=== PATIENT | male | born 1935 | race Caucasian/White ===

== ENCOUNTER 2017-05-27 08:59 | Emergency (ER) | payer OTHER ==
[~2017-05-27] VITALS: Ht 190.5 cm; Wt 85.1 kg
[2017-05-27 09:04] VITALS: BP 175/84; PULSE 93; RESP 16; TEMP 98.1; O2SAT 98
[2017-05-27] MEDS ORDERED: ATOR10TA15 PO (09:28)
[2017-05-27] MEDS ORDERED: LEVO75TA3 PO (09:28)
[2017-05-27] MEDS ORDERED: GLIP10TA6 PO (09:28)
[2017-05-27] MEDS ORDERED: VICT18IN SQ (09:28)
--- NOTE | 2017-05-27 09:39 | PD ---
HPI Chief Complaint: General Weakness Time Seen by Provider: 09:29 Travel History International Travel<30 days: No Contact w/Intl Traveler<30days: No Traveled to known affect area: No History of Present Illness HPI This patient complains of generalized weakness. Patient has had some nausea and vomiting for about 24 hours. No diarrhea. No bleeding. He has no abdominal pain or presyncopal symptoms. No ill contacts. No alleviating factors. Symptom severity is moderate. Duration 24 hours PFSH Past Medical History High Cholesterol: Yes Diabetes: Yes Patient Takes Glucophage: No Thyroid Disease: Yes Influenza Vaccination: No ?: Not Social History Alcohol Use: No Tobacco Use: Yes (10/26 PPD) Substance Use: No Allergies-Medications (Allergen,Severity, Reaction): Coded Allergies: No Known Allergies (Unverified , 05/27/17) Reported Meds & Prescriptions Reported Meds & Active Scripts Active Reported Atorvastatin (Atorvastatin Calcium) 10 Mg Tab 10 Mg PO HS Glipizide 10 Mg Tab 10 Mg PO BIDAC Take 30 minutes before a meal Levothyroxine (Levothyroxine Sodium) 75 Mcg Tab 75 Mcg PO DAILY Victoza Inj (Liraglutide Inj) 18 Mg/3 Ml Pen 1.2 Mg SQ DAILY Review of Systems General / Constitutional: No: Fever Eyes: No: Visual changes HENT: No: Headaches Cardiovascular: No: Chest Pain or Discomfort Respiratory: No: Shortness of Breath Gastrointestinal: Positive: Nausea, Vomiting, No: Abdominal Pain Genitourinary: No: Dysuria Musculoskeletal: Positive: Weakness, No: Pain Skin: No Rash Neurologic: Positive: Weakness Psychiatric: No: Depression Endocrine: No: Polydipsia Hematologic/Lymphatic: No: Easy Bruising Physical Exam Narrative GENERAL: Well-nourished, well-developed patient in no apparent distress. SKIN: Focused skin assessment reveals no rash and nodules. Skin is Warm and dry. HEAD: Atraumatic. Normocephalic. EYES: Pupils equal and round. No scleral icterus. No injection or drainage. ENT: No nasal bleeding or discharge. Mucous membranes pink and moist. NECK: Trachea midline. No JVD. No meningeal signs CARDIOVASCULAR: Regular rate and rhythm. No murmur appreciated. RESPIRATORY: No accessory muscle use. Clear to auscultation. Breath sounds equal bilaterally. GASTROINTESTINAL: Abdomen soft, non-tender, nondistended. Hepatic and splenic margins not palpable. MUSCULOSKELETAL: No obvious deformities. No clubbing. No cyanosis. No edema. NEUROLOGICAL: Awake and alert. No obvious cranial nerve deficits. Motor grossly within normal limits. Normal speech. PSYCHIATRIC: Appropriate mood and affect; insight and judgment normal. Data Data Last Documented VS Vital Signs Date Time Temp Pulse Resp B/P Pulse Ox O2 Delivery O2 Flow Rate FiO2 05/27/17 11:11 90 18 175/76 98 Room Air 05/27/17 09:04 98.1 Orders Sodium Chlor 0.9% 1000 Ml Inj (Ns 1000 M (05/27/17 09:45) Ondansetron Inj (Zofran Inj) (05/27/17 09:45) Iv Access Insert/Monitor (05/27/17 09:36) Complete Blood Count With Diff (05/27/17 09:36) Comprehensive Metabolic Panel (05/27/17 09:36) Urinalysis - C+S If Indicated (05/27/17 09:36) Labs Laboratory Tests Test 05/27/17 05/27/17 09:45 11:10 White Blood Count 11.0 TH/MM3 Red Blood Count 4.19 MIL/MM3 Hemoglobin 12.8 GM/DL Hematocrit 38.5 % Mean Corpuscular Volume 91.9 FL Mean Corpuscular Hemoglobin 30.4 PG Mean Corpuscular Hemoglobin 33.1 % Concent Red Cell Distribution Width 11.9 % Platelet Count 182 TH/MM3 Mean Platelet Volume 7.3 FL Neutrophils (%) (Auto) 88.0 % Lymphocytes (%) (Auto) 6.4 % Monocytes (%) (Auto) 4.7 % Eosinophils (%) (Auto) 0.1 % Basophils (%) (Auto) 0.8 % Neutrophils # (Auto) 9.7 TH/MM3 Lymphocytes # (Auto) 0.7 TH/MM3 Monocytes # (Auto) 0.5 TH/MM3 Eosinophils # (Auto) 0.0 TH/MM3 Basophils # (Auto) 0.1 TH/MM3 CBC Comment DIFF FINAL Differential Comment Sodium Level 139 MEQ/L Potassium Level 3.8 MEQ/L Chloride Level 104 MEQ/L Carbon Dioxide Level 24.3 MEQ/L Anion Gap 11 MEQ/L Blood Urea Nitrogen 26 MG/DL Creatinine 1.70 MG/DL Estimat Glomerular Filtration 39 ML/MIN Rate Random Glucose 232 MG/DL Calcium Level 9.2 MG/DL Total Bilirubin 1.1 MG/DL Aspartate Amino Transf 31 U/L (AST/SGOT) Alanine Aminotransferase 40 U/L (ALT/SGPT) Alkaline Phosphatase 102 U/L Total Protein 7.5 GM/DL Albumin 3.8 GM/DL Urine Collection Type CLEAN CATCH Urine Color STRAW Urine Turbidity CLEAR Urine pH 6.0 Urine Specific [place] 1.017 Urine Protein 100 mg/dL Urine Glucose (UA) 1000 OR GREATER mg/dL Urine Ketones 15 mg/dL Urine Occult Blood SMALL Urine Nitrite NEG Urine Bilirubin NEG Urine Leukocyte Esterase NEG Urine RBC 0-2 /hpf Microscopic Urinalysis Comment CULT NOT INDICATED MDM Medical Decision Making Medical Screen Exam Complete: Yes Emergency Medical Condition: Yes Medical Record Reviewed: Yes Differential Diagnosis Symptomatic anemia, dehydration, electrolyte abnormality Narrative Course I have reviewed the patient's electronic medical record. Patient's last blood draw that I can access his from 2012. At that time he was anemic with hemoglobin 9-1/2 as well as renal sufficiency with creatinine of 1-1/2 IV placed CBC shows significant improvement with hemoglobin over 12 Metabolic profile shows chronic renal insufficiency and mild hyperglycemia LFTs are normal Urinalysis is clean of infection does show glucose Gave him 1 L normal saline IV and a dose of IV Zofran Patient is euvolemic. He has generalized weakness but no suspicion of CVA. I'm recommending walker use and follow up with primary care to start with I wrote him some Zofran to use if needed Diagnosis Primary Impression: Generalized weakness Additional Impression: Nausea and vomiting Qualified Code: R11.2 - Nausea and vomiting, intractability of vomiting not specified, unspecified vomiting type Additional Instructions: The patient was advised to follow up with their physician and return if they worsen. Use walker Med/Other Pt SpecificInfo: Prescription(s) given Disposition: DISCHARGE HOME Condition: Stable Chevy Nunes MD May 27, 2017 09:39
[2017-05-27] MEDS ORDERED: SODIUM CHLOR 0.9% 1000 ML INJ 1,000 ML IV ONE (09:45)
[2017-05-27] MEDS ORDERED: ONDANSETRON HCL 4 MG/2 ML VIAL IVP ONE (09:45)
[2017-05-27 10:00] LABS: AUTOMATED NEUTROPHIL # 9.7 TH/MM3 (1.8-7.7); BASOPHIL # 0.1 TH/MM3 (0-0.2); BASOPHIL % 0.8 % (0.0-2.0); EOSINOPHIL % 0.1 % (0.0-4.0); HEMATOCRIT 38.5 % (39.0-51.0); HEMO FLAGS DIFF FINAL; LYMPH % 6.4 % (9.0-44.0); LYMPHOCYTE # 0.7 TH/MM3 (1.0-4.8); MEAN CELL VOLUME 91.9 FL (80.0-100.0); MEAN CORPUSCULAR HEMOGLOBIN 30.4 PG (27.0-34.0); MEAN CORPUSCULAR HGB CONC 33.1 % (32.0-36.0); MONO % 4.7 % (0.0-8.0); PLATELET COUNT 182 TH/MM3 (150-450); RED BLOOD COUNT 4.19 MIL/MM3 (4.50-5.90); RED CELL DISTRIBUTION WIDTH 11.9 % (11.6-17.2)
[2017-05-27 10:22] LABS: ALT (GPT) 40 U/L (12-78); ANION GAP 11 MEQ/L (5-15); BICARBONATE 24.3 MEQ/L (21.0-32.0); CHLORIDE 104 MEQ/L (98-107); GLOMERULAR FILTRATION RATE 39 ML/MIN (>89); POTASSIUM 3.8 MEQ/L (3.5-5.1); SODIUM (NA) 139 MEQ/L (136-145); TOTAL BILIRUBIN ADULT 1.1 MG/DL (0.2-1.0)
[2017-05-27 10:24] LABS: ALKALINE PHOSPHATASE 102 U/L (45-117)
[2017-05-27 10:32] LABS: AST (GOT) 31 U/L (15-37); BLOOD UREA NITROGEN 26 MG/DL (7-18)
[2017-05-27 11:11] VITALS: BP 175/76; PULSE 90; RESP 18; O2SAT 98
[2017-05-27 11:19] LABS: BLOOD, URINE SMALL (NEG); KETONE, URINE 15 mg/dL (NEG); NITRITE,URINE NEG (NEG)
[2017-05-27 11:22] LABS: GLUCOSE,URINE 1000 OR GREATER mg/dL (NEG)
[2017-05-27 11:30] LABS: METHOD OF COLLECTION CLEAN CATCH; URINE COLOR STRAW (YELLW/STRAW)
[2017-05-27 11:32] LABS: COMMENT (UR) CULT NOT INDICATED; CULTURE IF INDICATED CULT NOT INDICATED; RBC, URINE 0-2 /hpf (0-3)
[2017-05-27] MEDS ORDERED: ZOFR4TAB PO (11:46)
== END 2017-05-27 12:10 | disposition home or self-care (01) ==
LOC: PHED 08:59
DX: R53.1 Weakness (principal); R11.2 Nausea with vomiting, unspecified; F17.200 Nicotine dependence, unspecified, uncomplicated
CPT/HCPCS: 80053; 81001; 85025; 96361; 96374; 99284; J2405; J7030

== ENCOUNTER 2018-04-26 19:01 | Inpatient (IN) ==
--- NOTE | 2018-04-26 20:22 | XR ---
EXAM DATE: 04/26/2018 8:14 PM EDT AGE/SEX: 82 years / Male INDICATIONS: Right hip pain after fall down stairs. CLINICAL DATA: This is the patient's initial encounter. Patient reports that signs and symptoms have been present for 1 day and indicates a pain score of 1/10. MEDICAL/SURGICAL HISTORY: None. None. COMPARISON: None . FINDINGS: 3 views of the pelvis and right hip reveal an acute nondisplaced intertrochanteric hip fracture on th e right. No angulation or distraction. Remaining pelvis is intact. Soft tissues are unremarkable. CONCLUSION: Acute nondisplaced right hip intertrochanteric fracture. Electronically signed by: Bowen Fairchild MD 04/26/2018 8:21 PM EDT
[2018-04-26] MEDS ORDERED: Bisacodyl 10 MG Supp RECTAL PRN (20:47)
[2018-04-26] MEDS ORDERED: Temazepam 15 MG Capsule PO PRN (20:47)
[2018-04-26] MEDS ORDERED: Dextrose 50% in Water 50 ML Vial IV.PUSH PRN (20:47)
--- NOTE | 2018-04-26 21:11 | XR ---
EXAM DATE: 04/26/2018 9:03 PM EDT AGE/SEX: 82 years / Male INDICATIONS: Evaluate for pneumothorax, pneumonia or communicable diseases. Pre-op for right hip astrid aye. CLINICAL DATA: This is the patient's initial encounter. Patient reports that signs and symptoms have been present for 1 day and indicates a pain score of 0/10. MEDICAL/SURGICAL HISTORY: Diabetes mellitus type II. None. COMPARISON: None. FINDINGS: A single AP view of the chest demonstrates the lungs to be symmetrically aerated without evidence of infiltrate or effusion. 7 mm nodule projects over the right base. The cardiomediastinal contours are unremarkable. Osseous structures are intact. CONCLUSION: 1. 7 mm right lower lobe pulmonary nodule. An outpatient follow-up CT of the thorax without IV co ntrast is suggested to further assess. 2. Clear lungs otherwise. Electronically signed by: Bowen Fairchild MD 04/26/2018 9:10 PM EDT
--- NOTE | 2018-04-26 21:18 | ED ---
[facility] General Chief Complaint: Fall Stated Complaint: fall/evac Time Seen by Provider: 04/26/18 19:31 Source: patient Mode of arrival: EMS Limitations: no limitations History of Present Illness HPI Narrative: Is a well 82-year-old male presents to the emergency department fall, right hip pain. States he was walking up stairs when he tripped and fell and on his right hip. He has pain with any movement of the right hip, pain with any attempted weightbearing. Is not on any blood thinners. Denies his head. Denies pain anywhere else. His small abrasion to his right elbow but states that the elbow otherwise feels fine. Related Data Home Medications Medication Instructions Recorded Confirmed glipizide 5 mg PO BID 04/26/18 04/26/18 Allergies Allergy/AdvReac Type Severity Reaction Status Date / Time No Known Allergies Allergy Severe Sneezing Uncoded 04/26/18 19:56 Review of Systems ROS Unobtainable All other systems reviewed negative except as stated in HPI [facility] Medical History Medical History Diabetes (Acute) Social History Social History Smoking Status: Former smoker How Often Do You Have a Drink Containing Alcohol: Monthly or less Recent Travel in [facility] within the Last 8 Weeks: No Recent Out of Country Travel within the Last 8 Weeks: No Immunization History Tetanus Immunization: Unsure Exam Narrative Exam Narrative: GENERAL: Well-appearing 82-year-old man, no acute distress. SKIN: Focused skin assessment warm/dry. Small skin tear to the right elbow. HEAD: Atraumatic. Normocephalic. EYES: Pupils equal and round. No scleral icterus. No injection or drainage. ENT: No nasal bleeding or discharge. Mucous membranes pink and moist. NECK: Trachea midline. No JVD. CARDIOVASCULAR: Regular rate and rhythm. No murmur appreciated. RESPIRATORY: No accessory muscle use. Clear to auscultation. Breath sounds equal bilaterally. GASTROINTESTINAL: Abdomen soft, non-tender, nondistended. Hepatic and splenic margins not palpable. MUSCULOSKELETAL: No obvious deformities. There is pain with any range of motion of the right hip. Pain with palpation of the right hip. Distal knee is unremarkable. Distal perfusion is normal. NEUROLOGICAL: Awake and alert. No obvious cranial nerve deficits. Motor grossly within normal limits. Normal speech. PSYCHIATRIC: Appropriate mood and affect; insight and judgment normal. Course Initial Documented Vital Signs Pulse Rate 82 07/03/18 19:18 Respiratory Rate 17 04/26/18 19:18 Blood Pressure 168/78 H 04/26/18 19:18 Pulse Oximetry 99 04/26/18 19:18 Last Documented Vital Signs Temperature 98.2 F 04/26/18 19:55 Pulse Rate 82 04/26/18 19:18 Respiratory Rate 17 04/26/18 19:18 Blood Pressure 168/78 H 04/26/18 19:18 Pulse Oximetry 99 04/26/18 19:18 Medical Decision Making MDM Narrative Medical decision making narrative: Will 82-year-old with trip and fall and right hip pain. Intertrochanteric hip fracture resulted. No evidence of other injury. On blood thinners. No evidence of head injury. Added preop labs. Spoke with Dr. Tejada, will admit patient. Lab Data Lab results reviewed: No I reviewed the patient's lab results. Imaging Data Radiologist's impression: ITS Impressions Hip X-Ray 04/26/18 19:39 CONCLUSION: Acute nondisplaced right hip intertrochanteric fracture. Chest X-Ray 04/26/18 20:27 CONCLUSION: 1. 7 mm right lower lobe pulmonary nodule. An outpatient follow-up CT of the thorax without IV contrast is suggested to further assess. 2. Clear lungs otherwise. Discharge Plan Discharge Disposition Patient Disposition: 30 Still Patient Discharge Details Discharge Problem: Closed fracture of right hip Physicians Team ED Provider: Jamari Blum Primary Care Provider: Diogo Carr Rxs /Orders / Referrals /Forms Prescriptions: No Action glipizide 5 mg Tablet 5 mg PO BID RF: 0 Discharge Interventions Interventions: Vital Signs Last Done: 04/26/18 19:55 Status ED Status: With Doctor
[2018-04-26 21:47] LABS: Baso % (Auto) 0.5 % (0.0-2.0); Eos # (Auto) 0.2 th/mm3 (0.0-0.4); Hemoglobin 11.9 gm/dL (13.0-17.0); Mean Corpuscular HGB Conc 34.8 % (32.0-36.0); Mean Corpuscular Hemoglobin 32.4 pg (27.0-34.0); Mean Platelet Volume 8.1 fL (7.0-11.0); Mono # (Auto) 0.5 th/mm3 (0.0-0.9); Mono % (Auto) 6.7 % (0.0-8.0); Neut # (Auto) 5.4 th/mm3 (1.8-7.7); Neut % (Auto) 75.8 % (16.0-70.0); Platelet Count 180 th/mm3 (150-450); Red Blood Count 3.66 mil/mm3 (4.50-5.90); Red Cell Distribution Width 12.2 % (11.6-17.2); White Blood Count 7.2 th/mm3 (4.0-11.0)
[2018-04-26 21:52] LABS: Bilirubin,Urine Negative (Negative); Clarity,Urine Clear (Clear); Color,Urine Straw (Yellw/Straw); Glucose,Urine (UA) 500 or Greater mg/dL (Negative); Leukocyte Esterase,Urine Negative (Negative); Nitrite,Urine Negative (Negative); Specific Gravity,Urine 1.017 (1.002-1.035)
[2018-04-26 22:01] LABS: Activated Partial Thrombo Time 23.2 sec (24.3-30.1); Prothrombin Time 10.2 sec (9.8-11.6)
[2018-04-26 22:14] LABS: Albumin 3.3 g/dL (3.4-5.0); Anion Gap 10 meq/L (5-15); Aspartate Aminotransferase 23 U/L (15-37); Blood Urea Nitrogen 19 mg/dL (7-18); Calcium 9.2 mg/dL (8.5-10.1); Carbon Dioxide 25.4 meq/L (21.0-32.0); Chloride 102 meq/L (98-107); Glomerular Filtration Rate 37 mL/min (>89); Glucose,Random 334 mg/dL (74-106); Potassium 4.2 meq/L (3.5-5.1); Sodium 137 meq/L (136-145)
[2018-04-26 22:19] LABS: Alanine Aminotransferase 47 U/L (12-78); Alkaline Phosphatase 94 U/L (45-117); Total Protein 6.4 g/dL (6.4-8.2)
[2018-04-26] MEDS: Insulin NovoLOG Aspart Correctional Sugar Inj SQ SCH (22:28)
[2018-04-26] MEDS: Sod Chloride 0.9% Inj 1,000 ML IV.CONT SCH (22:29)
[2018-04-26] MEDS: Senna/Docusate Sodium 8.6/50 MG Tablet PO SCH (22:30)
--- NOTE | 2018-04-26 23:10 | P.HPIM ---
History of Present Illness Primary Care Physician: Diogo Carr MD History of Present Illness: 82 y/o male with a history of DM presented to the ED after suffering a fall at home. Patient states he was walking out the back porch and fell landing on his right hip. He states the pain is a 6/10, constant throbbing pain, with radiation to his ankle, with no associated symptoms. Better with pain medication , worse with movement. Denies any chest pain or sob. - Inpatient Certification If this patient has been admitted as an Inpatient: I certify that the inpatient services were ordered in accordance with Medicare regulations governing the order. This includes certification that hospital inpatient services are reasonable and necessary and in the case of services not specified as inpatient-only under 42 CFR 419.22(n), that they are appropriately provided as inpatient services in accordance to with the 2-midnight benchmark under 43 CFR 412.3(e) Estimated Total Length of Stay (Days): 2 Plans for Post Hospital Care: Not yet determined PMF - History History Provided By: Patient - Medical History Medical History: Medical History (Last Updated 04/27/18 @ 00:43 by ОЛЕГ Ding) Amputated toe of left foot Diabetes - Surgical History Surgical History: Surgical History (Last Updated 04/27/18 @ 00:43 by ОЛЕГ Ding) Amputated toe of left foot - Family History Family History: Family History (Last Updated 04/27/18 @ 00:44 by ОЛЕГ Ding) Father Prostate cancer - Tobacco History Second Hand Smoke Exposure: No Tobacco Use In Past 30 Days: Yes Smoking Status: Current some day smoker Tobacco Type: Cigarettes Cigarettes Per Day: 2 - Alcohol History How Often Do You Have a Drink Containing Alcohol: Monthly or less - Travel History Recent Travel in the [place] Within the Last 8 Weeks: No Recent Travel Out of the Country Within the Last 8 Weeks: No - Immunization History Tetanus Immunization: Unsure Medications and Allergies Active Medications: Active Medications Hydrocodone Bitart/Acetaminophen (Benedict 5/325) 1 tab PO Q4H PRN PRN Reason: PAIN SCALE 1 TO 10 Al Hydroxide/Mg Hydroxide (Milk Of Magnesia Liq) 30 ml PO Q12H PRN PRN Reason: Mild Constipation Bisacodyl (Dulcolax Supp) 10 mg RECTAL DAILY PRN PRN Reason: SEVERE CONSITIPATION Dextrose (D50w Vial) 50 ml IV.PUSH UNSCH PRN PRN Reason: PER HYPOGLYCEMIA PROTOCOL Glucagon (Glucagon Inj) 1 mg OTHER PRN PRN PRN Reason: for Hypoglycemia Protocol Sodium Chloride (Ns Inj) 1,000 mls @ 50 mls/hr IV.CONT .Q20H [facility] Last Admin: 04/26/18 22:29 Dose: 50 mls/hr Insulin Aspart (Novolog Insulin Suppl Scale Inj) 0 unit SQ ACHS [facility]; Protocol Last Admin: 04/26/18 22:28 Dose: 100 unit Lactulose (Lactulose Liq) 30 ml PO DAILY PRN PRN Reason: SEVERE CONSITIPATION Senna/Docusate Sodium (Roxy-Colace) 1 tab PO BID [facility] Last Admin: 04/26/18 22:30 Dose: 1 tab Sennosides (Senokot) 17.2 mg PO Q12H PRN PRN Reason: Moderate Constipation Sodium Chloride (Ns Flush) 2 ml IV.FLUSH PRN PRN PRN Reason: FLUSH AFTER USING IV ACCESS Temazepam (Restoril) 15 mg PO HS PRN PRN Reason: INSOMNIA Allergies Allergy/AdvReac Type Severity Reaction Status Date / Time No Known Allergies Allergy Severe Sneezing Uncoded 04/26/18 19:56 Home Medications Medication Instructions Recorded Confirmed Type glipizide 5 mg PO BID 04/26/18 04/26/18 History Exam Vital signs: Vital Signs 04/26/18 19:18 04/26/18 19:55 Temperature 98.2 F Pulse Rate 82 Respiratory Rate 17 Blood Pressure 168/78 H Pulse Oximetry 99 Intake & Output 04/26/18 04/26/18 04/27/18 06:59 18:59 06:59 Weight 86.183 kg - Constitutional no acute distress - Routine HEENT Exam Head: Present: normocephalic Eye: Present: EOMI, PERRL - Routine Neck Exam Present: supple, full ROM - Routine Respiratory Exam Absent: accessory muscle use, wheezes, crackles - Routine Cardiovascular Exam Present: RRR - Routine Abdominal Exam Present: soft, normoactive bowel sounds. Absent: distended - Routine Extremities Exam Present: edema (Right hip), pulses intact - Detailed Lower Extremity Exam Upper leg: Right: deformity, swelling, tenderness - Routine Skin Exam Present: intact - Routine Neurological Exam Present: alert, oriented X3, normal speech Results - Labs CBC & Chem 7: 04/26/18 20:45 04/26/18 20:45 Labs: Short CBC 04/26/18 Range/Units 20:45 WBC 7.2 (4.0-11.0) th/mm3 Hgb 11.9 L (13.0-17.0) gm/dL Hct 34.0 L (39.0-51.0) % Plt Count 180 (150-450) th/mm3 BMP 04/26/18 20:45 Sodium 137 Potassium 4.2 Chloride 102 Carbon Dioxide 25.4 BUN 19 H Creatinine 1.77 H Calcium 9.2 Liver Function 04/26/18 Range/Units 20:45 Total Bilirubin 0.4 (0.2-1.0) mg/dL AST 23 (15-37) U/L ALT 47 (12-78) U/L Alkaline Phosphatase 94 (45-117) U/L Albumin 3.3 L (3.4-5.0) g/dL Urine 04/26/18 Range/Units 20:45 Urine Color Straw (Yellw/Straw) Urine Clarity Clear (Clear) Urine pH 7.0 (5.0-8.5) Ur Specific [place] 1.017 (1.002-1.035) Urine Protein Negative (Neg-Trace) mg/dL Urine Glucose (UA) 500 or greater (Negative) mg/dL - Imaging Impressions Hip X-Ray 04/26/18 19:39 CONCLUSION: Acute nondisplaced right hip intertrochanteric fracture. Chest X-Ray 04/26/18 20:27 CONCLUSION: 1. 7 mm right lower lobe pulmonary nodule. An outpatient follow-up CT of the thorax without IV contrast is suggested to further assess. 2. Clear lungs otherwise. Caprini VTE Risk Assessment Caprini VTE Risk Assessment: No/Low Risk (score <= 1) Caprini Risk Assessment Model: Point Value = 1 Point Value = 2 Point Value = 3 Point Value = 5 Age 41-60 Minor surgery BMI > 25 kg/m2 Swollen legs Varicose veins or History of unexplained or recurrent spontaneous Oral contraceptives or hormone replacement Sepsis (< 1 month) Serious lung disease, including pneumonia (< 1 month) Abnormal pulmonary function Acute myocardial infarction Congestive heart failure (< 1 month) History of inflammatory bowel disease Medical patient at bed rest Age 61-74 Arthroscopic surgery Major open surgery (> 45 min) Laparoscopic surgery (> 45 min) Malignancy Confined to bed (> 72 hours) Immobilizing plaster cast Central venous access Age >= 75 History of VTE Family history of VTE Factor V Leiden Prothrombin [id number] Lupus anticoagulant Anticardiolipin antibodies Elevated serum homocysteine Heparin-induced thrombocytopenia Other congenital or acquired thrombophilia Stroke (< 1 month) Elective arthroplasty Hip, pelvis, or leg fracture Acute spinal cord injury (< 1 month) Prophylaxis Regimen: Total Risk Factor Score Risk Level Prophylaxis Regimen 0-1 Low Early ambulation 2 Moderate Order ONE of the following: *Sequential Compression Device (SCD) *Heparin 5000 units SQ BID 3-4 Higher Order ONE of the following medications: *Heparin 5000 units SQ TID *Enoxaparin/Lovenox 40 mg SQ daily (WT < 150 kg, CrCl > 30 mL/min) *Enoxaparin/Lovenox 30 mg SQ daily (WT < 150 kg, CrCl > 10-29 mL/min) *Enoxaparin/Lovenox 30 mg SQ BID (WT < 150 kg, CrCl > 30 mL/min) AND/OR *Sequential Compression Device (SCD) 5 or more Highest Order ONE of the following medications: *Heparin 5000 units SQ TID (Preferred with Epidurals) *Enoxaparin/Lovenox 40 mg SQ daily (WT < 150 kg, CrCl > 30 mL/min) *Enoxaparin/Lovenox 30 mg SQ daily (WT < 150 kg, CrCl > 10-29 mL/min) *Enoxaparin/Lovenox 30 mg SQ BID (WT < 150 kg, CrCl > 30 mL/min) AND *Sequential Compression Device (SCD) Assessment and Plan - Plan Right hip fracture -Hip x ray reveiwed and shows an acute non displaced right hip intertrochanteric fracture. -Pain management with PO norco, Morphine IV if needed for breakthrough -Consult orthopedics -NPO, IVF DM, chronic -Accu checks with SSI -Hold home medication while npo -Diabetic diet when no longer NPO DVT prophylaxis: SCD to non affected leg Code Status: Full Discussed Condition With: Patient and RN
[2018-04-27] MEDS ORDERED: Morphine Inj 4 MG/ML Vial IV.PUSH ONE (00:30)
[2018-04-27] MEDS ORDERED: Morphine Inj 4 MG/ML Vial IV.PUSH PRN (00:40)
[2018-04-27] MEDS ORDERED: Chlorhexidine Gluconate 2% 1 Pack (2 Cloths) TOPICAL SCH ×2 (02:45)
[2018-04-27] MEDS ORDERED: Sodium Chlor 0.9% Inj 500 ML IV.SIG SCH ×2 (03:00)
[2018-04-27 06:49] LABS: Baso % (Auto) 0.4 % (0.0-2.0); Eos # (Auto) 0.1 th/mm3 (0.0-0.4); Eos % (Auto) 1.3 % (0.0-4.0); Hematocrit 31.7 % (39.0-51.0); Hemoglobin 11.1 gm/dL (13.0-17.0); Lymph # (Auto) 1.1 th/mm3 (1.0-4.8); Lymph % (Auto) 12.6 % (9.0-44.0); Mean Corpuscular HGB Conc 34.9 % (32.0-36.0); Mean Corpuscular Volume 91.6 fL (80.0-100.0); Mean Platelet Volume 7.7 fL (7.0-11.0); Mono # (Auto) 0.6 th/mm3 (0.0-0.9); Mono % (Auto) 7.3 % (0.0-8.0); Neut # (Auto) 6.9 th/mm3 (1.8-7.7); Neut % (Auto) 78.4 % (16.0-70.0); Platelet Count 161 th/mm3 (150-450); Red Blood Count 3.46 mil/mm3 (4.50-5.90); White Blood Count 8.7 th/mm3 (4.0-11.0)
[2018-04-27 07:09] LABS: Calcium 8.8 mg/dL (8.5-10.1); Carbon Dioxide 24.3 meq/L (21.0-32.0); Potassium 4.5 meq/L (3.5-5.1)
[2018-04-27] MEDS ORDERED: Sodium Chlor 0.9% Inj 250 ML ONE (08:17)
[2018-04-27] MEDS ORDERED: ceFAZolin 2 GM Premix Inj 2 GM/50 ML PIGGYBACK IV.SIG ONE (08:17)
--- NOTE | 2018-04-27 08:29 | MB ---
cc: Bryan Weaver MD DATE: 04/27/2018 REASON FOR CONSULTATION: Right hip fracture. HISTORY OF PRESENT ILLNESS: An 82-year-old male with a past history of diabetes, who presented to [facility] Emergency Room after a fall at home. He was walking on the back porch, tripped, fell, landed on the right hip. He developed immediate onset of severe pain and is unable to stand, walk, ambulate or bear weight. He had a constant throbbing pain with radiation to the ankle. He denies hitting his head. Denies loss of consciousness. He presented to the emergency room. He was medicated with pain medication, which helped. No shortness of breath, no chest pain. PAST MEDICAL HISTORY: Positive for diabetes mellitus. HOME MEDICATIONS: Include: Glipizide. ALLERGIES: HE HAS NO KNOWN DRUG ALLERGIES. SOCIAL HISTORY: Former smoker, does not currently smoke, drink or use drugs. FAMILY HISTORY: Reviewed, noncontributory. REVIEW OF SYSTEMS: Negative for 10 systems other than HPI. PHYSICAL EXAMINATION: GENERAL: Awake, alert, lying in bed, in mild distress as related to his injury. HEENT: Normocephalic, atraumatic. Pupils round, reactive. Extraocular muscles are intact. NECK: Supple. LUNGS: Clear. HEART: Regular rate and rhythm. ABDOMEN: Soft, nontender. EXTREMITIES: His right hip is shortened and externally rotated. He has pain with passive motion of the right hip. He can flex and extend his ankle and toes distally. SKIN: Warm, dry, intact. NEUROLOGIC: He is awake, alert. No focal deficits. PSYCHIATRIC: His mood is appropriate as well as affect. VITAL SIGNS: Temperature 98.2, pulse is 82, respirations are 17, blood pressure 160/78, pulse oximetry is 99% on room air. LABORATORY DATA: X-rays of the right hip shows an acute right intertrochanteric hip fracture. IMPRESSION: An 82-year-old male status post fall, right intertrochanteric hip fracture. PLAN: I discussed the diagnosis with the patient. Discussed treatment options to have the option of nonoperative treatment versus surgery. Surgery would consist of open reduction and internal fixation with intramedullary nailing of the right hip fracture. The risks of surgery discussed, which include, but not limited to anesthesia, bleeding, infection, damage to nerves and blood vessels, pain, stiffness, failure of hardware, nonunion, malunion, leg length discrepancies, blood clot, pulmonary embolus or even . The patient's pain is severe. He favored the benefits over the risks and he did wish to proceed with surgery. Written consent has been obtained, the surgical site has been marked. Bryan Weaver MD JWHarriett/TL , 08:14 AM , 08:27 AM
[2018-04-27] MEDS ORDERED: Promethazine 25 MG Supp RECTAL PRN (09:13)
[2018-04-27] MEDS ORDERED: Post-op Orders (for Pharmacy) OTHER STA (09:13)
[2018-04-27] MEDS ORDERED: fentaNYL Citrate Inj 100 MCG/2 ML Ampul ONE (09:22)
--- NOTE | 2018-04-27 09:26 | MP ---
cc: Bryan Weaver MD DATE OF OPERATION: 04/27/2018 DATE OF OPERATION: 04/27/2018 PREOPERATIVE DIAGNOSIS: Right intertrochanteric hip fracture. POSTOPERATIVE DIAGNOSIS: Right intertrochanteric hip fracture. PROCEDURE PERFORMED: Right trochanteric femoral nailing for right intertrochanteric hip fracture. SURGEON: Bryan Weaver MD [employer]ER: CHING Castro. ANESTHESIA: General. ESTIMATED BLOOD LOSS: 100 mL. COMPLICATIONS: None. IMPLANTS USED: Synthes 11 x 180 mm titanium trochanteric femoral nail with a 125-degree spiral blade. JUSTIFICATION: This patient is an 82-year-old male who fell and sustained a displaced right intertrochanteric hip fracture. He was taken to [facility] Emergency Room, complained of severe pain. X-ray confirmed the above named findings. Orthopedic surgery was consulted. The patient was counseled on risks, benefits and alternatives of the above-named proposed surgical procedure. He did wish to proceed with surgery. PROCEDURE IN DETAIL: Written consent was obtained. The patient was identified by name, taken to the operating room and placed supine on the operating table. General anesthesia was administered as well as 2 grams of IV Ancef and 1 gram IV vancomycin. The right foot was placed in a padded traction boot. The left leg placed in a padded well leg lama. Longitudinal traction applied to the right lower extremity. Fluoroscopic imaging assisted with preliminary reduction. The right hip and right lower extremity was then prepped and draped using isopropyl alcohol, Hibiclens solution and DuraPrep solution. After a timeout was performed, a longitudinal incision was made over lateral aspect of the right hip. The fascial layer was incised. A guidewire was used to gain entrance into the intramedullary canal of the femur. This was followed by a cannulated entry reamer. Subsequently, a Synthes 11 mm titanium trochanteric femoral nail was inserted into the intramedullary canal of the femur. The 125-degree guide was used to place a guide pin centered into the femoral head on the AP and lateral fluoroscopic projections. Subsequently, a 105 mm titanium spiral blade was implanted over the guidewire. The top locking screw was then secured to create a fixed angle sliding construct distally. The locking jig was used to place a single lateral to medial transverse static locking screw. Fluoroscopic imaging confirmed hardware placement and fracture reduction. The surgical wounds thoroughly irrigated with sterile saline solution. Fascial layer was closed with #1 Vicryl suture, subcutaneous layer with 2-0 Vicryl suture. Skin was closed with Dermabond. Sterile dressing was applied. The patient tolerated the procedure well. No intraoperative complications noted. Vishal Rodrigues PA-C was present for entire procedure to include patient positioning and the procedure itself. The medical necessity of the physician teacher assistant was indicated in this case to the complexity of the procedure. He assisted with appropriate manipulation of the leg and also assisted with retraction of muscle, tendon, bone, and neurovascular structures. He assisted in both achieving and maintaining fracture reduction as well as implantation of the internal fixation device. Bryan Weaver MD JWM/KOBE , 09:07 AM , 09:24 AM
--- NOTE | 2018-04-27 09:42 | XR ---
EXAM DATE: 04/27/2018 9:39 AM EDT AGE/SEX: 82 years / Male INDICATIONS: Post-op ORIF right hip fracture. CLINICAL DATA: This is the patient's subsequent encounter. Patient reports that signs and symptoms h ave been present for 2 days and indicates a pain score of Nonresponsive. MEDICAL/SURGICAL HISTORY: Non-responsive. Non-responsive. COMPARISON: No prior exams available for comparison. CONCLUSION: Fluoroscopic images during placement of trochanter nail right proximal femur/hip fixating an intertro chanteric fracture Electronically signed by: Fran Lopez MD 04/27/2018 9:40 AM EDT
[2018-04-27] MEDS: Insulin NovoLOG Aspart Correctional Sugar Inj SQ SCH ×3 (09:43→21:43)
[2018-04-27] MEDS ORDERED: *Meperidine Inj 25 MG/ML Vial PERIprocedural Use ONLY ONE (09:47)
[2018-04-27] MEDS ORDERED: ceFAZolin Inj 2,000 MG in Sodium Chlor 0.9% Inj 80 ML IV.SIG SCH (10:00)
[2018-04-27] MEDS ORDERED: Glycopyrrolate Inj 1 MG/5 ML Syringe IV.PUSH ONE (11:59)
[2018-04-27] MEDS ORDERED: Lidocaine PF 1% Inj 5 ML Syringe INFILTRATN ONE (11:59)
[2018-04-27] MEDS ORDERED: Phenylephrine/NS 1000 MCG/10ML Syringe IV.PUSH ONE (11:59)
[2018-04-27] MEDS ORDERED: Neostigmine Inj 5 MG/5 ML Syringe IV.PUSH ONE (11:59)
--- NOTE | 2018-04-27 13:05 | P.PNIM ---
Subjective Interval history: Mouth feels dry. Otherwise pain control. Physical Exam Vital signs: Vital Signs 04/26/18 19:18 04/26/18 19:55 04/26/18 22:00 Temperature 98.2 F 97.3 F L Pulse Rate 82 86 Respiratory Rate 17 18 Blood Pressure 168/78 H 101/55 L Pulse Oximetry 99 97 04/27/18 00:00 04/27/18 04:00 04/27/18 08:00 Temperature 98 F 97.8 F 97.7 F Pulse Rate 84 97 H 96 H Respiratory Rate 18 18 18 Blood Pressure 87/53 L 110/64 123/61 Pulse Oximetry 99 96 97 04/27/18 09:14 04/27/18 09:30 04/27/18 09:45 Temperature 98.4 F Pulse Rate 85 78 80 Respiratory Rate 20 15 13 Blood Pressure 105/56 L 83/47 L 94/51 L Pulse Oximetry 100 100 100 04/27/18 10:00 04/27/18 10:15 04/27/18 10:30 Temperature Pulse Rate 80 79 85 Respiratory Rate 14 13 14 Blood Pressure 76/38 L 76/45 L 93/55 L Pulse Oximetry 100 98 98 04/27/18 10:41 04/27/18 10:45 Temperature 97.7 F Pulse Rate 85 Respiratory Rate 13 Blood Pressure 100/55 L Pulse Oximetry 98 99 Intake & Output 04/26/18 04/27/18 04/27/18 18:59 06:59 18:59 Intake Total 800 / 800 Output Total 50 / 50 Balance 750 / 750 Weight 86.183 kg Intake: IV 500 / 500 LR 1000 mL Inj 1,000 ML @ 100 500 / 500 mls/hr IV.CONT .Q10H [facility] Rx#: [id number] Anesthesia Amount 300 / 300 Output: Estimated Blood Loss 50 / 50 Other: Weight On Admission 86.183 kg Narrative: GENERAL: This is a well-nourished, well-developed patient, in no apparent distress. CARDIOVASCULAR: Regular rate and rhythm without murmurs, gallops, or rubs. RESPIRATORY: Clear to auscultation. Breath sounds equal bilaterally. No wheezes , rales, or rhonchi. GASTROINTESTINAL: Abdomen soft, non-tender, nondistended. Normal active bowel sounds MUSCULOSKELETAL: Right hip bandage clean dry intact NEURO: Alert & Oriented x4 to person, place, time, situation. Moves all ext x4 Results - Labs CBC & Chem 7: 04/27/18 06:12 04/27/18 06:12 Laboratory Results - last 24 hr 04/26/18 04/26/18 04/26/18 20:45 20:45 20:45 WBC 7.2 RBC 3.66 L Hgb 11.9 L Hct 34.0 L MCV 93.0 MCH 32.4 MCHC 34.8 RDW 12.2 Plt Count 180 MPV 8.1 Neut % (Auto) 75.8 H Lymph % (Auto) 14.0 [place] % (Auto) 6.7 Eos % (Auto) 3.0 Baso % (Auto) 0.5 Neut # (Auto) 5.4 Lymph # (Auto) 1.0 [place] # (Auto) 0.5 Eos # (Auto) 0.2 Baso # (Auto) 0.0 WBC Differential . Differential Comment Auto diff final PT 10.2 INR 1.0 APTT 23.2 L Sodium 137 Potassium 4.2 Chloride 102 Carbon Dioxide 25.4 Anion Gap 10 BUN 19 H Creatinine 1.77 H Estimated GFR 37 L POC Glucose Random Glucose 334 H Calcium 9.2 Total Bilirubin 0.4 AST 23 ALT 47 Alkaline Phosphatase 94 Total Protein 6.4 Albumin 3.3 L Urine Color Urine Clarity Urine pH Ur Specific [place] Urine Protein Urine Glucose (UA) Urine Ketones Urine Occult Blood Urine Nitrate Urine Bilirubin Urine Urobilinogen Ur Leukocyte Esterase Blood Type Blood Type Recheck Antibody Screen 04/26/18 04/26/18 04/27/18 20:45 22:03 05:50 WBC RBC Hgb Hct MCV MCH MCHC RDW Plt Count MPV Neut % (Auto) Lymph % (Auto) [place] % (Auto) Eos % (Auto) Baso % (Auto) Neut # (Auto) Lymph # (Auto) [place] # (Auto) Eos # (Auto) Baso # (Auto) WBC Differential Differential Comment PT INR APTT Sodium Potassium Chloride Carbon Dioxide Anion Gap BUN Creatinine Estimated GFR POC Glucose 328 H Random Glucose Calcium Total Bilirubin AST ALT Alkaline Phosphatase Total Protein Albumin Urine Color Straw Urine Clarity Clear Urine pH 7.0 Ur Specific [place] 1.017 Urine Protein Negative Urine Glucose (UA) 500 or greater Urine Ketones Negative Urine Occult Blood Negative Urine Nitrate Negative Urine Bilirubin Negative Urine Urobilinogen Less than 2 Ur Leukocyte Esterase Negative Blood Type A Positive Blood Type Recheck Required Antibody Screen Negative 04/27/18 04/27/18 04/27/18 06:12 06:12 09:21 WBC 8.7 RBC 3.46 L Hgb 11.1 L Hct 31.7 L MCV 91.6 MCH 32.0 MCHC 34.9 RDW 12.0 Plt Count 161 MPV 7.7 Neut % (Auto) 78.4 H Lymph % (Auto) 12.6 [place] % (Auto) 7.3 Eos % (Auto) 1.3 Baso % (Auto) 0.4 Neut # (Auto) 6.9 Lymph # (Auto) 1.1 [place] # (Auto) 0.6 Eos # (Auto) 0.1 Baso # (Auto) 0.0 WBC Differential . Differential Comment Auto diff final PT INR APTT Sodium 139 Potassium 4.5 Chloride 104 Carbon Dioxide 24.3 Anion Gap 11 BUN 21 H Creatinine 1.77 H Estimated GFR 37 L POC Glucose 285 H Random Glucose 248 H Calcium 8.8 Total Bilirubin AST ALT Alkaline Phosphatase Total Protein Albumin Urine Color Urine Clarity Urine pH Ur Specific [place] Urine Protein Urine Glucose (UA) Urine Ketones Urine Occult Blood Urine Nitrate Urine Bilirubin Urine Urobilinogen Ur Leukocyte Esterase Blood Type Blood Type Recheck Antibody Screen - Imaging Impressions Hip X-Ray 04/26/18 19:39 CONCLUSION: Acute nondisplaced right hip intertrochanteric fracture. Chest X-Ray 04/26/18 20:27 CONCLUSION: 1. 7 mm right lower lobe pulmonary nodule. An outpatient follow-up CT of the thorax without IV contrast is suggested to further assess. 2. Clear lungs otherwise. Hip X-Ray 04/27/18 00:00 CONCLUSION: Fluoroscopic images during placement of trochanter nail right proximal femur/ hip fixating an intertrochanteric fracture Assessment and Plan - Plan Right intertrochanteric hip fracture status post op daily with orthopedic surgery Dr. Weaver Continue postoperative care, pain control, physical therapy per orthopedic surgery DM type II, chronic -Accu checks with SSI -Resume home glipizide dosing DVT prophylaxis: SCD to non affected leg, Lovenox
[2018-04-27] MEDS: Senna/Docusate Sodium 8.6/50 MG Tablet PO SCH ×2 (14:51→21:41)
[2018-04-27] MEDS: ceFAZolin 2 GM Premix Inj 2 GM/50 ML PIGGYBACK IV.SIG SCH ×2 (15:49→23:57)
--- NOTE | 2018-04-27 21:57 | ECG ---
Date Performed: 04/26/2018 Time Performed: 20:47:16 PTAGE: 82 years EKG: Sinus rhythm BORDERLINE LEFT AXIS DEVIATION LOW QRS VOLTAGE IN PRECORDIAL LEADS BORDERLINE ECG NO PREVIOUS TRACING DOCTOR: Tanner Arambula Interpretating Date/Time 04/27/2018 21:57:09
[2018-04-28 04:13] LABS: Hematocrit 25.5 % (39.0-51.0); Hemoglobin 8.8 gm/dL (13.0-17.0)
--- NOTE | 2018-04-28 07:38 | P.PNOP ---
Subjective Interval history: pain controlled. Physical Exam Vital signs: Vital Signs 04/27/18 08:00 04/27/18 09:14 04/27/18 09:30 Temperature 97.7 F 98.4 F Pulse Rate 96 H 85 78 Respiratory Rate 18 20 15 Blood Pressure 123/61 105/56 L 83/47 L Pulse Oximetry 97 100 100 04/27/18 09:45 04/27/18 10:00 04/27/18 10:15 Temperature Pulse Rate 80 80 79 Respiratory Rate 13 14 13 Blood Pressure 94/51 L 76/38 L 76/45 L Pulse Oximetry 100 100 98 04/27/18 10:30 04/27/18 10:41 04/27/18 10:45 Temperature 97.7 F Pulse Rate 85 85 Respiratory Rate 14 13 Blood Pressure 93/55 L 100/55 L Pulse Oximetry 98 98 99 04/27/18 12:00 04/27/18 15:56 04/27/18 16:00 Temperature 98 F 97.8 F Pulse Rate 85 96 H Respiratory Rate 18 15 18 Blood Pressure 96/50 L 97/54 L Pulse Oximetry 96 95 04/27/18 17:33 04/27/18 20:00 04/28/18 00:00 Temperature 98.4 F 98.3 F Pulse Rate 105 H 101 H Respiratory Rate 15 12 16 Blood Pressure 103/57 L 99/54 L Pulse Oximetry 94 L 93 L 04/28/18 04:00 Temperature 98.1 F Pulse Rate 97 H Respiratory Rate 18 Blood Pressure 100/56 L Pulse Oximetry 93 L Intake & Output 04/27/18 04/28/18 04/28/18 18:59 06:59 18:59 Intake Total 850 / 850 Output Total 50 / 50 400 / 400 Balance 800 / 800 -400 / -400 Intake: IV 550 / 550 LR 1000 mL Inj 1,000 ML @ 100 500 / 500 mls/hr IV.CONT .Q10H [facility] Rx#: [id number] Ancef 2 GM Premix Inj 2 gm In 50 / 50 50 ml @ 100 mls/hr IV.SIG Q8H [facility] Rx#:[id number] Anesthesia Amount 300 / 300 Output: Urine 400 / 400 Estimated Blood Loss 50 / 50 Other: # Voids 0 Narrative: in bed, nad dressing c/d/i neg homans nvi - Constitutional no acute distress Results - Labs CBC & Chem 7: 04/28/18 03:56 04/27/18 06:12 Laboratory Results - last 24 hr 04/27/18 04/27/18 04/27/18 09:21 17:04 20:02 Hgb Hct POC Glucose 285 H 279 H 335 H 04/28/18 03:56 Hgb 8.8 L D Hct 25.5 L POC Glucose - Imaging Impressions Hip X-Ray 04/27/18 00:00 CONCLUSION: Fluoroscopic images during placement of trochanter nail right proximal femur/ hip fixating an intertrochanteric fracture Assessment and Plan - Ortho Post Op Day # 1 - Problem List (1) Closed fracture of right hip Code(s): S72.001A - Fracture of unspecified part of neck of right femur, initial encounter for closed fracture Status: Acute Qualifiers: Encounter type: initial encounter Qualified Code(s): S72.001A - Fracture of unspecified part of neck of right femur, initial encounter for closed fracture - Assessment and Plan s/p R Troch nail wbat daily dressing changes jacinda d/c on asa 81 d/c planning to snf f/up dr. woods 2 weeks
[2018-04-28] MEDS: Multivitamin/Minerals Therapeutic Tablet PO SCH (09:09)
[2018-04-28] MEDS: Folic Acid 1 MG Tablet PO SCH (09:09)
[2018-04-28] MEDS: Insulin NovoLOG Aspart Correctional Sugar Inj SQ SCH ×4 (09:10→21:59)
[2018-04-28] MEDS: ceFAZolin 2 GM Premix Inj 2 GM/50 ML PIGGYBACK IV.SIG SCH (09:11)
[2018-04-28] MEDS: Enoxaparin Inj 40 MG/0.4 ML Syringe SQ SCH (09:12)
[2018-04-28] MEDS: Senna/Docusate Sodium 8.6/50 MG Tablet PO SCH ×2 (09:13→21:57)
--- NOTE | 2018-04-28 11:04 | P.PNIM ---
Subjective Interval history: Patient states that he is still having some pain over the hip area. He is open now going to rehab post hospitalization. Physical Exam Vital signs: Vital Signs 04/27/18 12:00 04/27/18 15:56 04/27/18 16:00 Temperature 98 F 97.8 F Pulse Rate 85 96 H Respiratory Rate 18 15 18 Blood Pressure 96/50 L 97/54 L Pulse Oximetry 96 95 04/27/18 17:33 04/27/18 20:00 04/28/18 00:00 Temperature 98.4 F 98.3 F Pulse Rate 105 H 101 H Respiratory Rate 15 12 16 Blood Pressure 103/57 L 99/54 L Pulse Oximetry 94 L 93 L 04/28/18 04:00 04/28/18 08:00 Temperature 98.1 F 98 F Pulse Rate 97 H 96 H Respiratory Rate 18 18 Blood Pressure 100/56 L 117/56 L Pulse Oximetry 93 L 95 Intake & Output 04/27/18 04/28/18 04/28/18 18:59 06:59 18:59 Intake Total 850 / 850 50 / 50 Output Total 50 / 50 400 / 400 Balance 800 / 800 -350 / -350 Intake: IV 550 / 550 50 / 50 LR 1000 mL Inj 1,000 ML @ 100 500 / 500 mls/hr IV.CONT .Q10H [facility] Rx#: [id number] Ancef 2 GM Premix Inj 2 gm In 50 / 50 50 / 50 50 ml @ 100 mls/hr IV.SIG Q8H [facility] Rx#:[id number] Anesthesia Amount 300 / 300 Output: Urine 400 / 400 Estimated Blood Loss 50 / 50 Other: # Voids 0 Narrative: GENERAL: This is a well-nourished, well-developed patient, in no apparent distress laying in bed. CARDIOVASCULAR: Regular rate and rhythm without murmurs, gallops, or rubs. RESPIRATORY: Clear to auscultation. Breath sounds equal bilaterally. No wheezes , rales, or rhonchi. MUSCULOSKELETAL: Right hip bandage clean dry intact NEURO: Alert & Oriented x4 to person, place, time, situation. Moves all ext x4 Results - Labs CBC & Chem 7: 04/28/18 03:56 04/27/18 06:12 Laboratory Results - last 24 hr 04/27/18 04/27/18 04/28/18 17:04 20:02 03:56 Hgb 8.8 L D Hct 25.5 L POC Glucose 279 H 335 H 04/28/18 08:42 Hgb Hct POC Glucose 265 H Assessment and Plan - Assessment (1) Diabetes mellitus Code(s): E11.9 - Type 2 diabetes mellitus without complications Status: Chronic (2) Closed fracture of right hip Code(s): S72.001A - Fracture of unspecified part of neck of right femur, initial encounter for closed fracture Status: Acute - Plan Right intertrochanteric hip fracture status post op day #[address] Weaver Continue postoperative care, pain control, physical therapy per orthopedic surgery DM type II, chronic and uncontrolled -Accu checks with SSI -Resume home glipizide dosing Will start Levemir DVT prophylaxis: SCD to non affected leg, Lovenox Discharge Planning: Discharge to group home facility when stable. (1) Diabetes mellitus Qualifiers: Diabetes mellitus type: type 2 Diabetes mellitus retirement insulin use: without retirement use (2) Closed fracture of right hip Qualifiers: Encounter type: initial encounter Qualified Code(s): S72.001A - Fracture of unspecified part of neck of right femur, initial encounter for closed fracture
[2018-04-28] MEDS: Sod Chloride 0.9% Inj 1,000 ML IV.CONT SCH (18:36)
[2018-04-28] MEDS: glipiZIDE 5 MG Tablet PO SCH (18:42)
[2018-04-28] MEDS: Insulin Detemir Inj 1,000 UNIT/10 ML Vial SQ SCH (21:59)
[2018-04-29 05:13] LABS: Hematocrit 23.7 % (39.0-51.0); Hemoglobin 8.2 gm/dL (13.0-17.0)
--- NOTE | 2018-04-29 07:28 | P.PNOP ---
Subjective Interval history: pain under control. Physical Exam Vital signs: Vital Signs 04/28/18 08:00 04/28/18 12:00 04/28/18 16:00 Temperature 98 F 98.1 F 98.5 F Pulse Rate 96 H 96 H 93 H Respiratory Rate 18 18 18 Blood Pressure 117/56 L 106/56 L 116/57 L Pulse Oximetry 95 96 95 04/28/18 20:00 04/28/18 23:30 04/29/18 00:00 Temperature 98.5 F 98.0 F Pulse Rate 98 H 104 H Respiratory Rate 18 18 18 Blood Pressure 106/58 L 110/75 Pulse Oximetry 93 L 94 L 04/29/18 01:30 04/29/18 03:00 04/29/18 04:00 Temperature 98.8 F Pulse Rate 98 H Respiratory Rate 17 17 18 Blood Pressure 121/60 Pulse Oximetry 95 Intake & Output 04/28/18 04/29/18 04/29/18 18:59 06:59 18:59 Output Total 650 / 650 Balance -650 / -650 Weight 86.1 kg Output: Urine Amount (Catheter) 650 / 650 Indwelling Urethral Catheter 650 / 650 Narrative: in bed, nad dressing c/d/i neg homans nvi - Constitutional no acute distress - Urinary Catheter Management Indwelling Urethral Catheter Cath placed during this visit: no Results - Labs CBC & Chem 7: 04/29/18 04:48 04/27/18 06:12 Laboratory Results - last 24 hr 04/28/18 04/28/18 04/28/18 08:42 11:38 18:26 Hgb Hct POC Glucose 265 H 254 H 262 H 04/28/18 04/29/18 21:52 04:48 Hgb 8.2 L Hct 23.7 L POC Glucose 210 H Assessment and Plan - Ortho Post Op Day # 2 - Problem List (1) Closed fracture of right hip Code(s): S72.001A - Fracture of unspecified part of neck of right femur, initial encounter for closed fracture Status: Acute Qualifiers: Encounter type: initial encounter Qualified Code(s): S72.001A - Fracture of unspecified part of neck of right femur, initial encounter for closed fracture - Assessment and Plan s/p R Troch nail wbat daily dressing changes lovenox, d/c on asa 81 anemia - monitor d/c [place] d/c planning to snf - cleared by ortho f/up dr. woods 2 weeks
--- NOTE | 2018-04-29 08:35 | P.DS ---
Date of admission: 04/26/18 20:47 Primary care physician: Diogo Carr MD Anticipated date of discharge: 04/29/18 Brief History from admission: 82 y/o male with a history of DM presented to the ED after suffering a fall at home. Patient states he was walking out the back porch and fell landing on his right hip. He states the pain is a 6/10, constant throbbing pain, with radiation to his ankle, with no associated symptoms. Better with pain medication , worse with movement. Denies any chest pain or sob. DS: Diagnosis - Discharge Diagnosis (1) Closed fracture of right hip Status: Acute Diagnosis: Principal (2) Diabetes mellitus Status: Chronic Diagnosis: Secondary DS: Medications - Discharge Medications Prescriptions: hydrocodone-acetaminophen 1 tab PO Q4H PRN #12 tab PRN Reason: Pain Scale 1 To 10 DS: Summary Hospital Course: These are the medical issues addressed during this hospitalization: Right intertrochanteric hip fracture status post right IM nailing of the hip on 04/[address] Weaver Continue postoperative care, pain control, physical therapy per orthopedic surgery DM type II, chronic and uncontrolled -Accu checks with SSI -Resume home glipizide dosing Will start Levemir 10 units subcu nightly for better control of blood sugars DVT prophylaxis: SCD to non affected leg, Lovenox - Time Spent with Patient Total time spent providing and/or coordinating discharge services: Less than 30 minutes - Quality: VTE Deep Vein Thrombosis/Pulmonary Embolism Present on Admission: No Exam Vital signs: Vital Signs 04/28/18 12:00 04/28/18 16:00 04/28/18 20:00 Temperature 98.1 F 98.5 F 98.5 F Pulse Rate 96 H 93 H 98 H Respiratory Rate 18 18 18 Blood Pressure 106/56 L 116/57 L 106/58 L Pulse Oximetry 96 95 93 L 04/28/18 23:30 04/29/18 00:00 04/29/18 01:30 Temperature 98.0 F Pulse Rate 104 H Respiratory Rate 18 18 17 Blood Pressure 110/75 Pulse Oximetry 94 L 04/29/18 03:00 04/29/18 04:00 Temperature 98.8 F Pulse Rate 98 H Respiratory Rate 17 18 Blood Pressure 121/60 Pulse Oximetry 95 Intake & Output 04/28/18 04/29/18 04/29/18 18:59 06:59 18:59 Output Total 650 / 650 Balance -650 / -650 Weight 86.1 kg Output: Urine Amount (Catheter) 650 / 650 Indwelling Urethral Catheter 650 / 650 Narrative: GENERAL: This is a well-nourished, well-developed patient, in no apparent distress. CARDIOVASCULAR: Regular rate and rhythm without murmurs, gallops, or rubs. RESPIRATORY: Clear to auscultation. Breath sounds equal bilaterally. No wheezes , rales, or rhonchi. GASTROINTESTINAL: Abdomen soft, non-tender, nondistended. Normal active bowel sounds MUSCULOSKELETAL: Right hip bandage clean dry intact NEURO: Alert & Oriented x4 to person, place, time, situation. Moves all ext x4 Results Procedures completed during hospitalization: 04/27 right hip fracture status post IM nailing Labs on day of discharge: Labs from last 24 hours 04/29/18 04/28/18 04/28/18 04:48 21:52 18:26 Hgb 8.2 L Hct 23.7 L POC Glucose 210 H 262 H 04/28/18 04/28/18 11:38 08:42 Hgb Hct POC Glucose 254 H 265 H - Impressions ITS Impressions Chest X-Ray 04/26/18 20:27 CONCLUSION: 1. 7 mm right lower lobe pulmonary nodule. An outpatient follow-up CT of the thorax without IV contrast is suggested to further assess. 2. Clear lungs otherwise. Hip X-Ray 04/27/18 00:00 CONCLUSION: Fluoroscopic images during placement of trochanter nail right proximal femur/ hip fixating an intertrochanteric fracture Discharge Plan - Discharge Disposition Patient Disposition: Discharge to SNF - Discharge Condition Condition: Good - Discharge Order Discharge Orders: Discharge Order (Routine); Ordered 04/29/18 Ordered By: Maggy Salvador - Discharge Details Anticipated Discharge Date: 04/29/18 - Physicians Team Primary Care Provider: Diogo Carr Attending Provider: Maggy Salvador Other Providers: Bryan Weaver MD ; [facility],[place]
[2018-04-29] MEDS: Senna/Docusate Sodium 8.6/50 MG Tablet PO SCH (08:48)
[2018-04-29] MEDS: glipiZIDE 5 MG Tablet PO SCH (08:48)
[2018-04-29] MEDS: Enoxaparin Inj 40 MG/0.4 ML Syringe SQ SCH (08:48)
[2018-04-29] MEDS: Multivitamin/Minerals Therapeutic Tablet PO SCH (08:48)
[2018-04-29] MEDS: Folic Acid 1 MG Tablet PO SCH (08:48)
[2018-04-29] MEDS: Insulin NovoLOG Aspart Correctional Sugar Inj SQ SCH (22:19)
[2018-04-29] MEDS: Insulin Detemir Inj 1,000 UNIT/10 ML Vial SQ SCH (22:20)
--- NOTE | 2018-04-29 23:17 | P.PN ---
Subjective Interval history: not seen Physical Exam Vital signs: Vital Signs 04/28/18 23:30 04/29/18 00:00 04/29/18 01:30 Temperature 98.0 F Pulse Rate 104 H Respiratory Rate 18 18 17 Blood Pressure 110/75 Pulse Oximetry 94 L 04/29/18 03:00 04/29/18 04:00 04/29/18 08:00 Temperature 98.8 F 98.3 F Pulse Rate 98 H 92 H Respiratory Rate 17 18 18 Blood Pressure 121/60 100/55 L Pulse Oximetry 95 97 04/29/18 12:00 04/29/18 16:00 04/29/18 19:00 Temperature 98.2 F 98.4 F Pulse Rate 90 94 H Respiratory Rate 18 18 18 Blood Pressure 98/52 L 116/60 Pulse Oximetry 97 95 04/29/18 20:00 Temperature 98.4 F Pulse Rate 99 H Respiratory Rate 18 Blood Pressure 125/60 Pulse Oximetry 95 Intake & Output 04/29/18 04/29/18 04/30/18 06:59 18:59 06:59 Output Total 150 / 150 Balance -150 / -150 Weight 86.1 kg Output: Urine 150 / 150 Other: Date of Last Bowel Movement 04/25/18 - Urinary Catheter Management Indwelling Urethral Catheter Cath placed during this visit: no Results - Labs CBC & Chem 7: 04/29/18 04:48 04/27/18 06:12 Laboratory Results - last 24 hr 04/29/18 04/29/18 04/29/18 04:48 08:30 13:01 Hgb 8.2 L Hct 23.7 L POC Glucose 136 H 217 H 04/29/18 22:11 Hgb Hct POC Glucose 254 H - Imaging ITS Impressions Chest X-Ray 04/26/18 20:27 CONCLUSION: 1. 7 mm right lower lobe pulmonary nodule. An outpatient follow-up CT of the thorax without IV contrast is suggested to further assess. 2. Clear lungs otherwise. Hip X-Ray 04/27/18 00:00 CONCLUSION: Fluoroscopic images during placement of trochanter nail right proximal femur/ hip fixating an intertrochanteric fracture - Procedures 04/27 right hip fracture status post IM nailing Assessment and Plan - Assessment (1) Closed fracture of right hip Code(s): S72.001A - Fracture of unspecified part of neck of right femur, initial encounter for closed fracture Status: Acute (2) Diabetes mellitus Code(s): E11.9 - Type 2 diabetes mellitus without complications Status: Chronic - Plan These are the medical issues addressed during this hospitalization: Right intertrochanteric hip fracture status post right IM nailing of the hip on 04/[address] Weaver Continue postoperative care, pain control, physical therapy per orthopedic surgery DM type II, chronic and uncontrolled -Accu checks with SSI -Resume home glipizide dosing Will start Levemir 10 units subcu nightly for better control of blood sugars CKD stage 3. Nonoliguric. Avoid nephrotoxins. Anemia 2/2 acute blood loss. Monitor RLL nodule. O/p f/u with chest CT DVT prophylaxis: SCD to non affected leg, Lovenox (1) Closed fracture of right hip Qualifiers: Encounter type: initial encounter Qualified Code(s): S72.001A - Fracture of unspecified part of neck of right femur, initial encounter for closed fracture (2) Diabetes mellitus Qualifiers: Diabetes mellitus type: type 2 Diabetes mellitus usp insulin use: without terminal makeup operator use
--- NOTE | 2018-04-30 08:09 | P.PNOP ---
Subjective Interval history: Pt resting comfortably. No other complaints Physical Exam Vital signs: Vital Signs 04/29/18 12:00 04/29/18 16:00 04/29/18 19:00 Temperature 98.2 F 98.4 F Pulse Rate 90 94 H Respiratory Rate 18 Blood Pressure 98/52 L 116/60 Pulse Oximetry 97 95 04/29/18 20:00 04/30/18 00:00 04/30/18 00:29 Temperature 98.4 F 98.6 F Pulse Rate 99 H 102 H Respiratory Rate 18 Blood Pressure 125/60 120/61 Pulse Oximetry 95 95 Intake & Output 04/29/18 04/30/18 04/30/18 18:59 06:59 18:59 Output Total 150 / 150 Balance -150 / -150 Weight 86.1 kg Output: Urine 150 / 150 Other: # Voids 2 Date of Last Bowel Movement 04/25/18 04/27/18 Narrative: in bed, nad dressing c/d/i neg [place]in[place] nvi - Urinary Catheter Management Indwelling Urethral Catheter Cath placed during this visit: no Results - Labs CBC & Chem 7: 04/29/18 04:48 04/27/18 06:12 Laboratory Results - last 24 hr 04/29/18 04/29/18 04/29/18 08:30 13:01 22:11 POC Glucose 136 H 217 H 254 H - Procedures 04/27 right hip fracture status post IM nailing Assessment and Plan - Problem List (1) Closed fracture of right hip Code(s): S72.001A - Fracture of unspecified part of neck of right femur, initial encounter for closed fracture Status: Acute Qualifiers: Encounter type: initial encounter Qualified Code(s): S72.001A - Fracture of unspecified part of neck of right femur, initial encounter for closed fracture - Assessment and Plan s/p R Troch nail wbat daily dressing changes lovenox, d/c on asa 81 anemia - monitor d/c pollard d/c planning to snf - cleared by ortho f/up dr. woods 2 weeks
[2018-04-30] MEDS: Folic Acid 1 MG Tablet PO SCH (08:22)
[2018-04-30] MEDS: Senna/Docusate Sodium 8.6/50 MG Tablet PO SCH (08:22)
[2018-04-30] MEDS: Multivitamin/Minerals Therapeutic Tablet PO SCH (08:22)
[2018-04-30] MEDS: Enoxaparin Inj 40 MG/0.4 ML Syringe SQ SCH (08:22)
== END 2018-04-30 12:00 ==
LOC: NEPC 19:01 → NEDA 20:47 → N06 22:53
PROVIDERS: ADMIT Hospitalist; ATTEND Hospitalist
PROC: ORIFFEM (2018-04-27 08:10)

== ENCOUNTER 2018-05-04 07:16 | Inpatient (IN) ==
[2018-05-04] MEDS ORDERED: Acetaminophen 325 MG Tablet PO ONE (07:47)
[2018-05-04] MEDS ORDERED: Sod Chloride 0.9% Inj 1,000 ML IV.SIG ONE (07:47)
--- NOTE | 2018-05-04 07:58 | ED ---
HPI General Chief Complaint: Recheck/Abnormal Lab/Rx Stated Complaint: Poss Diabetic/Evac Time Seen by Provider: 05/04/18 07:39 Source: patient and EMS Mode of arrival: EMS Limitations: altered mental status History of Present Illness HPI narrative: The patient is a 82-year-old male who presents to the emergency department via EMS for hyperglycemia from a correction. The patient recently had right hip surgery and was just released to a correction on May 03. The patient apparently had elevated blood sugars at the correction with low blood pressure was sent to the emergency department via EMS for evaluation. The patient is a somewhat limited historian, he is able to tell me recently had right hip surgery but thinks the year is 1986. He denies any chest pain, shortness of breath, nausea, vomiting, or abdominal pain. However, EMS noted that the patient's O2 saturation on room air was in the 80s and required oxygen via nonrebreather prior to arrival. The patient does have a history of COPD and is normally on oxygen via nasal cannula at 4 L. The patient denies any history of COPD however. EMS stated the patient was afebrile. The patient is a somewhat limited historian. The patient apparently received NovoLog per EMS at the correction prior to arrival, however, the amount of NovoLog is unknown. MD complaint: altered mental status Onset (ago): hour(s) Related Data Home Medications Medication Instructions Recorded Confirmed glipizide 5 mg PO BID 04/26/18 05/04/18 acetaminophen 650 mg PO Q4H PRN 05/04/18 05/04/18 aspirin 81 mg PO BID 05/04/18 05/04/18 hydrocodone-acetaminophen 1 tab PO Q6H PRN 05/04/18 05/04/18 insulin aspart U-100 [Novolog 20 unit SUB-Q ONCE 05/04/18 05/04/18 U-100 Insulin aspart] magnesium hydroxide [Milk of 30 ml PO DAILY PRN 05/04/18 05/04/18 Magnesia] sennosides 17.2 mg PO DAILY 05/04/18 05/04/18 Previous Rx's Medication Instructions Recorded enoxaparin [Lovenox] 40 mg SUB-Q DAILY #14 ml 04/29/18 insulin aspart U-100 [Novolog See Protocol SUB-Q ACHS #10 ml 04/29/18 U-100 Insulin aspart] insulin detemir U-100 [Levemir 10 unit SUB-Q HS #14 ml 04/29/18 U-100 Insulin] tamsulosin 0.4 mg PO DAILY #30 cap 04/29/18 Allergies Allergy/AdvReac Type Severity Reaction Status Date / Time No Known Allergies Allergy Unverified 05/04/18 09:31 Review of Systems ROS Unobtainable unobtainable due to mental condition Except as stated in HPI: all other systems reviewed are negative Cardiovascular Reports dyspnea (History of COPD requiring oxygen via nasal cannula 4 L) Respiratory Reports dyspnea Gastrointestinal Denies abdominal pain, Denies nausea and Denies vomiting Musculoskeletal Reports limited range of motion (Recent right hip for surgery) Neurologic Reports other [facility] Family History Family History Father Prostate cancer Social History Social History Substance History: No History of Abuse Second Hand Smoke Exposure: No Smoking Status: Former smoker Tobacco Type: Cigarettes Cigarettes Per Day: 2 How Often Do You Have a Drink Containing Alcohol: Never Recent Travel in [facility] within the Last 8 Weeks: No Recent Out of Country Travel within the Last 8 Weeks: No Exam Narrative Exam Narrative: GENERAL: Awake, alert, 82-year-old male who appears his stated age and appears to have mild respiratory distress. SKIN: Focused skin assessment warm/dry. HEAD: Atraumatic. Normocephalic. EYES: No injection or drainage. ENT: No nasal bleeding or discharge. Dry mucous membranes. NECK: Trachea midline. No JVD. CARDIOVASCULAR: Regular, tachycardic with a heart rate of 110. RESPIRATORY: Tachypnea with a respiratory rate of 22. Some audible wheezes bilaterally. GASTROINTESTINAL: Abdomen slightly distended, nontender. MUSCULOSKELETAL: Dressing in place over the right lateral hip. Ecchymosis noted over the right flank and near the right hip. NEUROLOGICAL: Awake and alert. No obvious cranial nerve deficits. Motor grossly within normal limits. Normal speech. Patient is oriented to person, however, thinks the year is 1986. He was able to tell me he recently had right hip surgery, but thought the month was March and that he was located in [place]. Back: Ecchymosis noted over the right flank and right hip. PSYCHIATRIC: Appropriate mood and affect; insight and judgment normal. Course Consultations Consultation #1: The on-call securities underwriter was paged at 10:24 AM for admission. I discussed the patient with Dr. Egan at 10:54 AM who agrees with admission. He requested I discussed the patient with the on-call investigative agent secondary to the elevated troponin and BNP. Time: 10:24 Consultation #2: To the on-call [employer] investigative agent, Dr. Douglass, 10:54 AM in regards to troponin of 5 and BNP of greater than 2300. Call was placed per the securities underwriter request. Time: 10:54 Consultation #3: A call was placed to the patient's orthopedic surgeon, Dr. Bryan Weaver, at 10:55 AM to notify him of the patient's admission as he is less than 30 days postop. I discussed the patient with Dr. Weaver who is aware of the patient's admission to the intensive care unit. Time: 10:55 Initial Documented Vital Signs Temperature 100.2 F H 05/04/18 07:41 Pulse Rate 110 H 05/04/18 07:41 Respiratory Rate 22 05/04/18 07:41 Blood Pressure 88/55 L 05/04/18 07:41 Pulse Oximetry 91 L 05/04/18 07:41 Last Documented Vital Signs Temperature 100.2 F H 05/04/18 07:41 Pulse Rate 110 H 05/04/18 10:42 Respiratory Rate 26 H 05/04/18 10:42 Blood Pressure 88/59 L 05/04/18 10:42 Pulse Oximetry 94 L 05/04/18 10:42 Procedures Intubation Time Out Performed: Yes Sedative: etomidate Mg Given: 20 Paralytic: rocuronium Mg Given: 75 Laryngoscope: Bryan ET Tube Size: 8 ET Tube Uncuffed: No Tube Secured Depth (cm): 24 Intubation Complications: none Critical Care Time Total Critical Care Time: 45 Attestation: Aggregate critical care time was 45 minutes. Time to perform other separately billable procedures was not included in the critical care time. My time did not include minutes spent treating any other patients simultaneously or on activities that did not directly contribute to the patient's treatment. The services I provided to this patient were to treat and/or prevent clinically significant deterioration that could result in: Anoxia, hypoxia, aspiration, pulmonary edema, cardiogenic shock, septic shock, arrhythmia, . I provided critical care services requiring my management, as noted below: Chart data review, documentation time, medication orders and management, vital sign assessments/reviewing monitor data, ordering and reviewing lab tests, ordering and interpreting/reviewing x-rays and diagnostic studies, care of the patient and discussion of the patient with the admitting physicians. Medical Decision Making MDM Narrative Medical decision making narrative: IV was established, labs are drawn and sent, and the patient was placed on cardiac telemetry monitoring and continuous pulse oximetry monitoring. EKG was ordered and interpreted. Chest x-ray was obtained. Blood cultures and lactic acid were sent to lab. The patient was administer 1 L of IV fluids. The patient had an episode of nausea and vomiting after administration of Tylenol. The patient was then administered Reglan. The patient's oxygenation levels fell into the mid 80s, therefore, he was placed back on a nonrebreather and an ABG was obtained. I reviewed the patient' s paperwork from the correction, there is no evidence of a DNR. Therefore, nursing staff called the correction to evaluate for a DNR or advance directives. The patient's breathing did improve on a nonrebreather, oxygen saturation, up into the 90s, patient was more comfortable. Troponin was elevated, greater than 5. The patient was administered aspirin 300 mg rectally. The patient appears to have an end STEMI, possibly secondary to sepsis and/or acute congestive heart failure. The patient's BUN was elevated, creatinine was elevated, patient appears to have prerenal azotemia and dehydration. However, the patient was only administered 1 L of IV fluids secondary to his current pulmonary status. Patient was more comfortable, however, if he does decline he may require intubation. Therefore, the patient will be admitted to the intensive care unit. The patient's BNP was elevated greater than 2300, may have acute congestive heart failure and pulmonary edema. The patient's systolic blood pressures in the 90s, diastolic in the 60s, with a map just over 65, therefore, no further IV fluids were administered. The patient will require echocardiogram and cardiology evaluation. If he continues to decline he may benefit from dobutamine and gentle diuresis as he is already slightly hypertensive. The on-call securities underwriter was paged for admission at 10:23 AM. I discussed the patient with Dr. Egan at 10:54 AM who request cardiology consultation from the emergency department for elevated troponin and BNP. Therefore, a call was placed to the on-call [employer] investigative agent, Dr. Douglass, 10: 56 AM. A call was also placed to the patient's orthopedic surgeon, Dr. Bryan Weaver, as the patient is less than 30 days postop. The patient was reassessed at 11:10 AM, his respiratory rate had increased, he was more lethargic, and his blood pressure had dropped to a systolic of 80. The patient would open his eyes, but appearede to be in acute respiratory distress. Therefore, the patient was intubated using rocuronium and etomidate. Differential Diagnosis Differential Diagnosis: Differential diagnosis includes pneumonia, COPD exacerbation, hyperglycemia, sepsis, UTI, urosepsis, pulmonary embolism, dehydration, electrolyte abnormality. Medical Records Medical records reviewed: Yes I reviewed the patient's medical records. The patient's right hip was repaired by Dr. Bryan Weaver on April 27. Lab Data Result diagrams: 05/04/18 08:30 05/04/18 07:40 Lab Results 05/04/18 05/04/18 05/04/18 Range/Units 07:34 07:40 07:40 WBC (4.0-11.0) th/mm3 RBC (4.50-5.90) mil/mm3 Hgb (13.0-17.0) gm/dL Hct (39.0-51.0) % MCV (80.0-100.0) fL MCH (27.0-34.0) pg MCHC (32.0-36.0) % RDW (11.6-17.2) % Plt Count (150-450) th/mm3 MPV (7.0-11.0) fL Neut % (Auto) (16.0-70.0) % Lymph % (Auto) (9.0-44.0) % Erie % (Auto) (0.0-8.0) % Eos % (Auto) (0.0-4.0) % Baso % (Auto) (0.0-2.0) % Neut # (Auto) (1.8-7.7) th/mm3 Lymph # (Auto) (1.0-4.8) th/mm3 Erie # (Auto) (0.0-0.9) th/mm3 Eos # (Auto) (0.0-0.4) th/mm3 Baso # (Auto) (0.0-0.2) th/mm3 WBC Differential Differential Comment PT (9.8-11.6) sec INR Ratio APTT (24.3-30.1) sec Puncture Site Patient Temperature O2 Saturation (90-100) % ABG pH (7.380-7.420) ABG pCO2 (38-42) mmHg ABG pO2 (61-120) mmHg ABG HCO3 (22-26) mmol/L ABG O2 Content (12.0-20.0) Vol % ABG Base Excess (-2-2) mmol/L ABG Methemoglobin (0-2) % Yannick Test Hemoglobin (12.0-16.0) G/DL Carboxyhemoglobin (0-4) % O2 Delivery Device Liter Flow L/M Critical Value Sodium 136 (136-145) meq/L Potassium 5.1 (3.5-5.1) meq/L Chloride 106 (98-107) meq/L Carbon Dioxide 17.2 L (21.0-32.0) meq/L Anion Gap 13 (5-15) meq/L BUN 77 H (7-18) mg/dL Creatinine 2.99 H (0.60-1.30) mg/dL Estimated GFR 20 L (>89) mL/min POC Glucose 348 H (68-110) mg/dl Random Glucose 341 H (74-106) mg/dL Lactic Acid (0.4-2.0) mmol/L Calcium 8.4 L (8.5-10.1) mg/dL Total Bilirubin 0.9 (0.2-1.0) mg/dL AST 92 H (15-37) U/L ALT 30 (12-78) U/L Alkaline Phosphatase 98 (45-117) U/L Total Creatine Kinase 596 H (39-308) U/L CK-MB (CK-2) 21.3 H (0.5-3.6) ng/mL CK-MB (CK-2) % 3.6 (0.0-4.0) % Troponin I 5.01 H* (0.02-0.05) ng/mL B-Natriuretic Peptide (0-100) pg/mL Total Protein 5.8 L (6.4-8.2) g/dL Albumin 2.1 L (3.4-5.0) g/dL 07/11/18 07/11/18 07/11/18 Range/Units 07:40 08:30 08:30 WBC 14.6 H (4.0-11.0) th/mm3 RBC 2.53 L (4.50-5.90) mil/mm3 Hgb 7.9 L (13.0-17.0) gm/dL Hct 23.9 L (39.0-51.0) % MCV 94.4 (80.0-100.0) fL MCH 31.2 (27.0-34.0) pg MCHC 33.1 (32.0-36.0) % RDW 13.0 (11.6-17.2) % Plt Count 298 (150-450) th/mm3 MPV 7.9 (7.0-11.0) fL Neut % (Auto) 85.0 H (16.0-70.0) % Lymph % (Auto) 6.6 L (9.0-44.0) % Erie % (Auto) 8.0 (0.0-8.0) % Eos % (Auto) 0.1 (0.0-4.0) % Baso % (Auto) 0.3 (0.0-2.0) % Neut # (Auto) 12.4 H (1.8-7.7) th/mm3 Lymph # (Auto) 1.0 (1.0-4.8) th/mm3 Erie # (Auto) 1.2 H (0.0-0.9) th/mm3 Eos # (Auto) 0.0 (0.0-0.4) th/mm3 Baso # (Auto) 0.0 (0.0-0.2) th/mm3 WBC Differential . Differential Comment Auto diff final PT 10.7 (9.8-11.6) sec INR 1.1 Ratio APTT 24.3 (24.3-30.1) sec Puncture Site Patient Temperature O2 Saturation (90-100) % ABG pH (7.380-7.420) ABG pCO2 (38-42) mmHg ABG pO2 (61-120) mmHg ABG HCO3 (22-26) mmol/L ABG O2 Content (12.0-20.0) Vol % ABG Base Excess (-2-2) mmol/L ABG Methemoglobin (0-2) % Yannick Test Hemoglobin (12.0-16.0) G/DL Carboxyhemoglobin (0-4) % O2 Delivery Device Liter Flow L/M Critical Value Sodium (136-145) meq/L Potassium (3.5-5.1) meq/L Chloride (98-107) meq/L Carbon Dioxide (21.0-32.0) meq/L Anion Gap (5-15) meq/L BUN (7-18) mg/dL Creatinine (0.60-1.30) mg/dL Estimated GFR (>89) mL/min POC Glucose (68-110) mg/dl Random Glucose (74-106) mg/dL Lactic Acid 2.7 H (0.4-2.0) mmol/L Calcium (8.5-10.1) mg/dL Total Bilirubin (0.2-1.0) mg/dL AST (15-37) U/L ALT (12-78) U/L Alkaline Phosphatase (45-117) U/L Total Creatine Kinase (39-308) U/L CK-MB (CK-2) (0.5-3.6) ng/mL CK-MB (CK-2) % (0.0-4.0) % Troponin I (0.02-0.05) ng/mL B-Natriuretic Peptide (0-100) pg/mL Total Protein (6.4-8.2) g/dL Albumin (3.4-5.0) g/dL 05/04/18 05/04/18 05/04/18 Range/Units 08:30 08:48 10:31 WBC (4.0-11.0) th/mm3 RBC (4.50-5.90) mil/mm3 Hgb (13.0-17.0) gm/dL Hct (39.0-51.0) % MCV (80.0-100.0) fL MCH (27.0-34.0) pg MCHC (32.0-36.0) % RDW (11.6-17.2) % Plt Count (150-450) th/mm3 MPV (7.0-11.0) fL Neut % (Auto) (16.0-70.0) % Lymph % (Auto) (9.0-44.0) % Erie % (Auto) (0.0-8.0) % Eos % (Auto) (0.0-4.0) % Baso % (Auto) (0.0-2.0) % Neut # (Auto) (1.8-7.7) th/mm3 Lymph # (Auto) (1.0-4.8) th/mm3 Erie # (Auto) (0.0-0.9) th/mm3 Eos # (Auto) (0.0-0.4) th/mm3 Baso # (Auto) (0.0-0.2) th/mm3 WBC Differential Differential Comment PT (9.8-11.6) sec INR Ratio APTT (24.3-30.1) sec Puncture Site Right radial Patient Temperature 98.6 O2 Saturation 88 L* (90-100) % ABG pH 7.29 L* (7.380-7.420) ABG pCO2 33 L (38-42) mmHg ABG pO2 68 (61-120) mmHg ABG HCO3 15 L* (22-26) mmol/L ABG O2 Content 10.2 L (12.0-20.0) Vol % ABG Base Excess -10.2 L (-2-2) mmol/L ABG Methemoglobin 0.8 (0-2) % Yannick Test Present Hemoglobin 8.2 L (12.0-16.0) G/DL Carboxyhemoglobin 1.9 (0-4) % O2 Delivery Device Simple mask Liter Flow 6.00 L/M Critical Value Yes Sodium (136-145) meq/L Potassium (3.5-5.1) meq/L Chloride (98-107) meq/L Carbon Dioxide (21.0-32.0) meq/L Anion Gap (5-15) meq/L BUN (7-18) mg/dL Creatinine (0.60-1.30) mg/dL Estimated GFR (>89) mL/min POC Glucose 341 H (68-110) mg/dl Random Glucose (74-106) mg/dL Lactic Acid (0.4-2.0) mmol/L Calcium (8.5-10.1) mg/dL Total Bilirubin (0.2-1.0) mg/dL AST (15-37) U/L ALT (12-78) U/L Alkaline Phosphatase (45-117) U/L Total Creatine Kinase (39-308) U/L CK-MB (CK-2) (0.5-3.6) ng/mL CK-MB (CK-2) % (0.0-4.0) % Troponin I (0.02-0.05) ng/mL B-Natriuretic Peptide 2359 H (0-100) pg/mL Total Protein (6.4-8.2) g/dL Albumin (3.4-5.0) g/dL Imaging Data Radiologist's impression: ITS Impressions Chest X-Ray 05/04/18 07:48 CONCLUSION: Marked deterioration appearance of the chest from comparison study. Significant perihilar infiltrate evident. ECG Data EKG Prior to Arrival: No Attestation: I personally reviewed and interpreted this ECG as follows: Interpretation: EKG reveals sinus tachycardia with a heart rate of 109. Intraventricular conduction delay with QRS of 135 ms. Q-wave noted in lead V1 and V2. Discharge Plan Discharge Disposition Patient Disposition: 30 Still Patient Discharge Condition Condition: Serious Discharge Details Diagnosis: Congestive heart failure, Acute hyperglycemia, Acute renal failure (ARF) Physicians Team ED Provider: Deo Shrestha Primary Care Provider: Diogo Carr Attending Provider: Nessa Egan Other Providers: Get Douglass Status ED Status: Admitted Patient
[2018-05-04] MEDS ORDERED: Azithromycin Inj 500 MG in Sodium Chlor 0.9% Inj 250 ML IV.SIG ONE (08:25)
[2018-05-04 08:36] LABS: Alkaline Phosphatase 98 U/L (45-117); Total Protein 5.8 g/dL (6.4-8.2)
[2018-05-04 08:50] LABS: Alanine Aminotransferase 30 U/L (12-78); Albumin 2.1 g/dL (3.4-5.0); Anion Gap 13 meq/L (5-15); Blood Urea Nitrogen 77 mg/dL (7-18); Calcium 8.4 mg/dL (8.5-10.1); Carbon Dioxide 17.2 meq/L (21.0-32.0); Chloride 106 meq/L (98-107); Glomerular Filtration Rate 20 mL/min (>89); Glucose,Random 341 mg/dL (74-106); Sodium 136 meq/L (136-145)
[2018-05-04 08:51] LABS: Aspartate Aminotransferase 92 U/L (15-37); Potassium 5.1 meq/L (3.5-5.1)
[2018-05-04 08:53] LABS: ABG Base Excess -10.2 mmol/L (-2-2); ABG PCO2 33 mmHg (38-42); ABG PO2 68 mmHg (61-120)
[2018-05-04 08:58] LABS: Baso % (Auto) 0.3 % (0.0-2.0); Eos % (Auto) 0.1 % (0.0-4.0); Hematocrit 23.9 % (39.0-51.0); Hemoglobin 7.9 gm/dL (13.0-17.0); Lymph % (Auto) 6.6 % (9.0-44.0); Mean Corpuscular HGB Conc 33.1 % (32.0-36.0); Mean Corpuscular Hemoglobin 31.2 pg (27.0-34.0); Mean Corpuscular Volume 94.4 fL (80.0-100.0); Mean Platelet Volume 7.9 fL (7.0-11.0); Mono # (Auto) 1.2 th/mm3 (0.0-0.9); Neut # (Auto) 12.4 th/mm3 (1.8-7.7); Platelet Count 298 th/mm3 (150-450); Red Blood Count 2.53 mil/mm3 (4.50-5.90); White Blood Count 14.6 th/mm3 (4.0-11.0)
[2018-05-04 09:03] LABS: CKMB Percent 3.6 % (0.0-4.0); Creatine Kinase MB 21.3 ng/mL (0.5-3.6)
[2018-05-04 09:04] LABS: Activated Partial Thrombo Time 24.3 sec (24.3-30.1); INR 1.1 Ratio; Prothrombin Time 10.7 sec (9.8-11.6)
[2018-05-04 09:06] LABS: Troponin I 5.01 ng/mL (0.02-0.05)
[2018-05-04] MEDS ORDERED: Aspirin 300 MG Supp RECTAL ONE (09:07)
--- NOTE | 2018-05-04 09:08 | XR ---
EXAM DATE: 05/04/2018 8:36 AM EDT AGE/SEX: 82 years / Male INDICATIONS: Congestion, shortness of breath, fever. CLINICAL DATA: This is the patient's initial encounter. Patient reports that signs and symptoms have been present for 2 days and indicates a pain score of 0/10. MEDICAL/SURGICAL HISTORY: Congestive heart failure. . Total right hip. COMPARISON: C, CHEST 1V SINGLE AP, 04/26/2018. . FINDINGS: Perihilar interstitial changes are present with normal heart size. Considerations would include infla mmatory process and cardiac interstitial edema. There is no pneumothorax. The portion of the bony ske leton visualized is unremarkable. CONCLUSION: Marked deterioration appearance of the chest from comparison study. Significant perihilar infiltrate evident. Electronically signed by: Chao Smith MD 05/04/2018 9:07 AM EDT
[2018-05-04] MEDS ORDERED: Heparin Drip 25,000 UNIT/250 ML BAG IV.CONT PRN (11:00)
[2018-05-04] MEDS ORDERED: Etomidate Inj 20 MG/10 ML Ampul IV.PUSH ONE (11:14)
[2018-05-04] MEDS ORDERED: Norepinephrine Inj 4 MG/4 ML Ampul ONE (11:23)
[2018-05-04] MEDS ORDERED: fentaNYL 10 mcg/mL Premix Drip 2,500 MCG/250 ML BAG ONE (11:37)
[2018-05-04] MEDS ORDERED: Midazolam 50 MG/50 ML Inj 50 MG/50 ML BAG IV.CONT ONE (11:37)
--- NOTE | 2018-05-04 11:51 | P.PCN ---
Date of procedure: 05/04/18 Pre-op diagnosis: Cardiogenic shock Post-op diagnosis: same Procedure: CONSENT: Emergency procedure due to hypotension, cardiogenic shock PROCEDURE SUMMARY: Emergency central line placement for cardiogenic shock and administration of vasopressors. Hands were washed immediately prior to the procedure. I wore a surgical cap, mask with protective eyewear, full gown and sterile gloves throughout the procedure. The patient was placed in Trendelenburg position. LEFTchest region was prepped using chlorhexidine scrub and draped in sterile fashion using a three quarter sheet drape and sterile towels. The introducer needle was inserted into the left subclavian vein. Venous blood was withdrawn. The syringe was removed and a guidewire was advanced into the introducer needle , following which introducer needle was exchanged for a dilator over the guidewire. After appropriate dilation was obtained, the dilator was exchanged over the wire for a triple lumen, 7F, antibiotic coated central venous catheter. The wire was removed and the catheter was sutured in place at 18 cm. A sterile central line dressing was placed over the catheter at the insertion site. The patient tolerated the procedure without any hemodynamic compromise. At time of procedure completion, all ports aspirated and flushed properly. Post- procedure chest x-ray is pending at this time. Estimated blood loss is <1ml. Anesthesia: regional Surgeon: Nessa Egan Estimated blood loss (mL): 1 Pathology: none sent Condition: critical Disposition: ICU
[2018-05-04 11:58] LABS: Amorphous Sediment,Urine Rare /hpf; Bacteria,Urine Rare /hpf; Bilirubin,Urine Negative (Negative); Clarity,Urine Hazy (Clear); Color,Urine Amber (Yellw/Straw); Glucose,Urine (UA) 50 mg/dL (Negative); Hyaline Casts,Urine 25 /lpf (0-3); Leukocyte Esterase,Urine Negative (Negative); Mucus,Urine Few /lpf (Occasional); Nitrite,Urine Negative (Negative); Squamous Epithelial Cell,Urine <1 /hpf (0-5)
[2018-05-04] MEDS ORDERED: Albumin Human 25% Inj 100 ML IV.SIG SCH (12:07)
--- NOTE | 2018-05-04 12:11 | P.HPCC ---
History of Present Illness Primary Care Physician: Diogo Carr MD Chief Complaint: Shortness of breath, lethargic History of Present Illness: The patient is a 82-year-old male with past medical history significant for COPD on home oxygen, type 2 diabetes, chronic kidney disease ( history is limited by the fact that patient is oriented 1 and in severe respiratory distress) who was discharged yesterday from [facility] after right hip replacement by Dr. Weaver. He was brought to the emergency department today from the [facility] for hyperglycemia, worsening shortness of breath and hypotension. EMS noted that the patient's O2 saturation on room air was in the 80s and placed on nonrebreather. In the ED patient was hypotensive and was administered 1 L of IV fluids. ABG showed 7.29/33/68, BE -10 and this was on simple mask. Lab work showed Troponin was elevated, at 5, BNP at 2599. The patient was administered aspirin 300 mg rectally. Chest x-ray showed pulmonary edema. The patient's BUN/creatinine was elevated, at 77/2.9. Patient has chronic kidney disease with baseline creatinine 1.5-1.7 per previous records. Patient also received broad-spectrum antibiotics in the ED. After reviewing the troponin and EKG, I have started the patient on IV heparin will continue aspirin, consult cardiology Dr. Douglass, due to hypotension avoid beta blockers and YUNG inhibitors at this time. I went down to the ED to evaluate the patient, on my arrival patient was in acute respiratory distress and hypoxemic 100% nonrebreather, Dr. Shrestha in the ED was getting ready to intubate the patient. Apparently patient deteriorated over the last 15 minutes, possibly aspirated. I examined the patient prior to intubation, he is quite tachypneic with bilateral rales and wheezes. It appears like congestive heart failure/pulmonary edema has worsened. Patient currently has NSTEMI and severe pulmonary edema. Patient is hypotensive with systolic blood pressure in the 80s. I have ordered stat Levophed to be started at 5 mcg/min and titrated up as needed to keep map above 65. Dr. Shrestha intubated and placed patient on vent. I have placed vent orders, due to hypoxia use PEEP 10. I will do the bedside echo after the patient arrived in ICU. If the EF is low we will attempt low-dose dobutamine. Ordered to receive IV heparin, continued aspirin, IV Lasix 40 mg every 12 hours along with IV albumin. I will also place an arterial line once the patient is ICU to start hemodynamic monitoring, Flowtrack monitoring for cardiac output cardiac index. For probable sepsis we will continue broad-spectrum antibiotics Zosyn and single dose of vancomycin - Diagnosis (1) Acute on chronic respiratory failure with hypoxemia (2) NSTEMI (non-ST elevated myocardial infarction) (3) Pulmonary edema (4) Severe sepsis (5) Cardiogenic shock (6) Acute on chronic kidney failure (7) Lactic acidosis (8) COPD exacerbation Inpatient Certification: I certify that the inpatient services were ordered in accordance with Medicare regulations governing the order. This includes certification that hospital inpatient services are reasonable and necessary and in the case of services not specified as inpatient-only under 42 CFR 419.22(n), that they are appropriately provided as inpatient services in accordance to with the 2-midnight benchmark under 43 CFR 412.3(e) Estimated Total Length of Stay (Days): 5 Plans for Post Hospital Care: Not yet determined Review of Systems unobtainable due to endotracheal tube PMFSH - History History Provided By: Technology Resource Teacher / EMT - Medical / Surgical Hx Neg / Unobtainable Medical Problems Denied: Unable to Obtain - Medical History Medical History: Medical History (Last Reviewed 04/27/18 @ 09:14 by Craig Smith) Diabetes - Surgical History Surgical History: Surgical History (Last Reviewed 04/27/18 @ 09:14 by Craig Smith) Amputated toe of left foot - Family History Family History: Family History (Last Updated 04/27/18 @ 00:44 by ОЛЕГ Ding) Father Prostate cancer - Tobacco History Second Hand Smoke Exposure: No Smoking Status: Former smoker Tobacco Type: Cigarettes Cigarettes Per Day: 2 - Alcohol History How Often Do You Have a Drink Containing Alcohol: Never - Substance Use History Substance History: No History of Abuse - Travel History Recent Travel in the [place] Within the Last 8 Weeks: No Recent Travel Out of the Country Within the Last 8 Weeks: No - Immunization History Tetanus Immunization: Unsure Hx Influenza Vaccine This Season: Yes Medications and Allergies Active Medications: Active Medications Al Hydroxide/Mg Hydroxide (Milk Of Jazmine Liq) 30 ml PO Q12H PRN PRN Reason: Mild Constipation Albuterol (Albuterol Neb (Sohail)) 2.5 mg NEB Q2HR NEB PRN PRN Reason: SHORTNESS OF BREATH/WHEEZING Albuterol (Duoneb Neb (Prn)) 1 ampul NEB Q6HR NEB [facility] Aspirin (Aspirin Chew) 81 mg PO BID SOHAIL Chlorhexidine Gluconate (Chlorhexidine 2% Cloth) 3 pack TOPICAL DAILY@0400 SOHAIL Stop: 05/10/18 03:59 Chlorhexidine Gluconate (Chlorhexidine 2% Cloth) 3 pack TOPICAL DAILY@0400 PRN PRN Reason: Extra cloth needed Stop: 05/10/18 03:59 Famotidine (Pepcid Pf Inj) 20 mg IV.PUSH Q12HR SOHAIL Heparin Sodium (Porcine) (Heparin Inj) 4,000 units IV.PUSH NOW STA Stop: 05/04/18 11:01 Heparin Sodium/Dextrose (Heparin/D5w 25,000 U/250 Ml) 25,000 unit in 250 mls @ 0 mls/hr IV.CONT TITRATE PRN; Protocol PRN Reason: Per Protocol Midazolam HCl (Versed Inj) 50 mg in 50 mls @ 2 mls/hr IV.CONT TITRATE PRN; Protocol PRN Reason: Per Protocol Lactulose (Lactulose Liq) 30 ml PO DAILY PRN PRN Reason: SEVERE CONSITIPATION Senna/Docusate Sodium (Roxy-Colace) 1 tab PO BID [facility] Sodium Chloride (Ns Flush) 2 ml IV.FLUSH BID SOHAIL Sodium Chloride (Ns Flush) 2 ml IV.FLUSH PRN PRN PRN Reason: FLUSH AFTER USING IV ACCESS Tamsulosin HCl (Flomax) 0.4 mg PO DAILY [facility] Allergies Allergy/AdvReac Type Severity Reaction Status Date / Time No Known Allergies Allergy Unverified 05/04/18 09:31 Home Medications Medication Instructions Recorded Confirmed Type glipizide 5 mg PO BID 04/26/18 05/04/18 History acetaminophen 650 mg PO Q4H PRN 05/04/18 05/04/18 History aspirin 81 mg PO BID 05/04/18 05/04/18 History hydrocodone-acetaminophen 1 tab PO Q6H PRN 05/04/18 05/04/18 History insulin aspart U-100 [Novolog 20 unit SUB-Q ONCE 05/04/18 05/04/18 History U-100 Insulin aspart] magnesium hydroxide [Milk of 30 ml PO DAILY PRN 05/04/18 05/04/18 History Magnesia] sennosides 17.2 mg PO DAILY 05/04/18 05/04/18 History Results - Labs CBC & Chem 7: 05/04/18 14:58 05/04/18 07:40 Labs: Short CBC 05/04/18 Range/Units 08:30 WBC 14.6 H (4.0-11.0) th/mm3 Hgb 7.9 L (13.0-17.0) gm/dL Hct 23.9 L (39.0-51.0) % Plt Count 298 (150-450) th/mm3 BMP 05/04/18 07:40 Sodium 136 Potassium 5.1 Chloride 106 Carbon Dioxide 17.2 L BUN 77 H Creatinine 2.99 H Calcium 8.4 L Cardiac Enzymes 05/04/18 Range/Units 07:40 Total Creatine Kinase 596 H (39-308) U/L CK-MB (CK-2) 21.3 H (0.5-3.6) ng/mL Troponin I 5.01 H* (0.02-0.05) ng/mL Liver Function 05/04/18 Range/Units 07:40 Total Bilirubin 0.9 (0.2-1.0) mg/dL AST 92 H (15-37) U/L ALT 30 (12-78) U/L Alkaline Phosphatase 98 (45-117) U/L Albumin 2.1 L (3.4-5.0) g/dL - Imaging Impressions Chest X-Ray 05/04/18 07:48 CONCLUSION: Marked deterioration appearance of the chest from comparison study. Significant perihilar infiltrate evident. Exam Vital signs: Vital Signs 05/04/18 07:41 05/04/18 07:55 05/04/18 08:09 Temperature 100.2 F H Pulse Rate 110 H 113 H Respiratory Rate 22 24 26 H Blood Pressure 88/55 L 91/56 L Pulse Oximetry 91 L 88 L 95 05/04/18 08:45 05/04/18 08:49 05/04/18 09:32 Temperature Pulse Rate 109 H Respiratory Rate 26 H Blood Pressure 90/53 L Pulse Oximetry 86 L 95 95 05/04/18 10:42 05/04/18 11:20 05/04/18 11:33 Temperature Pulse Rate 110 H 99 H Respiratory Rate 26 H Blood Pressure 88/59 L 80/50 L 69/47 L Pulse Oximetry 94 L 05/04/18 11:39 05/04/18 11:42 05/04/18 11:44 Temperature Pulse Rate 105 H 112 H Respiratory Rate 16 16 Blood Pressure 74/47 L 98/55 L Pulse Oximetry 89 L 95 Intake & Output 05/03/18 05/04/18 05/04/18 18:59 06:59 18:59 Weight 86.183 kg Narrative: GENERAL: Elderly male who appears to be in severe respiratory distress hypoxic currently ED doctor preparing to intubate the patient SKIN: Focused skin assessment warm/dry. HEAD: Atraumatic. Normocephalic. ENT: No nasal bleeding or discharge. Dry mucous membranes. NECK: Trachea midline. CARDIOVASCULAR: Regular, tachycardic with a heart rate of 110. Hypotensive systolic blood pressure in the 80s RESPIRATORY: Tachypneic hypoxemic on 100% nonrebreather oxygen saturation 85-90% . Diffuse wheezes and crackles GASTROINTESTINAL: Abdomen slightly distended, nontender. MUSCULOSKELETAL: Dressing in place over the right lateral hip. NEUROLOGICAL: Severe respiratory distress limits exam but patient is oriented to person able to follow some simple commands. Limited exam is nonfocal Septic Shock Reassessment Septic shock perfusion: reassessment completed Caprini VTE Risk Assessment Caprini VTE Risk Assessment: Moderate/High Risk (score >= 2) Caprini Risk Assessment Model: Point Value = 1 Point Value = 2 Point Value = 3 Point Value = 5 Age 41-60 Minor surgery BMI > 25 kg/m2 Swollen legs Varicose veins or History of unexplained or recurrent spontaneous Oral contraceptives or hormone replacement Sepsis (< 1 month) Serious lung disease, including pneumonia (< 1 month) Abnormal pulmonary function Acute myocardial infarction Congestive heart failure (< 1 month) History of inflammatory bowel disease Medical patient at bed rest Age 61-74 Arthroscopic surgery Major open surgery (> 45 min) Laparoscopic surgery (> 45 min) Malignancy Confined to bed (> 72 hours) Immobilizing plaster cast Central venous access Age >= 75 History of VTE Family history of VTE Factor V Leiden Prothrombin [id number] Lupus anticoagulant Anticardiolipin antibodies Elevated serum homocysteine Heparin-induced thrombocytopenia Other congenital or acquired thrombophilia Stroke (< 1 month) Elective arthroplasty Hip, pelvis, or leg fracture Acute spinal cord injury (< 1 month) Prophylaxis Regimen: Total Risk Factor Score Risk Level Prophylaxis Regimen 0-1 Low Early ambulation 2 Moderate Order ONE of the following: *Sequential Compression Device (SCD) *Heparin 5000 units SQ BID 3-4 Higher Order ONE of the following medications: *Heparin 5000 units SQ TID *Enoxaparin/Lovenox 40 mg SQ daily (WT < 150 kg, CrCl > 30 mL/min) *Enoxaparin/Lovenox 30 mg SQ daily (WT < 150 kg, CrCl > 10-29 mL/min) *Enoxaparin/Lovenox 30 mg SQ BID (WT < 150 kg, CrCl > 30 mL/min) AND/OR *Sequential Compression Device (SCD) 5 or more Highest Order ONE of the following medications: *Heparin 5000 units SQ TID (Preferred with Epidurals) *Enoxaparin/Lovenox 40 mg SQ daily (WT < 150 kg, CrCl > 30 mL/min) *Enoxaparin/Lovenox 30 mg SQ daily (WT < 150 kg, CrCl > 10-29 mL/min) *Enoxaparin/Lovenox 30 mg SQ BID (WT < 150 kg, CrCl > 30 mL/min) AND *Sequential Compression Device (SCD) Assessment and Plan - Problem List (1) Acute on chronic respiratory failure with hypoxemia Code(s): J96.21 - Acute and chronic respiratory failure with hypoxia Status: Acute (2) NSTEMI (non-ST elevated myocardial infarction) Code(s): I21.4 - Non-ST elevation (NSTEMI) myocardial infarction Status: Acute (3) Pulmonary edema Code(s): J81.1 - Chronic pulmonary edema Status: Acute (4) Severe sepsis Code(s): A41.9 - Sepsis, unspecified organism; R65.20 - Severe sepsis without septic shock Status: Acute (5) Cardiogenic shock Code(s): R57.0 - Cardiogenic shock Status: Acute (6) Acute on chronic kidney failure Code(s): N17.9 - Acute kidney failure, unspecified; N18.9 - Chronic kidney disease, unspecified Status: Acute (7) Lactic acidosis Code(s): E87.2 - Acidosis Status: Acute (8) COPD exacerbation Code(s): J44.1 - Chronic obstructive pulmonary disease with (acute) exacerbation Status: Acute - Assessment and Plan Plan: NEURO: Acute metabolic encephalopathy -Altered mentation most likely from sepsis and acute illness -Postintubation placed on Versed infusion for sedation and vent synchrony RESP: Acute hypoxemic respiratory failure COPD with exacerbation Pulmonary edema Probable healthcare associated pneumonia -Severely hypoxemic in respiratory distress [facility] with PEEP 10, follow-up ABG in 1 hour -DuoNeb every 6 hours scheduled and as needed -Sputum culture, empiric Zosyn -See diuresis below CV: NSTEMI Cardiogenic shock Pulmonary edema Acute systolic heart failure -Place arterial line for Flowtrack monitoring of cardiac index and output -Levophed to keep map above 65 -Due to pulmonary edema and severe hypoxia will start IV albumin and IV Lasix 40 mg every 12 hours -Await 2D echo, consider dobutamine, cardiology consult -Received aspirin in the ED, continue aspirin 81 mg daily from tomorrow -Start IV heparin, no beta blockers or YUNG inhibitors due to cardiogenic shock -Start atorvastatin 40 mg daily GI: -N.p.o., IV famotidine : Acute on chronic kidney disease -Monitor renal function closely. Jean catheter. -Acute renal failure workup, including UA and renal US ordered -Despite worsening creatinine I will start IV Lasix with IV albumin due to severe hypoxemia and pulmonary edema ID: Severe sepsis Probable HCAP -IV vancomycin 1 gm IV x1 and Zosyn 3.375 GM IV q8 hours. -F/u Blood cultures urine cx and sputum culture -Trend lactic acid HEME: -Monitor CBC, CMP -IV heparin ENDO: Hyperglycemia/uncontrolled diabetes -Start insulin infusion non-DKA protocol algorithm 2 -Check beta hydroxybutyrate -Replace electrolytes as needed PROPH: -Bilateral lower extremity SCDs. IV heparin infusion, IV famotidine LINES: Left subclavian central line placed 05/04/2018. Will place radial arterial line after patient arrived in the ICU CC time 82 min excluding procedures Code Status: Full Discussed Condition With: Dr. Shrestha (3) Pulmonary edema Qualifiers: Chronicity: acute Qualified Code(s): J81.0 - Acute pulmonary edema (6) Acute on chronic kidney failure Qualifiers: Chronic kidney disease stage: unspecified stage
[2018-05-04] MEDS ORDERED: Heparin 10,000 UNITS/10 ML Vial (for IV use) IV.PUSH STA (12:15)
[2018-05-04] MEDS ORDERED: Dextrose 50% in Water 50 ML Vial IV.PUSH PRN (12:16)
--- NOTE | 2018-05-04 12:29 | XR ---
EXAM DATE: 05/04/2018 12:25 PM EDT AGE/SEX: 82 years / Male INDICATIONS: Left side central line placement. CLINICAL DATA: This is the patient's subsequent encounter. Patient reports that signs and symptoms h ave been present for 1 day and indicates a pain score of Nonresponsive. MEDICAL/SURGICAL HISTORY: Non-responsive. Non-responsive. COMPARISON: [facility], CHEST 1V SINGLE AP, 05/04/2018. . FINDINGS: Endotracheal tube is in good position. NG is seen entering the stomach. Left central line in superior vena cava. Bilateral mostly perihilar airspace consolidation and small effusions. Airspace disease h as worsened slightly since May 04 exam from earlier today. CONCLUSION: Left central line tip in superior vena cava without pneumothorax. Electronically signed by: Nolberto Coats MD 05/04/2018 12:28 PM EDT
[2018-05-04 12:42] LABS: ABG Base Excess -12.6 mmol/L (-2-2); ABG PCO2 49 mmHg (38-42); ABG PO2 81 mmHg (61-120)
[2018-05-04] MEDS ORDERED: Sodium Bicarbonate 8.4% Inj 50 MEQ/50 ML Syringe IV.PUSH ONE (12:46)
--- NOTE | 2018-05-04 12:59 | MB ---
cc: Get Douglass MD DATE: 05/04/2018 REASON FOR CONSULTATION: Abnormal troponin level. HISTORY OF PRESENT ILLNESS: The patient is an 82-year-old white male with a history of hyperlipidemia, diabetes, hypothyroidism, chronic renal insufficiency, who was brought in from [facility] due to hyperglycemia. In the emergency department, he may have aspirated resulting in increasing respiratory distress, so he was intubated and placed on mechanical ventilation. Cardiac enzymes were checked and found to be abnormal. Currently, the patient is intubated and sedated, unable to give any history. There were no apparent complaints of chest pains. PAST MEDICAL HISTORY: 1. Hyperlipidemia. 2. Diabetes. 3. Chronic renal insufficiency. PAST SURGICAL HISTORY: 1. Status post recent right hip surgery about a week ago. 2. History of left toe amputation. CARDIAC MEDICATIONS AT HOME: Aspirin 81 mg p.o. b.i.d. and Lovenox 40 mg subcutaneously daily. ALLERGIES: NO KNOWN DRUG ALLERGIES. FAMILY HISTORY: Noncontributory. SOCIAL HISTORY: Currently unobtainable. He apparently is a former smoker. REVIEW OF SYSTEMS: Currently, unobtainable. PHYSICAL EXAMINATION: VITAL SIGNS: His blood pressure 104/56 with a pulse of 118, respirations 16. GENERAL: He is a well-developed, well-nourished white male, currently intubated and sedated. NECK: Jugular venous pressure is 8 cm of water. Carotid pulses are 2+ bilaterally and without bruits. CHEST: Reveals clear lungs funez anteriorly. CARDIAC: He has a tachycardic, regular rhythm without S3, S4, or murmur. ABDOMEN: He has a soft abdomen. Bowel sounds are present. There is no definite hepatosplenomegaly. EXTREMITIES: Reveals no clubbing, cyanosis or edema. LABORATORY DATA: Includes WBC 14.6, hemoglobin 7.9. Platelets 298, potassium 5.1, BUN 77, creatinine 2.99. CK 596 with 3.6% MB fraction. Troponin 5.01. Brain natriuretic peptide level 2359. IMAGING STUDIES: Chest x-ray from today at 7:48 a.m. shows significant perihilar infiltrate. Subsequent chest x-ray at 11:41 a.m. shows further worsening of severe perihilar infiltrates. EKG shows sinus tachycardia, nonspecific intraventricular conduction delay, left axis deviation, nonspecific high lateral T-wave abnormality. IMPRESSION: Hypotension, possible non-ST elevation myocardial infarction, respiratory failure in part due to congestive heart failure in this 82-year-old white male with a history of diabetes, hyperlipidemia, chronic renal insufficiency. History is currently unobtainable from the patient. Troponin level is elevated, suggestive of non-ST elevation myocardial infarction. He does have a nonspecific intraventricular conduction delay on EKG, new compared to a week ago. He is a poor candidate for invasive cardiac evaluation and coronary angiography at this time with his elevated creatinine. His initial chest x-ray, laboratory data do suggest the possibility of acute congestive heart failure. He may have also had aspiration here in the emergency department. Echocardiogram is pending. He remains on Levophed pressor support at 10 mcg per minute. RECOMMENDATIONS: 1. Continue daily aspirin. 2. Agree with intravenous Lasix diuresis. 3. Continue pressor support as needed. 4. Await his 2-D echo. 5. Overall conservative medical management of his cardiac problems given his advanced age, poor functional status, renal insufficiency. MD SAEED Ly/KOBE , 12:36 PM , 12:57 PM DAVIS
[2018-05-04] MEDS ORDERED: Sodium Bicarbonate 8.4% Inj 75 MEQ in Sodium Chloride 0.45 % Inj 925 ML IV.CONT SCH (13:00)
[2018-05-04] MEDS: Piperacil/Tazo 3.375 GM Premix 50 ML IV.SIG SCH ×2 (13:12→20:41)
[2018-05-04 13:19] LABS: Activated Partial Thrombo Time 25.3 sec (24.3-30.1); INR 1.1 Ratio; Prothrombin Time 10.9 sec (9.8-11.6)
--- NOTE | 2018-05-04 14:12 | ECG ---
Date Performed: 05/04/2018 Time Performed: 07:37:54 PTAGE: 82 years EKG: SINUS TACHYCARDIA MARKED LEFT AXIS DEVIATION INTRAVENTRICULAR CONDUCTION DELAY Nonspecific ST and T wave abnormalities SEPTAL MYOCARDIAL INFARCTION ABNORMAL ECG Compared to prior electrocardio gram, Intraventricular conduction defect and STT wave changes are present. PREVIOUS TRACING : 04/26/2018 20.47 DOCTOR: Bear Baires Interpretating Date/Time 05/04/2018 14:12:00
[2018-05-04 14:46] LABS: ABG Base Excess -10.9 mmol/L (-2-2); ABG PCO2 37 mmHg (38-42); ABG PO2 123 mmHg (61-120)
[2018-05-04 15:09] LABS: Hematocrit 25.8 % (39.0-51.0); Hemoglobin 8.4 gm/dL (13.0-17.0); Mean Corpuscular HGB Conc 32.6 % (32.0-36.0); Mean Corpuscular Hemoglobin 30.9 pg (27.0-34.0); Mean Corpuscular Volume 94.7 fL (80.0-100.0); Mean Platelet Volume 7.6 fL (7.0-11.0); Platelet Count 329 th/mm3 (150-450); Red Blood Count 2.73 mil/mm3 (4.50-5.90); Red Cell Distribution Width 13.1 % (11.6-17.2); White Blood Count 16.6 th/mm3 (4.0-11.0)
[2018-05-04] MEDS: Midazolam 50 MG/50 ML Inj 50 MG/50 ML BAG IV.CONT PRN (16:11)
[2018-05-04] MEDS: Albumin Human 25% Inj 100 ML IV.SIG SCH (16:36)
[2018-05-04] MEDS: Oral Hygiene Kit OROPHARYNG SCH (16:36)
--- NOTE | 2018-05-04 16:40 | ECHRPT ---
Indication: heart failure CONCLUSIONS Technically very difficult study. Left ventricular systolic function is probably esgfxfum-[id number] reduced with an estimated ejection fraction in the range of 35-40%. There is severe hypokinesis of the mid t o distal septal, mid to distal anterior and apical garcia. Normal left ventricular size. Wall thickness is nor mal. Mild mitral annular calcification. Trace mitral valve regurgitation. Trileaflet aortic valve. Diffuse mild calcification of the aortic valve. There is mild tricuspid valve regurgitation. The estimated pulmonary arterial pressure is 35 mmHg. BP: / HR: Rhythm: MEASUREMENTS (Male / Female) Normal Values Technical Quality:Poor 2D ECHO LV Diastolic Diameter PLAX 4.8 cm 4.2 - 5.9 / 3.9 - 5.3 cm LV Systolic Diameter PLAX 4.1 cm IVS Diastolic Thickness 1.0 cm 0.6 - 1.0 / 0.6 - 0.9 cm LVPW Diastolic Thickness 1.0 cm 0.6 - 1.0 / 0.6 - 0.9 cm LV Relative Wall Thickness 0.4 LVOT Diameter 2.0 cm LA Systolic Diameter LX 3.9 cm 3.0 - 4.0 / 2.7 - 3.8 cm LV Ejection Fraction MOD 4C 34.3 % LV Ejection Fraction 4C AL 34.4 % M-MODE Aortic Root Diameter MM 2.2 cm AV Cusp Separation MM 1.4 cm DOPPLER AV Peak Velocity 122.0 cm/s AV Peak Gradient 6.0 mmHg LVOT Peak Velocity 83.9 cm/s LVOT Peak Gradient 2.8 mmHg AV Area Cont Eq pk 2.2 cm MV Peak Velocity 128.0 cm/s MV Peak Gradient 6.6 mmHg MV Mean Velocity 78.1 cm/s MV Mean Gradient 3.0 mmHg MV Area PHT 3.2 cm Mitral E Point Velocity 121.0 cm/s Mitral A Point Velocity 91.8 cm/s Mitral E to A Ratio 1.3 LV E' Lateral Velocity 5.1 cm/s Mitral E to LV E' Lateral Ratio 23.9 LV E' Septal Velocity 4.7 cm/s Mitral E to LV E' Septal Ratio 25.9 TR Peak Velocity 262.0 cm/s TR Peak Gradient 27.5 mmHg Right Atrial Pressure 10.0 mmHg Pulmonary Artery Systolic Pressu 37.5 mmHg Right Ventricular Systolic Press 37.5 mmHg FINDINGS LEFT VENTRICLE The left ventricular systolic function is ziceohlj-ww-mbziurj reduced with an estimated ejection fra ction in the range of 35-40%. There is severe hypokinesis of the mid to distal septal, mid to distal anterior and apical garcia. Normal left ventricular size. Wall thickness is normal. RIGHT VENTRICLE Normal right ventricular size and systolic function. LEFT ATRIUM The left atrial size is normal. RIGHT ATRIUM The right atrial size is normal. ATRIAL SEPTUM Normal atrial septal thickness without atrial level shunting by limited color doppler interrogation. AORTA The aortic root and proximal ascending aorta are normal in size on limited imaging. MITRAL VALVE Mild mitral annular calcification. Trace mitral valve regurgitation. AORTIC VALVE Trileaflet aortic valve. Diffuse mild calcification of the aortic valve. TRICUSPID VALVE Structurally normal tricuspid valve. There is mild tricuspid valve regurgitation. The estimated pulmonary arterial pressure is 35 mmHg. PULMONARY VALVE No pulmonary valve regurgitation or stenosis. VESSELS The inferior vena cava is normal in size. PERICARDIUM No pericardial effusion. Gte Douglass MD (Electronically Signed) Final Date:04 May 2018 16:39
[2018-05-04 17:12] LABS: ABG Base Excess -7.8 mmol/L (-2-2); ABG PCO2 35 mmHg (38-42); ABG PO2 240 mmHG (61-120)
[2018-05-04] MEDS: Insulin Regular (For Infusion) 100 UNIT in Sodium Chlor 0.9% Inj 99 ML IV.CONT PRN (17:17)
[2018-05-04] MEDS ORDERED: Vancomycin Inj 1,000 MG in Sodium Chlor 0.9% Inj 250 ML IV.SIG ONE (17:17)
[2018-05-04] MEDS: Norepinephrine Inj 4 MG in Sodium Chlor 0.9% Inj 246 ML IV.SIG PRN (18:46)
[2018-05-04] MEDS: Chlorhexidine 0.12% Oral Kit 15 ML UDC OROPHARYNG SCH (20:43)
[2018-05-04] MEDS: Senna/Docusate Sodium 8.6/50 MG Tablet PO SCH (20:44)
[2018-05-04] MEDS ORDERED: Famotidine PF Inj 20 MG/2 ML Vial IV.PUSH PRN (21:00)
[2018-05-04 21:05] LABS: Alanine Aminotransferase 58 U/L (12-78); Albumin 2.2 g/dL (3.4-5.0); Anion Gap 15 meq/L (5-15); Aspartate Aminotransferase 147 U/L (15-37); Blood Urea Nitrogen 79 mg/dL (7-18); Calcium 8.5 mg/dL (8.5-10.1); Carbon Dioxide 18.4 meq/L (21.0-32.0); Chloride 104 meq/L (98-107); Glomerular Filtration Rate 18 mL/min (>89); Glucose,Random 362 mg/dL (74-106); Potassium 4.6 meq/L (3.5-5.1); Sodium 137 meq/L (136-145)
[2018-05-04 21:08] LABS: Alkaline Phosphatase 93 U/L (45-117); Total Protein 6.1 g/dL (6.4-8.2)
[2018-05-05] MEDS: Oral Hygiene Kit OROPHARYNG SCH ×5 (00:48→16:31)
[2018-05-05] MEDS: Norepinephrine Inj 4 MG in Sodium Chlor 0.9% Inj 246 ML IV.SIG PRN ×3 (00:49→18:37)
[2018-05-05] MEDS: Albumin Human 25% Inj 100 ML IV.SIG SCH ×2 (02:16→16:45)
[2018-05-05] MEDS: Insulin Regular (For Infusion) 100 UNIT in Sodium Chlor 0.9% Inj 99 ML IV.CONT PRN (02:28)
[2018-05-05] MEDS ORDERED: Chlorhexidine Gluconate 2% 1 Pack (2 Cloths) TOPICAL PRN (04:00)
[2018-05-05 04:34] LABS: Baso % (Auto) 0.1 % (0.0-2.0); Eos % (Auto) 0.3 % (0.0-4.0); Hematocrit 22.3 % (39.0-51.0); Hemoglobin 7.6 gm/dL (13.0-17.0); Lymph # (Auto) 0.6 th/mm3 (1.0-4.8); Lymph % (Auto) 4.6 % (9.0-44.0); Mean Corpuscular HGB Conc 33.9 % (32.0-36.0); Mean Corpuscular Hemoglobin 31.3 pg (27.0-34.0); Mean Corpuscular Volume 92.5 fL (80.0-100.0); Mean Platelet Volume 7.1 fL (7.0-11.0); Mono # (Auto) 0.8 th/mm3 (0.0-0.9); Neut # (Auto) 11.4 th/mm3 (1.8-7.7); Platelet Count 312 th/mm3 (150-450); Red Blood Count 2.41 mil/mm3 (4.50-5.90); Red Cell Distribution Width 12.9 % (11.6-17.2); White Blood Count 12.8 th/mm3 (4.0-11.0)
[2018-05-05 05:14] LABS: Albumin 1.7 g/dL (3.4-5.0); Calcium 5.8 mg/dL (8.5-10.1); Carbon Dioxide 13.3 meq/L (21.0-32.0); Magnesium 2.3 mg/dL (1.5-2.5); Phosphorus 2.4 mg/dL (2.5-4.9); Total Protein 4.1 g/dL (6.4-8.2)
[2018-05-05 05:20] LABS: Potassium 2.8 meq/L (3.5-5.1)
[2018-05-05] MEDS: Piperacil/Tazo 3.375 GM Premix 50 ML IV.SIG SCH ×4 (05:49→22:59)
[2018-05-05] MEDS ORDERED: Potassium Chlor 40 mEq Premix 40 MEQ/100 ML PIGGYBACK IV.SIG ONE (07:30)
[2018-05-05] MEDS ORDERED: fentaNYL 10 mcg/mL Premix Drip 2,500 MCG/250 ML BAG IV.SIG PRN (08:18)
[2018-05-05] MEDS: Senna/Docusate Sodium 8.6/50 MG Tablet PO SCH ×2 (08:20→20:52)
[2018-05-05] MEDS: Chlorhexidine 0.12% Oral Kit 15 ML UDC OROPHARYNG SCH ×3 (08:21→20:52)
[2018-05-05] MEDS: Midazolam 50 MG/50 ML Inj 50 MG/50 ML BAG IV.CONT PRN ×2 (08:25→19:30)
--- NOTE | 2018-05-05 08:39 | P.PNCA ---
Subjective Interval history: Intubated. Sedated. Physical Exam Vital signs: Vital Signs 05/04/18 08:45 05/04/18 08:49 05/04/18 09:32 Temperature Pulse Rate 109 H Respiratory Rate 26 H Blood Pressure 90/53 L Pulse Oximetry 86 L 95 95 05/04/18 10:42 05/04/18 11:20 05/04/18 11:33 Temperature Pulse Rate 110 H 99 H Respiratory Rate 26 H Blood Pressure 88/59 L 80/50 L 69/47 L Pulse Oximetry 94 L 05/04/18 11:39 05/04/18 11:42 05/04/18 11:44 Temperature Pulse Rate 105 H 112 H Respiratory Rate 16 16 Blood Pressure 74/47 L 98/55 L Pulse Oximetry 89 L 95 05/04/18 12:01 05/04/18 12:34 05/04/18 13:36 Temperature Pulse Rate 118 H 114 H Respiratory Rate 16 16 22 Blood Pressure 104/56 L 109/55 L Pulse Oximetry 92 L 96 05/04/18 13:59 05/04/18 15:59 05/04/18 16:00 Temperature 97.8 F Pulse Rate 102 H 93 H Respiratory Rate 18 22 20 Blood Pressure 96/55 L 97/56 L Pulse Oximetry 100 100 05/04/18 18:13 05/04/18 20:00 05/04/18 20:02 Temperature 98.7 F Pulse Rate 91 H 91 H Respiratory Rate 22 21 21 Blood Pressure 91/55 L Pulse Oximetry 100 100 05/05/18 00:33 05/05/18 00:34 05/05/18 01:58 Temperature 99.1 F Pulse Rate 91 H Respiratory Rate 21 23 24 Blood Pressure 93/52 L Pulse Oximetry 100 100 05/05/18 03:57 05/05/18 04:00 05/05/18 07:53 Temperature 99.0 F Pulse Rate 96 H 96 H Respiratory Rate 25 H 28 H 31 H Blood Pressure 98/56 L Pulse Oximetry 100 100 99 Intake & Output 05/04/18 05/05/18 05/05/18 18:59 06:59 18:59 Intake Total 500 / 500 400 / 400 200 / 200 Output Total 175 / 175 100 / 100 Balance 325 / 325 300 / 300 200 / 200 Weight 93.5 kg 95 kg Intake: IV 500 / 500 400 / 400 200 / 200 NovoLIN R (IV Infusion) 100 100 / 100 UNIT In NS Inj 99 ML @ Per Protocol IV.CONT TITRATE PRN Rx #:[id number] Versed Inj 50 mg In 50 ml @ 2 50 / 50 MG/HR 2 mls/hr IV.CONT TITRATE PRN Rx#:[id number] Flexbumin 25% Inj 100 ML @ 60 100 / 100 100 / 100 mls/hr IV.SIG Q12H TAMMY Rx#: [id number] Azithromycin Inj 500 MG In NS 250 / 250 Inj 250 ML @ 250 mls/hr IV.SIG ONCE ONE Rx#:[id number] Maxipime Inj 2,000 MG In NS Inj 100 / 100 100 ML @ 200 mls/hr IV.SIG ONCE ONE Rx#:[id number] Levophed Inj 4 MG In NS Inj 246 250 / 250 ML @ 2 MCG/MIN 7.5 mls/hr IV. SIG TITRATE PRN Rx#:[id number] Zosyn 3.375 GM Premix 50 ML @ 50 / 50 50 / 50 50 / 50 100 mls/hr IV.SIG Q8H TAMMY Rx#: [id number] Output: Emesis 100 / 100 100 / 100 Urine Amount (Catheter) 75 / 75 Indwelling Urethral Catheter 75 / 75 Other: Date of Last Bowel Movement 05/04/18 05/04/18 Weight On Admission 93.5 kg - Constitutional Comments: Intubated. Sedated. - Routine Neck Exam Absent: JVD - Routine Respiratory Exam Comments: Clear lungs anteriorly. - Routine Cardiovascular Exam Present: RRR, S1, S2. Absent: murmur, gallop - Routine Abdominal Exam Present: soft, normoactive bowel sounds. Absent: organomegaly - Routine Extremities Exam Comments: SCD's in place - Urinary Catheter Management Indwelling Urethral Catheter Cath placed during this visit: yes Reason for continuing: Other continuation reason Insertion date: 05/04/18 Insertion time: 11:35 Assessment and Plan - Assessment (1) NSTEMI (non-ST elevated myocardial infarction) Code(s): I21.4 - Non-ST elevation (NSTEMI) myocardial infarction Status: Acute Plan: Probable acute or subacute NSTEMI. Stable overnight. Remains on ventilatory support. Echo shows EF ~35-40% with suggestion of LAD territory infarction. Patient poor candidate for invasive cardiac evaluation. BP's still too low for beta christopher. Recommend continue aspirin, heparin drip. (2) Congestive heart failure Code(s): I50.9 - Heart failure, unspecified Status: Acute Plan: Remains on ventilatory support. EF ~35-40% by echo. BP's too low for beta christopher. No YUNG-I or ARB with CRI. Recommend continue IV furosemide. - Plan Code Status: full code (2) Congestive heart failure Qualifiers: Heart failure type: systolic Heart failure chronicity: acute Qualified Code( s): I50.21 - Acute systolic (congestive) heart failure
[2018-05-05] MEDS ORDERED: Artificial Tears Opth Drops 15 ML Bottle EACH EYE SCH (09:00)
--- NOTE | 2018-05-05 09:58 | P.PNCC ---
Subjective Subjective Remarks/Hospital Course: The patient is a 82-year-old male with past medical history significant for COPD on home oxygen, type 2 diabetes, chronic kidney disease ( history is limited by the fact that patient is oriented 1 and in severe respiratory distress) who was discharged yesterday from [facility] after right hip replacement by Dr. Weaver. He was brought to the emergency department today from the group home for hyperglycemia, worsening shortness of breath and hypotension. EMS noted that the patient's O2 saturation on room air was in the 80s and placed on nonrebreather. In the ED patient was hypotensive and was administered 1 L of IV fluids. ABG showed 7.29/33/68, BE -10 and this was on simple mask. Lab work showed Troponin was elevated, at 5, BNP at 2599. The patient was administered aspirin 300 mg rectally. Chest x-ray showed pulmonary edema. The patient's BUN/creatinine was elevated, at 77/2.9. Patient has chronic kidney disease with baseline creatinine 1.5-1.7 per previous records. Patient also received broad-spectrum antibiotics in the ED. After reviewing the troponin and EKG, I have started the patient on IV heparin will continue aspirin, consult cardiology Dr. Douglass, due to hypotension avoid beta blockers and YUNG inhibitors at this time. I went down to the ED to evaluate the patient, on my arrival patient was in acute respiratory distress and hypoxemic 100% nonrebreather, Dr. Shrestha in the ED was getting ready to intubate the patient. Apparently patient deteriorated over the last 15 minutes, possibly aspirated. I examined the patient prior to intubation, he is quite tachypneic with bilateral rales and wheezes. It appears like congestive heart failure/pulmonary edema has worsened. Patient currently has NSTEMI and severe pulmonary edema. Patient is hypotensive with systolic blood pressure in the 80s. I have ordered stat Levophed to be started at 5 mcg/min and titrated up as needed to keep map above 65. Dr. Shrestha intubated and placed patient on vent. I have placed vent orders, due to hypoxia use PEEP 10. I will do the bedside echo after the patient arrived in ICU. If the EF is low we will attempt low-dose dobutamine. Ordered to receive IV heparin, continued aspirin, IV Lasix 40 mg every 12 hours along with IV albumin. I will also place an arterial line once the patient is ICU to start hemodynamic monitoring, Flowtrack monitoring for cardiac output cardiac index. For probable sepsis we will continue broad-spectrum antibiotics Zosyn and single dose of vancomycin SUBJECTIVE: 05/05: T-max 99.1. Currently 99. Person's midazolam drip at 8 mg and hour and fentanyl drip for sedation/analgesia. Remains on norepinephrine drip at 10 mcg/ min. 2 feeds will be initiated today. No bowel movement. Objective Vital Signs / I&O: Vital Signs 05/04/18 10:42 05/04/18 11:20 05/04/18 11:33 Temperature Pulse Rate 110 H 99 H Respiratory Rate 26 H Blood Pressure 88/59 L 80/50 L 69/47 L Pulse Oximetry 94 L 05/04/18 11:39 05/04/18 11:42 05/04/18 11:44 Temperature Pulse Rate 105 H 112 H Respiratory Rate 16 16 Blood Pressure 74/47 L 98/55 L Pulse Oximetry 89 L 95 05/04/18 12:01 05/04/18 12:34 05/04/18 13:36 Temperature Pulse Rate 118 H 114 H Respiratory Rate 16 16 22 Blood Pressure 104/56 L 109/55 L Pulse Oximetry 92 L 96 05/04/18 13:59 05/04/18 15:59 05/04/18 16:00 Temperature 97.8 F Pulse Rate 102 H 93 H Respiratory Rate 18 22 20 Blood Pressure 96/55 L 97/56 L Pulse Oximetry 100 100 05/04/18 18:13 05/04/18 20:00 05/04/18 20:02 Temperature 98.7 F Pulse Rate 91 H 91 H Respiratory Rate 22 21 21 Blood Pressure 91/55 L Pulse Oximetry 100 100 05/05/18 00:33 05/05/18 00:34 05/05/18 01:58 Temperature 99.1 F Pulse Rate 91 H Respiratory Rate 21 23 24 Blood Pressure 93/52 L Pulse Oximetry 100 100 05/05/18 03:57 05/05/18 04:00 05/05/18 07:53 Temperature 99.0 F Pulse Rate 96 H 96 H Respiratory Rate 25 H 28 H 31 H Blood Pressure 98/56 L Pulse Oximetry 100 100 99 Intake & Output 05/04/18 05/05/18 05/05/18 18:59 06:59 18:59 Intake Total 500 / 500 400 / 400 200 / 200 Output Total 175 / 175 100 / 100 Balance 325 / 325 300 / 300 200 / 200 Weight 93.5 kg 95 kg Intake: IV 500 / 500 400 / 400 200 / 200 NovoLIN R (IV Infusion) 100 100 / 100 UNIT In NS Inj 99 ML @ Per Protocol IV.CONT TITRATE PRN Rx #:[id number] Versed Inj 50 mg In 50 ml @ 2 50 / 50 MG/HR 2 mls/hr IV.CONT TITRATE PRN Rx#:[id number] Flexbumin 25% Inj 100 ML @ 60 100 / 100 100 / 100 mls/hr IV.SIG Q12H TAMMY Rx#: [id number] Azithromycin Inj 500 MG In NS 250 / 250 Inj 250 ML @ 250 mls/hr IV.SIG ONCE ONE Rx#:[id number] Maxipime Inj 2,000 MG In NS Inj 100 / 100 100 ML @ 200 mls/hr IV.SIG ONCE ONE Rx#:[id number] Levophed Inj 4 MG In NS Inj 246 250 / 250 ML @ 2 MCG/MIN 7.5 mls/hr IV. SIG TITRATE PRN Rx#:[id number] Zosyn 3.375 GM Premix 50 ML @ 50 / 50 50 / 50 50 / 50 100 mls/hr IV.SIG Q8H TAMMY Rx#: [id number] Output: Emesis 100 / 100 100 / 100 Urine Amount (Catheter) 75 / 75 Indwelling Urethral Catheter 75 / 75 Other: Date of Last Bowel Movement 05/04/18 05/04/18 Weight On Admission 93.5 kg Result Diagrams: 05/05/18 04:15 05/05/18 04:15 Other Results: Microbiology 05/04/18 12:45 Sputum - Endotracheal Gram Stain - Final Imaging: ITS Impressions Chest X-Ray 05/04/18 07:48 CONCLUSION: Marked deterioration appearance of the chest from comparison study. Significant perihilar infiltrate evident. Chest X-Ray 05/04/18 11:41 CONCLUSION: Left central line tip in superior vena cava without pneumothorax. Objective Remarks: GENERAL: 82-year-old male currently orotracheally intubated in place SKIN: Warm and dry. Small abrasion over right knee without active bleeding HEAD: Atraumatic. Normocephalic. EYES: Pupils equal and round. No scleral icterus. No injection or drainage. ENT: No nasal bleeding or discharge. Mucous membranes pink and moist. NECK: Trachea midline. No JVD. CARDIOVASCULAR: Tachycardic, RR. S1, S2 predose for without murmur RESPIRATORY: Coarse rhonchorous breath sounds appreciated anteriorly and posteriorly. No wheezing. Breath sounds equal bilaterally. GASTROINTESTINAL: Abdomen soft, non-tender, nondistended. Hypoactive bowel sounds appreciated MUSCULOSKELETAL: Extremities with trace bilateral lower extremity edema. Dorsalis pedis/posterior tibialis are dopplerable. Status post right I am nailing with anne in place. NEUROLOGICAL: Currently sedated on midazolam and fentanyl drips. Positive gag and corneal reflex. Positive cough. Withdraws to pain bilateral upper and lower extremities. Assessment and Plan - Assessment and Plan Plan: NEURO/PSYCH: Acute metabolic encephalopathy CT brain currently pending. Do not initiate heparin drip until CT performed with altered mental status Currently on midazolam drip at 10 mg an hour and fentanyl drip for sedation/ analgesia while intubated Goal of RA SS of -2 Daily sedation vacation Acetaminophen 650 mg by tube every 6 hours. As needed fever Holding hydrocodone/acetaminophen 7.5/325 1 tablet every 4 hours as needed for pain EEG ordered RESP: Acute hypoxemic respiratory failure COPD with exacerbation Pulmonary edema Probable healthcare associated pneumonia -PRVC/AC 18/550/1.1/5/50 Albuterol/ipratropium aerosols every 4 hours with albuterol aerosols every 2 hours as needed for dyspnea Ventilator bundle Spontaneous breathing trials when clinically indicated Follow-up on chest x-ray and ABG in a.m. 05/06 -See diuresis below CV: NSTEMI Cardiogenic shock Pulmonary edema Acute systolic heart failure -Place arterial line for Flowtrack monitoring of cardiac index and output. Cardiac output 7.1 L/min. SVV 4% -Currently on norepinephrine drip at 10 mg/min to keep map above 65 -Due to pulmonary edema and severe hypoxia will continue IV albumin and IV furosemide 40 mg every 12 hours -2D echocardiogram left ventricular systolic function is probably moderate-to- severly reduced with an estimated ejection fraction in the range of 35-40%. There is severe hypokinesis of the mid to distal septal, mid to distal anterior and apical garcia. Normal left ventricular size. Wall thickness is normal -Received aspirin in the ED, continue aspirin 81 mg twice daily from tomorrow -Start IV heparin drip per protocol if the brain CT negative for acute intracranial findings, no beta blockers or YUNG inhibitors due to cardiogenic shock Continue atorvastatin 40 mg daily with lipid panel ordered GI: Hypoalbuminemia Elevated AST -likely secondary to type II non-STEMI -N.p.o -will initiate tube feedings with Glucerna 1.5 goal at 20 cc an hour Lansoprazole for GI prophylaxis Docusate sodium senna 1 tablet twice daily for bowel regimen Recheck hepatic function panel in a.m. 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 Jean catheter. -Acute renal failure workup, including UA and renal US ordered along with urine creatinine, sodium and eosinophils -Creatinine has decreased to 2.33. Likely elevated creatinine secondary to vascular congestion Continue tamsulosin 0.4 mg daily Adjust IV fluids to one half normal saline with 1 ampule of sodium bicarbonate at 42 cc an hour Replace electrolytes as clinically indicated. 40 mEq KCl IV 1 now. Recheck this afternoon ID: Severe sepsis Probable HCAP -IV vancomycin 1 gm IV x1 and renally dose of piperacillin/tazobactam Pertinent cultures 05/04 -blood cultures 2 -pending 05/04 -UA -pending 05/04 -sputum -pending HEME: Leukocytosis Normocytic anemia -Monitor CBC, CMP in a.m. 05/06. No indication for transfusion of blood products at this time. -IV heparin if indicated ENDO: Hyperglycemia/uncontrolled diabetes -Start insulin infusion non-DKA protocol algorithm 2 currently at 4 units an hour On insulin aspart U 100 20 units before meals/at bedtime and insulin detemir 10 units at night at home along with glipizide 5 mg twice daily. These were on hold MSK: Recent right IM hip nailing by Dr. Bryan Weaver 05/11 Physical therapy evaluate and treat PROPH: -Bilateral lower extremity SCDs. IV heparin infusion, IV famotidine LINES: Left subclavian central line placed 05/04/2018. Will place radial arterial line after patient arrived in the ICU Level 2 follow-up
[2018-05-05] MEDS ORDERED: Vancomycin Consult Pharmacy 1 EACH OTHER SCH (11:00)
--- NOTE | 2018-05-05 11:27 | P.DIET ---
Nutritional Evaluation Screening comments: [facility] [place] TF Objective - Diagnosis Acute CHF, Hypoxia, PNA - Objective % IBW: 107 Body Weight Used for Calculations: Actual (95kg) Energy Needs - Lower Range (kCal/kg): 22 Energy Needs - Upper Range (kCal/kg): 26 Lower Limit kCal/kg (kCals): 2,068 Upper Limit kCal/kg (kCals): 2,470 Upper Limit Protein Factor (Grams per Kg): 1.0 Upper Protein Needs (Protein): 95 Dietitian Reviewed in Medical Record: Curent medications, Intake & Output, Labs , Medical history Diet Order: TF only Objective Comments: PMH: DM, HLD, CKD Stage III Meds include: Fentanyl, Lasix, Levemir, Regular Insulin 100 unit IV, Lactulose Labs include: Na 147, K+2.8, Cr 2.33, Ca 5.8, Cor Ca 7.2, Phos 2.4, Troponin 5.87, Glu 157, POC Glu 223,247, 210, Lactic Acid 2.5 Assessment Assessment: Pt at nutritional risk r/t dx. Pt intubated and sedated and to be started on a TF. Pt's nutritional needs as assessed above. Current TF order is for Glucerna 1.5. Because of pt's CKD and CHF, recommend Nepro (also carbohydrate steady for glucose control) with goal rate of 60 ml/hr. This provides pt with 2160 kcals, 97 gms protein (1 gm/kgBW) and 872 mls free water. Will monitor TF tolerance, clinical course. Recommendations: Recommend Nepro with goal rate 60 ml/hr (see above) Will monitor TF, clinical course. Dietitian to Monitor: Renal labs, Glucose level, Tube feeding tolerance, Weight change, Medical course
[2018-05-05] MEDS ORDERED: Sodium Bicarbonate 8.4% Inj 50 MEQ in Sodium Chloride 0.45 % Inj 950 ML IV.CONT SCH (12:00)
[2018-05-05] MEDS ORDERED: Potassium Phosphate Inj 15 MMOL in Sodium Chlor 0.9% Inj 150 ML IV.SIG ONE (12:00)
[2018-05-05 12:10] LABS: Chol/HDL Ratio 4.42 Ratio
[2018-05-05] MEDS ORDERED: Calcium Chloride Inj 0.33 GM in Dextrose 5% in Water Inj 100 ML IV.SIG ONE ×2 (13:00)
--- NOTE | 2018-05-05 13:27 | CT ---
EXAM DATE: 05/05/2018 1:15 PM EDT AGE/SEX: 82 years / Male INDICATIONS: Altered mental status. CLINICAL DATA: This is the patient's initial encounter. Patient reports that signs and symptoms have been present for 1 week and indicates a pain score of Nonresponsive. MEDICAL/SURGICAL HISTORY: None. None. RADIATION DOSE: 43.51 CTDI (mGy) COMPARISON: No prior exams available for comparison. TECHNIQUE: CT of the head without contrast. Using automated exposure control and adjustment of the mA and/or kV according to patient size, radiation dose was kept as low as reasonably achievable to ob tain optimal diagnostic quality images. DICOM format image data is available electronically for revi ew and comparison. FINDINGS: Cerebrum: The CSF spaces are enlarged. 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 No evidence of midline shift, mass lesion, hemorrhage or acute infarction. No extraaxial fluid collect ions are seen. Posterior Fossa: A large hypodense area is identified in the right cerebellum. Appears to be located along the posterior inferior cerebellar arterial distribution. There is no evidence of associated he morrhage. Extracranial: The visualized portion of the orbits is intact. Skull: The calvaria is intact. No evidence of skull fracture. CONCLUSION: 1. Large hypodense area in the right cerebellum characteristic of an infarct. Age is uncertain. MRI should be considered for further evaluation. 2. No evidence of supratentorial acute infarct, hemorrhage, mass or edema. 3. 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 Electronically signed by: David Salmon MD 05/05/2018 1:25 PM EDT
--- NOTE | 2018-05-05 14:59 | MG ---
cc: Brenda Braun MD EEG NUMBER: [id number] ROOM: 511 INDICATION: Intubated, Versed at 8 mg. Hyperventilation not done. Photic done. Withdrew left lower extremity only. CT shows large hypodense area of right cerebellum of infarct, age uncertain, old right basal ganglionic infarct. An 82-year-old male with a hip replaced and recently released from the hospital, came back because of hyperglycemia, worsening shortness of breath, decreased saturations. On Versed, norepinephrine, Zosyn, Flomax and others. DESCRIPTION OF RECORD: There is overall slowing about 4 Hz background. EKG cannot be interpreted, totally artifactual. Photic stimulation was given without any significant driving response noted. The patient is on Versed 8 mg. Deep tactile stimulation did not change the background, still predominantly slow. IMPRESSION: Abnormal electroencephalogram due to moderate slowing of background consistent with what appears to be moderate encephalopathy without any epileptiform features. Clinical correlation. Brenda Braun MD DF/DIANDRA , 02:20 PM , 02:57 PM
[2018-05-05] MEDS: Hypromellose 0.3% Opth Gel 10 GM Bottle EACH EYE SCH ×2 (16:45→19:30)
[2018-05-05] MEDS ORDERED: Vancomycin Inj 1,500 MG in Sodium Chlor 0.9% Inj 500 ML IV.SIG ONE (17:00)
[2018-05-05 17:03] LABS: Hemoglobin A1c 9.5 % (4.3-6.0)
[2018-05-05] MEDS: Insulin Detemir Inj 1,000 UNIT/10 ML Vial SQ SCH (22:56)
[2018-05-06] MEDS: Albumin Human 25% Inj 100 ML IV.SIG SCH (00:33)
[2018-05-06] MEDS: Oral Hygiene Kit OROPHARYNG SCH ×6 (00:34→23:40)
--- NOTE | 2018-05-06 01:10 | US ---
EXAM DATE: 05/06/2018 12:02 AM EDT AGE/SEX: 82 years / Male INDICATIONS: Increased lab values. CLINICAL DATA: This is the patient's initial encounter. Patient reports that signs and symptoms have been present for 1 day and indicates a pain score of Nonresponsive. MEDICAL/SURGICAL HISTORY: Diabetes. . Amputated toe. COMPARISON: No prior exams available for comparison. MEASUREMENTS: Right Kidney:__10.5 x 5.1 x 4.8 cm Left Kidney:__10.6 x 4.6 x 4.8 cm FINDINGS: Right Kidney: Increased echotexture. No mass or hydronephrosis. Left Kidney: Increased echotexture. No mass or hydronephrosis. Bladder: Jean catheter is present. Bladder decompressed. Other: Minimal ascites adjacent to the liver. CONCLUSION: 1. Kidneys are slightly echogenic which can be seen with medical renal disease. 2. Minimal ascites. Electronically signed by: Fran Lopez MD 05/06/2018 1:09 AM EDT
[2018-05-06] MEDS: Hypromellose 0.3% Opth Gel 10 GM Bottle EACH EYE SCH ×3 (01:34→18:07)
[2018-05-06] MEDS ORDERED: Dextrose 50% in Water 50 ML Vial IV.PUSH PRN ×2 (01:34→07:33)
[2018-05-06] MEDS: Midazolam 50 MG/50 ML Inj 50 MG/50 ML BAG IV.CONT PRN (01:35)
[2018-05-06] MEDS: Norepinephrine Inj 4 MG in Sodium Chlor 0.9% Inj 246 ML IV.SIG PRN ×4 (01:48→17:15)
[2018-05-06] MEDS ORDERED: Insulin NovoLOG Aspart Correctional Sugar Inj SQ SCH (04:00)
[2018-05-06] MEDS: Chlorhexidine Gluconate 2% 1 Pack (2 Cloths) TOPICAL SCH (04:00)
[2018-05-06] MEDS ORDERED: Insulin NovoLIN Regular Correctional Sugar Inj SQ SCH (04:00)
[2018-05-06] MEDS ORDERED: Vasopressin Inj 40 UNIT in Dextrose 5% in Water Inj 98 ML IV.CONT SCH ×2 (04:00)
[2018-05-06 04:08] LABS: Baso % (Auto) 0.2 % (0.0-2.0); Eos % (Auto) 0.3 % (0.0-4.0); Lymph # (Auto) 0.6 th/mm3 (1.0-4.8); Lymph % (Auto) 5.4 % (9.0-44.0); Mean Corpuscular HGB Conc 32.8 % (32.0-36.0); Mean Corpuscular Hemoglobin 31.4 pg (27.0-34.0); Mean Corpuscular Volume 95.6 fL (80.0-100.0); Mean Platelet Volume 7.8 fL (7.0-11.0); Mono # (Auto) 0.6 th/mm3 (0.0-0.9); Mono % (Auto) 5.6 % (0.0-8.0); Neut # (Auto) 9.8 th/mm3 (1.8-7.7); Neut % (Auto) 88.5 % (16.0-70.0); Platelet Count 243 th/mm3 (150-450); Red Cell Distribution Width 13.7 % (11.6-17.2)
[2018-05-06 04:10] LABS: Hematocrit 20.1 % (39.0-51.0); Hemoglobin 6.6 gm/dL (13.0-17.0)
[2018-05-06 04:39] LABS: Alanine Aminotransferase 50 U/L (12-78); Albumin 2.6 g/dL (3.4-5.0); Alkaline Phosphatase 78 U/L (45-117); Anion Gap 19 meq/L (5-15); Aspartate Aminotransferase 97 U/L (15-37); Blood Urea Nitrogen 84 mg/dL (7-18); Calcium 7.5 mg/dL (8.5-10.1); Carbon Dioxide 13.2 meq/L (21.0-32.0); Chloride 107 meq/L (98-107); Glomerular Filtration Rate 15 mL/min (>89); Glucose,Random 272 mg/dL (74-106); Magnesium 3.1 mg/dL (1.5-2.5); Phosphorus 5.4 mg/dL (2.5-4.9); Sodium 139 meq/L (136-145); Total Protein 5.9 g/dL (6.4-8.2)
[2018-05-06] MEDS: Piperacil/Tazo 3.375 GM Premix 50 ML IV.SIG SCH ×3 (04:42→16:04)
--- NOTE | 2018-05-06 05:05 | XR ---
EXAM DATE: 05/06/2018 4:20 AM EDT AGE/SEX: 82 years / Male INDICATIONS: Shortness of breath. CLINICAL DATA: This is the patient's subsequent encounter. Patient reports that signs and symptoms h ave been present for 3 days and indicates a pain score of Nonresponsive. MEDICAL/SURGICAL HISTORY: Non-responsive. Non-responsive. COMPARISON: [facility] [place], CHEST 1V SINGLE AP, 05/04/2018. . FINDINGS: A single AP view of the chest demonstrates bilateral patchy airspace disease mildly improved from pre vious study. Endotracheal tube, nasogastric tube and left subclavian central line stable position. Th e cardiomediastinal contours are unremarkable. Osseous structures are intact. CONCLUSION: Slight improvement of bilateral patchy airspace disease. Electronically signed by: Fran Lopez MD 05/06/2018 5:04 AM EDT
[2018-05-06 05:45] LABS: ABG Base Excess -15.8 mmol/L (-2-2); ABG PCO2 29 mmHg (38-42); ABG PO2 105 mmHG (61-120)
[2018-05-06] MEDS ORDERED: Sodium Bicarbonate 8.4% Inj 50 MEQ/50 ML Syringe IV.PUSH ONE (05:57)
[2018-05-06] MEDS ORDERED: Chlorothiazide Inj 500 MG Vial IV.PUSH STA (05:59)
[2018-05-06] MEDS: Chlorhexidine 0.12% Oral Kit 15 ML UDC OROPHARYNG SCH ×2 (07:31→20:28)
[2018-05-06] MEDS ORDERED: Vancomycin Consult Pharmacy 1 EACH OTHER SCH (07:52)
--- NOTE | 2018-05-06 07:52 | P.PNCC ---
Subjective Subjective Remarks/Hospital Course: The patient is a 82-year-old male with past medical history significant for COPD on home oxygen, type 2 diabetes, chronic kidney disease ( history is limited by the fact that patient is oriented 1 and in severe respiratory distress) who was discharged yesterday from [facility] after right hip replacement by Dr. Weaver. He was brought to the emergency department today from the [facility] for hyperglycemia, worsening shortness of breath and hypotension. EMS noted that the patient's O2 saturation on room air was in the 80s and placed on nonrebreather. In the ED patient was hypotensive and was administered 1 L of IV fluids. ABG showed 7.29/33/68, BE -10 and this was on simple mask. Lab work showed Troponin was elevated, at 5, BNP at 2599. The patient was administered aspirin 300 mg rectally. Chest x-ray showed pulmonary edema. The patient's BUN/creatinine was elevated, at 77/2.9. Patient has chronic kidney disease with baseline creatinine 1.5-1.7 per previous records. Patient also received broad-spectrum antibiotics in the ED. After reviewing the troponin and EKG, I have started the patient on IV heparin will continue aspirin, consult cardiology Dr. Douglass, due to hypotension avoid beta blockers and YUNG inhibitors at this time. I went down to the ED to evaluate the patient, on my arrival patient was in acute respiratory distress and hypoxemic 100% nonrebreather, Dr. Shrestha in the ED was getting ready to intubate the patient. Apparently patient deteriorated over the last 15 minutes, possibly aspirated. I examined the patient prior to intubation, he is quite tachypneic with bilateral rales and wheezes. It appears like congestive heart failure/pulmonary edema has worsened. Patient currently has NSTEMI and severe pulmonary edema. Patient is hypotensive with systolic blood pressure in the 80s. I have ordered stat Levophed to be started at 5 mcg/min and titrated up as needed to keep map above 65. Dr. Shrestha intubated and placed patient on vent. I have placed vent orders, due to hypoxia use PEEP 10. I will do the bedside echo after the patient arrived in ICU. If the EF is low we will attempt low-dose dobutamine. Ordered to receive IV heparin, continued aspirin, IV Lasix 40 mg every 12 hours along with IV albumin. I will also place an arterial line once the patient is ICU to start hemodynamic monitoring, Flowtrack monitoring for cardiac output cardiac index. For probable sepsis we will continue broad-spectrum antibiotics Zosyn and single dose of vancomycin SUBJECTIVE: 05/05: T-max 99.1. Currently 99. Hutchinson's midazolam drip at 8 mg and hour and fentanyl drip for sedation/analgesia. Remains on norepinephrine drip at 10 mcg/ min. 2 feeds will be initiated today. No bowel movement. 05/06 Patient is sedated with Versed 5mg/hr, on Levophed 20 mics, Vasopressin 0.04, given 4amps bicarb overnight. Renal function worse with Cr: 3.82 from 2.33 Receiving 1u PRBC for Hgb 6.6 Objective Vital Signs / I&O: Vital Signs 05/05/18 07:53 05/05/18 08:00 05/05/18 09:00 Temperature Pulse Rate 109 H 109 H Respiratory Rate 31 H Blood Pressure Pulse Oximetry 99 96 05/05/18 11:11 05/05/18 12:00 05/05/18 13:30 Temperature 99.4 F Pulse Rate 103 H 108 H Respiratory Rate 24 16 Blood Pressure 93/51 L Pulse Oximetry 100 100 05/05/18 16:00 05/05/18 16:10 05/05/18 19:09 Temperature 99.4 F Pulse Rate 115 H 111 H Respiratory Rate 16 28 H 23 Blood Pressure 93/51 L Pulse Oximetry 98 99 100 05/05/18 20:00 05/05/18 23:43 05/06/18 00:00 Temperature 99.9 F H 99.3 F Pulse Rate 116 H 113 H 111 H Respiratory Rate 26 H 23 25 H Blood Pressure 83/52 L 80/53 L Pulse Oximetry 100 100 100 05/06/18 03:46 05/06/18 04:00 Temperature 99.6 F Pulse Rate 105 H 124 H Respiratory Rate 26 H 26 H Blood Pressure 69/38 L Pulse Oximetry 98 Intake & Output 05/05/18 05/06/18 05/06/18 18:59 06:59 18:59 Intake Total 650 / 650 919 / 919 Output Total 275 / 275 5 / 5 Balance 375 / 375 914 / 914 Weight 98 kg Intake: IV 650 / 650 750 / 750 NovoLIN R (IV Infusion) 100 100 / 100 UNIT In NS Inj 99 ML @ Per Protocol IV.CONT TITRATE PRN Rx #:[id number] Versed Inj 50 mg In 50 ml @ 2 100 / 100 50 / 50 MG/HR 2 mls/hr IV.CONT TITRATE PRN Rx#:[id number] Flexbumin 25% Inj 100 ML @ 60 200 / 200 mls/hr IV.SIG Q12H TAMMY Rx#: [id number] Levophed Inj 4 MG In NS Inj 246 250 / 250 500 / 500 ML @ 2 MCG/MIN 7.5 mls/hr IV. SIG TITRATE PRN Rx#:[id number] Zosyn 3.375 GM Premix 50 ML @ 100 / 100 100 / 100 100 mls/hr IV.SIG Q6H TAMMY Rx#: [id number] Tube Feeding 89 / 89 Tube Irrigant 80 / 80 Intake (Blood Product) Amt 0 / 0 Rbc As-3 Leukoreduced Unit 0 / 0 [id number] Output: Urine Amount (Catheter) 275 / 275 5 / 5 Indwelling Urethral Catheter 275 / 275 5 / 5 Other: Date of Last Bowel Movement 05/05/18 05/05/18 Result Diagrams: 05/06/18 03:40 05/06/18 03:40 Other Results: Laboratory Results - last 12 hr 05/05/18 05/05/18 05/05/18 19:23 19:58 21:17 WBC RBC Hgb Hct MCV MCH MCHC RDW Plt Count MPV Prelim Diff (Auto) Neut % (Auto) Lymph % (Auto) [place] % (Auto) Eos % (Auto) Baso % (Auto) Neut # (Auto) Lymph # (Auto) [place] # (Auto) Eos # (Auto) Baso # (Auto) WBC Differential Diff Scan Differential Comment Puncture Site Patient Temperature O2 Saturation ABG pH ABG pCO2 ABG pO2 ABG HCO3 ABG O2 Content ABG Base Excess ABG Methemoglobin Yannick Test Hemoglobin Carboxyhemoglobin O2 Delivery Device Vent Setting Inspired O2 Critical Value Sodium Potassium Chloride Carbon Dioxide Anion Gap BUN Creatinine Estimated GFR POC Glucose 232 H 240 H 251 H Random Glucose Calcium Phosphorus Magnesium Total Bilirubin AST ALT Alkaline Phosphatase Ammonia Total Protein Albumin TSH MTS Gel Crossmatch 05/05/18 05/06/18 05/06/18 23:09 00:31 03:40 WBC 11.0 RBC 2.10 L Hgb 6.6 L* Hct 20.1 L* MCV 95.6 MCH 31.4 MCHC 32.8 RDW 13.7 Plt Count 243 MPV 7.8 Prelim Diff (Auto) Slide review pending Neut % (Auto) 88.5 H Lymph % (Auto) 5.4 L [place] % (Auto) 5.6 Eos % (Auto) 0.3 Baso % (Auto) 0.2 Neut # (Auto) 9.8 H Lymph # (Auto) 0.6 L [place] # (Auto) 0.6 Eos # (Auto) 0.0 Baso # (Auto) 0.0 WBC Differential . Diff Scan Auto diff confirmed Differential Comment . Puncture Site Patient Temperature O2 Saturation ABG pH ABG pCO2 ABG pO2 ABG HCO3 ABG O2 Content ABG Base Excess ABG Methemoglobin Yannick Test Hemoglobin Carboxyhemoglobin O2 Delivery Device Vent Setting Inspired O2 Critical Value Sodium Potassium Chloride Carbon Dioxide Anion Gap BUN Creatinine Estimated GFR POC Glucose 246 H 252 H Random Glucose Calcium Phosphorus Magnesium Total Bilirubin AST ALT Alkaline Phosphatase Ammonia Total Protein Albumin TSH MTS Gel Crossmatch 05/06/18 05/06/18 05/06/18 03:40 03:40 03:50 WBC RBC Hgb Hct MCV MCH MCHC RDW Plt Count MPV Prelim Diff (Auto) Neut % (Auto) Lymph % (Auto) [place] % (Auto) Eos % (Auto) Baso % (Auto) Neut # (Auto) Lymph # (Auto) [place] # (Auto) Eos # (Auto) Baso # (Auto) WBC Differential Diff Scan Differential Comment Puncture Site Patient Temperature O2 Saturation ABG pH ABG pCO2 ABG pO2 ABG HCO3 ABG O2 Content ABG Base Excess ABG Methemoglobin Yannick Test Hemoglobin Carboxyhemoglobin O2 Delivery Device Vent Setting Inspired O2 Critical Value Sodium 139 Potassium 5.0 Chloride 107 D Carbon Dioxide 13.2 L Anion Gap 19 H BUN 84 H Creatinine 3.82 H Estimated GFR 15 L POC Glucose 306 H Random Glucose 272 H D Calcium 7.5 L D Phosphorus 5.4 H D Magnesium 3.1 H D Total Bilirubin 1.7 H AST 97 H ALT 50 Alkaline Phosphatase 78 Ammonia 45 H Total Protein 5.9 L D Albumin 2.6 L D TSH 3.520 MTS Gel Crossmatch 05/06/18 05/06/18 05/06/18 04:56 05:30 07:06 WBC RBC Hgb Hct MCV MCH MCHC RDW Plt Count MPV Prelim Diff (Auto) Neut % (Auto) Lymph % (Auto) [place] % (Auto) Eos % (Auto) Baso % (Auto) Neut # (Auto) Lymph # (Auto) [place] # (Auto) Eos # (Auto) Baso # (Auto) WBC Differential Diff Scan Differential Comment Puncture Site Art line Patient Temperature 98.6 O2 Saturation 94 ABG pH 7.19 L* ABG pCO2 29 L ABG pO2 105 ABG HCO3 11 L* ABG O2 Content 12.6 ABG Base Excess -15.8 L ABG Methemoglobin 1.3 Yannick Test Present Hemoglobin 9.4 L Carboxyhemoglobin 1.1 O2 Delivery Device Ventilator Vent Setting See comments Inspired O2 40 Critical Value Yes Sodium Potassium Chloride Carbon Dioxide Anion Gap BUN Creatinine Estimated GFR POC Glucose Random Glucose Calcium Phosphorus Magnesium Total Bilirubin AST ALT Alkaline Phosphatase Ammonia Total Protein Albumin TSH MTS Gel Crossmatch See Detail See Detail Imaging: Abdomen/Bladder Ultrasound 05/05/18 00:00 CONCLUSION: 1. Kidneys are slightly echogenic which can be seen with medical renal disease. 2. Minimal ascites. Head CT 05/05/18 00:00 CONCLUSION: 1. Large hypodense area in the right cerebellum characteristic of an infarct. Age is uncertain. MRI should be considered for further evaluation. 2. No evidence of supratentorial acute infarct, hemorrhage, mass or edema. 3. 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 Chest X-Ray 05/06/18 06:00 CONCLUSION: Slight improvement of bilateral patchy airspace disease. Objective Remarks: GENERAL: 82-year-old male currently orotracheally intubated in place SKIN: Warm and dry. Small abrasion over right knee without active bleeding HEAD: Atraumatic. Normocephalic. EYES: Pupils equal and round. No scleral icterus. No injection or drainage. ENT: No nasal bleeding or discharge. Mucous membranes pink and moist. NECK: Trachea midline. No JVD. CARDIOVASCULAR: Tachycardic, RR. S1, S2 predose for without murmur RESPIRATORY: Coarse rhonchorous breath sounds appreciated anteriorly and posteriorly. No wheezing. Breath sounds equal bilaterally. GASTROINTESTINAL: Abdomen soft, non-tender, nondistended. Hypoactive bowel sounds appreciated MUSCULOSKELETAL: Extremities with trace bilateral lower extremity edema. NEUROLOGICAL: Sedated and intubated Assessment and Plan - Assessment and Plan Plan: NEURO/PSYCH: Acute metabolic encephalopathy CT brain: Large hypodense area in the right cerebellum characteristic of an infarct. Age is uncertain. No evidence of supratentorial acute infarct, hemorrhage, mass or edema. 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 MRI brain ordered patient is however unstable for MRI brain Neuro eval/ EEG 05/05: Moderate encephalopathy, no epileptiform features Currently on midazolam drip at 5 mg an hour. Daily sedation vacation change to Fentanyl infusion given his renal failure. Goal of RA SS of -2 Acetaminophen 650 mg by tube every 6 hours. As needed fever RESP: Acute hypoxemic respiratory failure COPD with exacerbation Pulmonary edema Probable healthcare associated pneumonia -PRVC/AC 18/550/1.1/, increase RR 20, TV 600 Albuterol/ipratropium aerosols every 4 hours with albuterol aerosols every 2 hours as needed for dyspnea Ventilator bundle Spontaneous breathing trials when clinically indicated CXR: B/l patchy airspace disease CV: NSTEMI Cardiogenic/Septic shock Pulmonary edema Acute systolic heart failure -Flowtrack monitoring of cardiac index and output. -Continue with pressors ( Levophed, Vasopressin, add Neosyn)keep MAP> 65mmHg Stress dose steroids- HC 50mg IV Q6 -2D echocardiogram left ventricular systolic function is probably moderate-to- severly reduced with an estimated ejection fraction in the range of 35-40%. There is severe hypokinesis of the mid to distal septal, mid to distal anterior and apical garcia. Normal left ventricular size. 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 Hold diuretics given worsening renal function. ID: Severe sepsis Probable HCAP -Continue with abx ( Vanco, Zosyn), monitor for signs of infections ( Fever, WBC ) Pertinent cultures 05/04 -blood cultures 2 -NGTD 05/04 -UA -pending 05/04 -sputum -nl resp lee HEME: Leukocytosis Normocytic anemia -Monitor CBC, CMP -Transfuse 2u PRBC for Hgb 6.6 ENDO: Hyperglycemia/uncontrolled diabetes -SSI medium scale with accuchecks Q4 -On Levemir 10u BID MSK: Recent right IM hip nailing by Dr. Bryan Weaver 05/11 Physical therapy evaluate and treat PROPH: -Bilateral lower extremity SCDs. IV heparin infusion, IV famotidine LINES: Left subclavian central line placed 05/04/2018. Consult palliative care to asses with goals of care CCT 40mins
--- NOTE | 2018-05-06 08:05 | P.PNCA ---
Subjective Interval history: Intubated. Sedated. Physical Exam Vital signs: Vital Signs 05/05/18 08:00 05/05/18 09:00 05/05/18 11:11 Temperature Pulse Rate 109 H 109 H 103 H Respiratory Rate 24 Blood Pressure Pulse Oximetry 96 100 05/05/18 12:00 05/05/18 13:30 05/05/18 16:00 Temperature 99.4 F 99.4 F Pulse Rate 108 H 115 H Respiratory Rate 16 16 Blood Pressure 93/51 L 93/51 L Pulse Oximetry 100 98 05/05/18 16:10 05/05/18 19:09 05/05/18 20:00 Temperature 99.9 F H Pulse Rate 111 H 116 H Respiratory Rate 28 H 23 26 H Blood Pressure 83/52 L Pulse Oximetry 99 100 100 05/05/18 23:43 05/06/18 00:00 05/06/18 03:46 Temperature 99.3 F Pulse Rate 113 H 111 H 105 H Respiratory Rate 23 25 H 26 H Blood Pressure 80/53 L Pulse Oximetry 100 100 05/06/18 04:00 05/06/18 07:37 05/06/18 07:38 Temperature 99.6 F Pulse Rate 124 H 120 H Respiratory Rate 26 H 26 H 25 H Blood Pressure 69/38 L Pulse Oximetry 98 Intake & Output 05/05/18 05/06/18 05/06/18 18:59 06:59 18:59 Intake Total 650 / 650 919 / 919 Output Total 275 / 275 5 / 5 Balance 375 / 375 914 / 914 Weight 98 kg Intake: IV 650 / 650 750 / 750 NovoLIN R (IV Infusion) 100 100 / 100 UNIT In NS Inj 99 ML @ Per Protocol IV.CONT TITRATE PRN Rx #:[id number] Versed Inj 50 mg In 50 ml @ 2 100 / 100 50 / 50 MG/HR 2 mls/hr IV.CONT TITRATE PRN Rx#:[id number] Flexbumin 25% Inj 100 ML @ 60 200 / 200 mls/hr IV.SIG Q12H TAMMY Rx#: [id number] Levophed Inj 4 MG In NS Inj 246 250 / 250 500 / 500 ML @ 2 MCG/MIN 7.5 mls/hr IV. SIG TITRATE PRN Rx#:[id number] Zosyn 3.375 GM Premix 50 ML @ 100 / 100 100 / 100 100 mls/hr IV.SIG Q6H TAMMY Rx#: [id number] Tube Feeding 89 / Tube Irrigant 80 / 80 Intake (Blood Product) Amt 0 / 0 Rbc As-3 Leukoreduced Unit 0 / 0 [id number] Output: Urine Amount (Catheter) 275 / 275 5 / 5 Indwelling Urethral Catheter 275 / 275 5 / 5 Other: Date of Last Bowel Movement 05/05/18 05/05/18 - Routine Neck Exam Absent: JVD - Routine Respiratory Exam Comments: Lungs clear anteriorly. - Routine Cardiovascular Exam Present: tachycardia. Absent: murmur, S3 - Routine Abdominal Exam Present: soft, normoactive bowel sounds. Absent: organomegaly - Routine Extremities Exam Comments: SCD's in place - Urinary Catheter Management Indwelling Urethral Catheter Cath placed during this visit: yes Reason for continuing: Acute urinary retention Insertion date: 05/04/18 Insertion time: 11:35 Assessment and Plan - Assessment (1) NSTEMI (non-ST elevated myocardial infarction) Code(s): I21.4 - Non-ST elevation (NSTEMI) myocardial infarction Status: Deleted Plan: Probable acute or subacute NSTEMI. Remains on ventilatory and pressor support. Echo shows EF ~35-40% with suggestion of LAD territory infarction. Patient not candidate for invasive cardiac evaluation with his renal insufficiency, anemia. BP's still too low for beta christopher. Not much else to offer from cardiac standpoint. Will f/u periodically. (2) Congestive heart failure Code(s): I50.9 - Heart failure, unspecified Status: Acute Plan: Remains on ventilatory support. EF ~35-40% by echo. BP's too low for beta christopher. No YUNG-I or ARB with CRI. Chest x-ray possibly slightly improved. Recommend consider resume IV furosemide. (3) Paroxysmal atrial fibrillation Code(s): I48.0 - Paroxysmal atrial fibrillation Status: Acute Plan: Paroxysms of atrial fibrillation this morning with rapid rates. Currently in sinus tachycardia. Recommend consider IV Amiodarone if he has recurrent atrial fib. Poor candidate for anticoagulation therapy. - Plan Code Status: full code (2) Congestive heart failure Qualifiers: Heart failure type: systolic Heart failure chronicity: acute Qualified Code( s): I50.21 - Acute systolic (congestive) heart failure
[2018-05-06] MEDS ORDERED: Phenylephrine Inj 160 MG in Dextrose 5% in Water Inj 484 ML IV.CONT PRN ×2 (08:21)
[2018-05-06] MEDS ORDERED: Amiodarone Inj 150 MG in Dextrose 5% in Water Inj 97 ML IV.SIG ONE ×2 (08:30)
[2018-05-06] MEDS ORDERED: Hydrocortisone Sod Succinate 100 MG Vial IV.SIG ONE (08:30)
[2018-05-06] MEDS: Insulin NovoLOG Aspart Correctional Sugar Inj SQ SCH ×5 (08:52→23:40)
[2018-05-06] MEDS: Senna/Docusate Sodium 8.6/50 MG Tablet PO SCH ×2 (08:53→20:29)
[2018-05-06] MEDS: Insulin Detemir Inj 1,000 UNIT/10 ML Vial SQ SCH ×2 (08:54→20:28)
[2018-05-06] MEDS: SODIUM BICARBONATE IV.SIG SCH ×2 (09:02→18:08)
[2018-05-06] MEDS: WATER FOR INJ IV.SIG SCH ×2 (09:02→18:08)
[2018-05-06] MEDS: STERILE IV.SIG SCH ×2 (09:02→18:08)
[2018-05-06 10:18] LABS: ABG PCO2 23 mmHg (38-42); ABG PO2 80 mmHG (61-120)
[2018-05-06] MEDS: Amiodarone Inj 450 MG in Sodium Chlor 0.9% Inj 241 ML IV.CONT SCH ×2 (10:18→18:44)
--- NOTE | 2018-05-06 10:48 | P.CONPAL ---
Consult Service: Palliative Care Requesting Physician: Kayla Goncalves Reason for Consult: a. To assist with evaluation and management of symptoms including: dyspnea, pain. b. To assist medical decision maker(s) with: better understanding of current medical conditions; weighing benefits/burdens of medical treatment options; making medical treatment decisions. Primary Care Provider: Diogo Carr MD History of Present Illness History of Present Illness: Mr. Jerome is an 82 year old male with past medical history of type II diabetes, hyperlipidemia, oxygen dependent COPD (4LPM), chronic kidney disease, BPH and hypothyroidism. Patient was living at home, had a right hip fracture post surgery and DC to [facility] rehab on May 03, 2018. Patient presented to [facility] emergency department from [facility] for evaluation of hyperglycemia, hypoxia and hypotension. Upon EMS arrival to the facility the patient was found to have an oxygen saturation in the 80's required oxygen via non-rebreather to maintain sats. Initial emergency room evaluation revealed: * VS: temp 100.2, pulse 110, blood pressure 88/55 * WBC 14.6, hemoglobin 7.9, hematocrit 23.9, platelets 298 * Sodium 136, potassium 5.1, chloride 106, carbon dioxide 17.2, BUN 77, creatinine 2.99, GFR 20, glucose 348 * Total bilirubin 0.9, AST 92, ALT 30, alk phos 98 * Total creatine kinase 596, CK-MB 21.3, troponin 5.01 * BNP PMFSH - History History Provided By: Family Member - Medical / Surgical Hx Neg / Unobtainable Medical Problems Denied: Unable to Obtain - Medical History Medical History: Medical History (Last Reviewed 05/05/18 @ 11:03 by Karo Blood) Diabetes - Surgical History Surgical History: Surgical History (Last Reviewed 04/27/18 @ 09:14 by Craig Smith) Amputated toe of left foot - Family History Family History: Family History (Last Updated 04/27/18 @ 00:44 by ОЛЕГ Ding) Father Prostate cancer - Tobacco History Second Hand Smoke Exposure: Yes Tobacco Use In Past 30 Days: Yes Smoking Status: Current every day smoker Tobacco Type: Cigarettes Cigarettes Per Day: 2 - Alcohol History How Often Do You Have a Drink Containing Alcohol: Never - Substance Use History Substance History: No History of Abuse - Travel History Recent Travel in the [place] Within the Last 8 Weeks: No Recent Travel Out of the Country Within the Last 8 Weeks: No - Immunization History Tetanus Immunization: Unsure Hx Influenza Vaccine This Season: Yes Medications and Allergies Active Medications: Active Medications Acetaminophen (Tylenol Liq) 650 mg PO Q6H PRN PRN Reason: FEVER Al Hydroxide/Mg Hydroxide (Milk Of Magnesia Liq) 30 ml PO Q12H PRN PRN Reason: Mild Constipation Albuterol (Albuterol Neb (Prn)) 2.5 mg NEB Q2HR NEB PRN PRN Reason: SHORTNESS OF BREATH/WHEEZING Albuterol (Duoneb Neb (Sohail)) 1 ampul NEB Q4HR NEB [facility] Last Admin: 05/06/18 07:36 Dose: 1 ampul Artificial Tears (Genteal Severe Dry Eye Relief 0.3% Opth Gel) 1 drops EACH EYE Q8H [facility] Last Admin: 05/06/18 01:34 Dose: 1 drops Aspirin (Aspirin Chew) 81 mg PO BID [facility] Last Admin: 05/06/18 08:53 Dose: 81 mg Atorvastatin Calcium (Lipitor) 40 mg PO HS [facility] Last Admin: 05/05/18 20:52 Dose: 40 mg Chlorhexidine Gluconate (Chlorhexidine 2% Cloth) 3 pack TOPICAL DAILY@0400 [facility] Stop: 05/10/18 03:59 Last Admin: 05/06/18 04:00 Dose: 3 pack Chlorhexidine Gluconate (Chlorhexidine 2% Cloth) 1 pack TOPICAL DAILY@0400 PRN PRN Reason: Extra cloth needed Stop: 05/10/18 03:59 Chlorhexidine Gluconate (Peridex 0.12% Oral Kit) 15 ml OROPHARYNG BID@0800, 2000 [facility] Last Admin: 05/06/18 07:31 Dose: Not Given Dextrose (D50w Vial) 50 ml IV.PUSH UNSCH PRN PRN Reason: PER HYPOGLYCEMIA PROTOCOL Glucagon (Glucagon Inj) 1 mg OTHER PRN PRN PRN Reason: for Hypoglycemia Protocol Hydrocortisone Sodium Succinate (Solucortef Inj) 50 mg IV.PUSH Q6HR [facility] Heparin Sodium/Dextrose (Heparin/D5w 25,000 U/250 Ml) 25,000 unit in 250 mls @ 10 mls/hr IV.CONT TITRATE PRN; Protocol PRN Reason: Per Protocol Midazolam HCl (Versed Inj) 50 mg in 50 mls @ 2 mls/hr IV.CONT TITRATE PRN; Protocol PRN Reason: Per Protocol Last Titration: 05/06/18 09:03 Dose: Infused Norepinephrine Bitartrate 4 mg (/ Sodium Chloride) 250 mls @ 7.5 mls/hr IV.SIG TITRATE PRN; Protocol PRN Reason: Per Protocol Last Admin: 05/06/18 06:04 Dose: 20 mcg/min, 75 mls/hr Fentanyl (Fentanyl 10 Mcg/Ml Premix Drip) 2,500 mcg in 250 mls @ 5 mls/hr IV.SIG TITRATE PRN; Protocol PRN Reason: Per Protocol Last Admin: 05/06/18 09:07 Dose: 50 mcg/hr, 5 mls/hr Piperacillin/Tazobactam/Dextrose (Zosyn 3.375 Gm Premix) 50 mls @ 100 mls/hr IV.SIG Q6H [facility] Last Admin: 05/06/18 04:42 Dose: 100 mls/hr Pharmacy Profile Note (Vancomycin Consult Pharmacy) 0 mls @ 0 mls/hr OTHER UNSCH [facility] Vasopressin 40 unit/ Dextrose 100 mls @ 6 mls/hr IV.CONT CONT SOHAIL; Protocol Dobutamine HCl 500 mg/ (Dextrose) 250 mls @ 7.12 mls/hr IV.CONT .Q24H [facility] Last Admin: 05/06/18 07:25 Dose: Not Given Amiodarone HCl 450 mg/ Sodium (Chloride) 250 mls @ 33.33 mls/hr IV.CONT .Q7H31M SOHAIL; Protocol Sodium Bicarbonate 150 meq/ (Sterile Water) 1,150 mls @ 150 mls/hr IV.SIG CONT SOHAIL Last Admin: 05/06/18 09:02 Dose: 150 mls/hr Phenylephrine HCl 160 mg/ (Dextrose) 500 mls @ 7.5 mls/hr IV.CONT TITRATE PRN; Protocol PRN Reason: Per Protocol Last Admin: 05/06/18 09:02 Dose: 40 mcg/min, 7.5 mls/hr Insulin Aspart (Novolog Insulin Suppl Scale Inj) 0 unit SQ Q4HR SOHAIL; Protocol Last Admin: 05/06/18 08:52 Dose: 10 unit Insulin Detemir (Levemir Inj) 10 unit SQ BID [facility] Last Admin: 05/06/18 08:54 Dose: 10 unit Lactulose (Lactulose Liq) 30 ml PO DAILY PRN PRN Reason: SEVERE CONSITIPATION Lansoprazole (Prevacid Solutab) 30 mg NG/OG DAILY [facility] Last Admin: 05/06/18 08:53 Dose: 30 mg Senna/Docusate Sodium (Roxy-Colace) 1 tab PO BID [facility] Last Admin: 05/06/18 08:53 Dose: 1 tab Sodium Chloride (Ns Flush) 2 ml IV.FLUSH BID [facility] Last Admin: 05/05/18 20:53 Dose: 2 ml Sodium Chloride (Ns Flush) 2 ml IV.FLUSH PRN PRN PRN Reason: FLUSH AFTER USING IV ACCESS Tamsulosin HCl (Flomax) 0.4 mg PO DAILY [facility] Last Admin: 05/06/18 08:53 Dose: 0.4 mg Terbutaline Sulfate (Brethine Inj) 1 mg SQ UNSCH PRN PRN Reason: For Extravasation Allergies Allergy/AdvReac Type Severity Reaction Status Date / Time No Known Allergies Allergy Unverified 05/04/18 09:31 Home Medications Medication Instructions Recorded Confirmed Type glipizide 5 mg PO BID 04/26/18 05/04/18 History acetaminophen 650 mg PO Q4H PRN 05/04/18 05/04/18 History aspirin 81 mg PO BID 05/04/18 05/04/18 History hydrocodone-acetaminophen 1 tab PO Q6H PRN 05/04/18 05/04/18 History insulin aspart U-100 [Novolog 20 unit SUB-Q ONCE 05/04/18 05/04/18 History U-100 Insulin aspart] magnesium hydroxide [Milk of 30 ml PO DAILY PRN 05/04/18 05/04/18 History Magnesia] sennosides 17.2 mg PO DAILY 05/04/18 05/04/18 History Advance Directives Living Will: No Physical Exam Vital Signs: Vital Signs - 24 hr 05/05/18 11:11 05/05/18 12:00 05/05/18 13:30 Temperature 99.4 F Pulse Rate 103 H 108 H Respiratory Rate 24 16 Blood Pressure 93/51 L Pulse Oximetry 100 100 05/05/18 16:00 05/05/18 16:10 05/05/18 19:09 Temperature 99.4 F Pulse Rate 115 H 111 H Respiratory Rate 16 28 H 23 Blood Pressure 93/51 L Pulse Oximetry 98 99 100 05/05/18 20:00 05/05/18 23:43 05/06/18 00:00 Temperature 99.9 F H 99.3 F Pulse Rate 116 H 113 H 111 H Respiratory Rate 26 H 23 25 H Blood Pressure 83/52 L 80/53 L Pulse Oximetry 100 100 100 05/06/18 03:46 05/06/18 04:00 05/06/18 07:37 Temperature 99.6 F Pulse Rate 105 H 124 H 120 H Respiratory Rate 26 H 26 H 26 H Blood Pressure 69/38 L Pulse Oximetry 98 05/06/18 07:38 05/06/18 08:00 05/06/18 09:00 Temperature 98.1 F Pulse Rate 118 H 109 H Respiratory Rate 25 H 22 Blood Pressure 76/60 L Pulse Oximetry 97 05/06/18 09:54 Temperature 97.9 F Pulse Rate 106 H Respiratory Rate 24 Blood Pressure 100/56 L Pulse Oximetry 96 I&O: Intake & Output 05/04/18 05/05/18 05/06/18 05/07/18 06:59 06:59 06:59 06:59 Intake Total 1150 / 1150 1569 / 1569 450 / 450 Output Total 275 / 275 280 / 280 Balance 875 / 875 1289 / 1289 450 / 450 Weight 95 kg 98 kg Physical Exam: CONSTITUTIONAL/GENERAL: This is an adequately nourished patient, in no apparent distress. TUBES/LINES/DRAINS: SKIN: No jaundice, rashes, or lesions. Ecchymoses on upper extremities. No wounds seen anteriorly. Skin temperature appropriate. Not diaphoretic. HEAD: Atraumatic. Normocephalic. EYES: Pupils equal and round and reactive. Extraocular motions intact. No scleral icterus. No injection or drainage. Fundi not examined. ENT: Hearing grossly normal. Nose without bleeding or purulent drainage. Throat without visible erythema, exudates, masses, or lesions. NECK: Trachea midline. Supple, nontender. No palpable thyroid enlargement or nodularity. CARDIOVASCULAR: Regular rate and rhythm without murmurs, gallops, or rubs. No JVD. Peripheral pulses symmetric. RESPIRATORY/CHEST: Symmetric, unlabored respirations. Clear to auscultation. Breath sounds equal bilaterally. No wheezes, rales, or rhonchi. GASTROINTESTINAL: Abdomen soft, non-tender, nondistended. No hepato-splenomegaly , or palpable masses. No guarding. Bowel sounds present. GENITOURINARY: Without palpable bladder distension. Jean catheter in place. MUSCULOSKELETAL: Extremities without clubbing, cyanosis, or edema. No joint tenderness or effusion noted. No calf tenderness. No mottling or clubbing. LYMPHATICS: No palpable cervical or supraclavicular adenopathy. NEUROLOGICAL: Awake and alert. Motor and sensory grossly within normal limits. Follows commands. Cognitively sharp. Moves all extremities. PSYCHIATRIC: No obvious anxiety/depression. no apparent hallucinations or other psychotic thought process. Diagnostic Tests Laboratory: Laboratory Results - last 72 hr 05/04/18 05/04/18 05/04/18 07:34 07:40 07:40 WBC RBC Hgb Hct MCV MCH MCHC RDW Plt Count MPV Prelim Diff (Auto) Neut % (Auto) Lymph % (Auto) Banner % (Auto) Eos % (Auto) Baso % (Auto) Neut # (Auto) Lymph # (Auto) Banner # (Auto) Eos # (Auto) Baso # (Auto) WBC Differential Diff Scan Differential Comment PT INR APTT Puncture Site Patient Temperature O2 Saturation ABG pH ABG pCO2 ABG pO2 ABG HCO3 ABG O2 Content ABG Base Excess ABG Methemoglobin Yannick Test Hemoglobin Carboxyhemoglobin O2 Delivery Device Liter Flow Vent Setting Inspired O2 Critical Value Sodium 136 Potassium 5.1 Chloride 106 Carbon Dioxide 17.2 L Anion Gap 13 BUN 77 H Creatinine 2.99 H Estimated GFR 20 L POC Glucose 348 H Random Glucose 341 H Hemoglobin A1c Lactic Acid Calcium 8.4 L Prot Corrected Calcium Phosphorus Magnesium Total Bilirubin 0.9 AST 92 H ALT 30 Alkaline Phosphatase 98 Ammonia Total Creatine Kinase 596 H CK-MB (CK-2) 21.3 H CK-MB (CK-2) % 3.6 Troponin I 5.01 H* B-Natriuretic Peptide Total Protein 5.8 L Albumin 2.1 L Triglycerides Cholesterol LDL Cholesterol, Calc HDL Cholesterol Cholesterol/HDL Ratio Beta-Hydroxybutyric Acd TSH Urine Color Urine Clarity Urine pH Ur Specific Ponce Urine Protein Urine Glucose (UA) Urine Ketones Urine Occult Blood Urine Nitrate Urine Bilirubin Urine Urobilinogen Ur Leukocyte Esterase Urine RBC Urine WBC Ur Squamous Epith Cells Amorphous Sediment Urine Bacteria Hyaline Casts Urine Mucus Micro UA Comment Urine Culture Comments Urine Eosinophils Nasal Screen MRSA (PCR) Blood Type Antibody Screen MTS Gel Crossmatch 05/04/18 05/04/18 05/04/18 07:40 08:30 08:30 WBC 14.6 H RBC 2.53 L Hgb 7.9 L Hct 23.9 L MCV 94.4 MCH 31.2 MCHC 33.1 RDW 13.0 Plt Count 298 MPV 7.9 Prelim Diff (Auto) Neut % (Auto) 85.0 H Lymph % (Auto) 6.6 L Banner % (Auto) 8.0 Eos % (Auto) 0.1 Baso % (Auto) 0.3 Neut # (Auto) 12.4 H Lymph # (Auto) 1.0 Banner # (Auto) 1.2 H Eos # (Auto) 0.0 Baso # (Auto) 0.0 WBC Differential . Diff Scan Differential Comment Auto diff final PT 10.7 INR 1.1 APTT 24.3 Puncture Site Patient Temperature O2 Saturation ABG pH ABG pCO2 ABG pO2 ABG HCO3 ABG O2 Content ABG Base Excess ABG Methemoglobin Yannick Test Hemoglobin Carboxyhemoglobin O2 Delivery Device Liter Flow Vent Setting Inspired O2 Critical Value Sodium Potassium Chloride Carbon Dioxide Anion Gap BUN Creatinine Estimated GFR POC Glucose Random Glucose Hemoglobin A1c Lactic Acid 2.7 H Calcium Prot Corrected Calcium Phosphorus Magnesium Total Bilirubin AST ALT Alkaline Phosphatase Ammonia Total Creatine Kinase CK-MB (CK-2) CK-MB (CK-2) % Troponin I B-Natriuretic Peptide Total Protein Albumin Triglycerides Cholesterol LDL Cholesterol, Calc HDL Cholesterol Cholesterol/HDL Ratio Beta-Hydroxybutyric Acd TSH Urine Color Urine Clarity Urine pH Ur Specific Ponce Urine Protein Urine Glucose (UA) Urine Ketones Urine Occult Blood Urine Nitrate Urine Bilirubin Urine Urobilinogen Ur Leukocyte Esterase Urine RBC Urine WBC Ur Squamous Epith Cells Amorphous Sediment Urine Bacteria Hyaline Casts Urine Mucus Micro UA Comment Urine Culture Comments Urine Eosinophils Nasal Screen MRSA (PCR) Blood Type Antibody Screen MTS Gel Crossmatch 05/04/18 05/04/18 05/04/18 08:30 08:48 10:30 WBC RBC Hgb Hct MCV MCH MCHC RDW Plt Count MPV Prelim Diff (Auto) Neut % (Auto) Lymph % (Auto) Banner % (Auto) Eos % (Auto) Baso % (Auto) Neut # (Auto) Lymph # (Auto) Banner # (Auto) Eos # (Auto) Baso # (Auto) WBC Differential Diff Scan Differential Comment PT INR APTT Puncture Site Right radial Patient Temperature 98.6 O2 Saturation 88 L* ABG pH 7.29 L* ABG pCO2 33 L ABG pO2 68 ABG HCO3 15 L* ABG O2 Content 10.2 L ABG Base Excess -10.2 L ABG Methemoglobin 0.8 Yannick Test Present Hemoglobin 8.2 L Carboxyhemoglobin 1.9 O2 Delivery Device Simple mask Liter Flow 6.00 Vent Setting Not Reportable Inspired O2 Critical Value Yes Sodium Potassium Chloride Carbon Dioxide Anion Gap BUN Creatinine Estimated GFR POC Glucose Random Glucose Hemoglobin A1c Lactic Acid Calcium Prot Corrected Calcium Phosphorus Magnesium Total Bilirubin AST ALT Alkaline Phosphatase Ammonia Total Creatine Kinase CK-MB (CK-2) CK-MB (CK-2) % Troponin I B-Natriuretic Peptide 2359 H Total Protein Albumin Triglycerides Cholesterol LDL Cholesterol, Calc HDL Cholesterol Cholesterol/HDL Ratio Beta-Hydroxybutyric Acd TSH Urine Color Urine Clarity Urine pH Ur Specific Ponce Urine Protein Urine Glucose (UA) Urine Ketones Urine Occult Blood Urine Nitrate Urine Bilirubin Urine Urobilinogen Ur Leukocyte Esterase Urine RBC Urine WBC Ur Squamous Epith Cells Amorphous Sediment Urine Bacteria Hyaline Casts Urine Mucus Micro UA Comment Urine Culture Comments Urine Eosinophils Nasal Screen MRSA (PCR) Blood Type A Positive Antibody Screen Negative MTS Gel Crossmatch 05/04/18 05/04/18 05/04/18 10:31 11:35 11:48 WBC RBC Hgb Hct MCV MCH MCHC RDW Plt Count MPV Prelim Diff (Auto) Neut % (Auto) Lymph % (Auto) Banner % (Auto) Eos % (Auto) Baso % (Auto) Neut # (Auto) Lymph # (Auto) Banner # (Auto) Eos # (Auto) Baso # (Auto) WBC Differential Diff Scan Differential Comment PT INR APTT Puncture Site Right radial Patient Temperature 98.6 O2 Saturation 89 L* ABG pH 7.12 L* ABG pCO2 49 H ABG pO2 81 ABG HCO3 15 L* ABG O2 Content 10.8 L ABG Base Excess -12.6 L ABG Methemoglobin 0.6 Yannick Test Present Hemoglobin 8.5 L Carboxyhemoglobin 1.3 O2 Delivery Device Vent Liter Flow Vent Setting [id number]/500/[id number] Inspired O2 100 Critical Value Yes Sodium Potassium Chloride Carbon Dioxide Anion Gap BUN Creatinine Estimated GFR POC Glucose 341 H Random Glucose Hemoglobin A1c Lactic Acid Calcium Prot Corrected Calcium Phosphorus Magnesium Total Bilirubin AST ALT Alkaline Phosphatase Ammonia Total Creatine Kinase CK-MB (CK-2) CK-MB (CK-2) % Troponin I B-Natriuretic Peptide Total Protein Albumin Triglycerides Cholesterol LDL Cholesterol, Calc HDL Cholesterol Cholesterol/HDL Ratio Beta-Hydroxybutyric Acd TSH Urine Color Kelsey Urine Clarity Hazy H Urine pH 5.0 Ur Specific Ponce 1.020 Urine Protein 30 H Urine Glucose (UA) 50 Urine Ketones Negative Urine Occult Blood Negative Urine Nitrate Negative Urine Bilirubin Negative Urine Urobilinogen Less than 2 Ur Leukocyte Esterase Negative Urine RBC Less than 1 Urine WBC 2 Ur Squamous Epith Cells <1 Amorphous Sediment Rare H Urine Bacteria Rare H Hyaline Casts 25 Urine Mucus Few H Micro UA Comment Cath-culture ind Urine Culture Comments Cath-cult indicated Urine Eosinophils Nasal Screen MRSA (PCR) Blood Type Antibody Screen MTS Gel Crossmatch 05/04/18 05/04/18 05/04/18 12:15 12:35 12:35 WBC RBC Hgb Hct MCV MCH MCHC RDW Plt Count MPV Prelim Diff (Auto) Neut % (Auto) Lymph % (Auto) Banner % (Auto) Eos % (Auto) Baso % (Auto) Neut # (Auto) Lymph # (Auto) Banner # (Auto) Eos # (Auto) Baso # (Auto) WBC Differential Diff Scan Differential Comment PT 10.9 INR 1.1 APTT 25.3 Puncture Site Patient Temperature O2 Saturation ABG pH ABG pCO2 ABG pO2 ABG HCO3 ABG O2 Content ABG Base Excess ABG Methemoglobin Yannick Test Hemoglobin Carboxyhemoglobin O2 Delivery Device Liter Flow Vent Setting Inspired O2 Critical Value Sodium Potassium Chloride Carbon Dioxide Anion Gap BUN Creatinine Estimated GFR POC Glucose Random Glucose Hemoglobin A1c Lactic Acid 4.3 H* Calcium Prot Corrected Calcium Phosphorus Magnesium Total Bilirubin AST ALT Alkaline Phosphatase Ammonia Total Creatine Kinase CK-MB (CK-2) CK-MB (CK-2) % Troponin I 5.76 H* B-Natriuretic Peptide Total Protein Albumin Triglycerides Cholesterol LDL Cholesterol, Calc HDL Cholesterol Cholesterol/HDL Ratio Beta-Hydroxybutyric Acd TSH Urine Color Urine Clarity Urine pH Ur Specific Ponce Urine Protein Urine Glucose (UA) Urine Ketones Urine Occult Blood Urine Nitrate Urine Bilirubin Urine Urobilinogen Ur Leukocyte Esterase Urine RBC Urine WBC Ur Squamous Epith Cells Amorphous Sediment Urine Bacteria Hyaline Casts Urine Mucus Micro UA Comment Urine Culture Comments Urine Eosinophils Nasal Screen MRSA (PCR) Blood Type Antibody Screen MTS Gel Crossmatch 05/04/18 05/04/18 05/04/18 12:35 14:40 14:58 WBC RBC Hgb Hct MCV MCH MCHC RDW Plt Count MPV Prelim Diff (Auto) Neut % (Auto) Lymph % (Auto) Banner % (Auto) Eos % (Auto) Baso % (Auto) Neut # (Auto) Lymph # (Auto) Banner # (Auto) Eos # (Auto) Baso # (Auto) WBC Differential Diff Scan Differential Comment PT INR APTT Puncture Site Right radial Patient Temperature 98.6 O2 Saturation 96 ABG pH 7.23 L* ABG pCO2 37 L ABG pO2 123 H ABG HCO3 15 L* ABG O2 Content 11.6 L ABG Base Excess -10.9 L ABG Methemoglobin 0.7 Yannick Test Present Hemoglobin 8.4 L Carboxyhemoglobin 1.4 O2 Delivery Device Vent Liter Flow Vent Setting [id number] Inspired O2 100 Critical Value Yes Sodium Potassium Chloride Carbon Dioxide Anion Gap BUN Creatinine Estimated GFR POC Glucose Random Glucose Hemoglobin A1c Lactic Acid Calcium Prot Corrected Calcium Phosphorus Magnesium Total Bilirubin AST ALT Alkaline Phosphatase Ammonia Total Creatine Kinase CK-MB (CK-2) CK-MB (CK-2) % Troponin I 5.87 H* B-Natriuretic Peptide Total Protein Albumin Triglycerides Cholesterol LDL Cholesterol, Calc HDL Cholesterol Cholesterol/HDL Ratio Beta-Hydroxybutyric Acd 0.79 H TSH Urine Color Urine Clarity Urine pH Ur Specific Ponce Urine Protein Urine Glucose (UA) Urine Ketones Urine Occult Blood Urine Nitrate Urine Bilirubin Urine Urobilinogen Ur Leukocyte Esterase Urine RBC Urine WBC Ur Squamous Epith Cells Amorphous Sediment Urine Bacteria Hyaline Casts Urine Mucus Micro UA Comment Urine Culture Comments Urine Eosinophils Nasal Screen MRSA (PCR) Blood Type Antibody Screen MTS Gel Crossmatch 05/04/18 05/04/18 05/04/18 14:58 14:58 15:35 WBC 16.6 H RBC 2.73 L Hgb 8.4 L Hct 25.8 L MCV 94.7 MCH 30.9 MCHC 32.6 RDW 13.1 Plt Count 329 MPV 7.6 Prelim Diff (Auto) Neut % (Auto) Lymph % (Auto) Banner % (Auto) Eos % (Auto) Baso % (Auto) Neut # (Auto) Lymph # (Auto) Banner # (Auto) Eos # (Auto) Baso # (Auto) WBC Differential Diff Scan Differential Comment PT INR APTT 25.4 Puncture Site Patient Temperature O2 Saturation ABG pH ABG pCO2 ABG pO2 ABG HCO3 ABG O2 Content ABG Base Excess ABG Methemoglobin Yannick Test Hemoglobin Carboxyhemoglobin O2 Delivery Device Liter Flow Vent Setting Inspired O2 Critical Value Sodium Potassium Chloride Carbon Dioxide Anion Gap BUN Creatinine Estimated GFR POC Glucose Random Glucose Hemoglobin A1c Lactic Acid Calcium Prot Corrected Calcium Phosphorus Magnesium Total Bilirubin AST ALT Alkaline Phosphatase Ammonia Total Creatine Kinase CK-MB (CK-2) CK-MB (CK-2) % Troponin I B-Natriuretic Peptide Total Protein Albumin Triglycerides Cholesterol LDL Cholesterol, Calc HDL Cholesterol Cholesterol/HDL Ratio Beta-Hydroxybutyric Acd TSH Urine Color Urine Clarity Urine pH Ur Specific Ponce Urine Protein Urine Glucose (UA) Urine Ketones Urine Occult Blood Urine Nitrate Urine Bilirubin Urine Urobilinogen Ur Leukocyte Esterase Urine RBC Urine WBC Ur Squamous Epith Cells Amorphous Sediment Urine Bacteria Hyaline Casts Urine Mucus Micro UA Comment Urine Culture Comments Urine Eosinophils Nasal Screen MRSA (PCR) Mrsa detected Blood Type Antibody Screen MTS Gel Crossmatch 05/04/18 05/04/18 05/04/18 15:43 16:55 18:49 WBC RBC Hgb Hct MCV MCH MCHC RDW Plt Count MPV Prelim Diff (Auto) Neut % (Auto) Lymph % (Auto) Banner % (Auto) Eos % (Auto) Baso % (Auto) Neut # (Auto) Lymph # (Auto) Banner # (Auto) Eos # (Auto) Baso # (Auto) WBC Differential Diff Scan Differential Comment PT INR APTT Puncture Site Art line Patient Temperature 98.6 O2 Saturation 97 ABG pH 7.32 L ABG pCO2 35 L ABG pO2 240 H ABG HCO3 17 L ABG O2 Content 11.5 L ABG Base Excess -7.8 L ABG Methemoglobin 1.4 Yannick Test Present Hemoglobin 8.0 L Carboxyhemoglobin 1.1 O2 Delivery Device Ventilator Liter Flow Vent Setting 550/18/[id number] Inspired O2 100 Critical Value No Sodium Potassium Chloride Carbon Dioxide Anion Gap BUN Creatinine Estimated GFR POC Glucose 398 H 428 H Random Glucose Hemoglobin A1c Lactic Acid Calcium Prot Corrected Calcium Phosphorus Magnesium Total Bilirubin AST ALT Alkaline Phosphatase Ammonia Total Creatine Kinase CK-MB (CK-2) CK-MB (CK-2) % Troponin I B-Natriuretic Peptide Total Protein Albumin Triglycerides Cholesterol LDL Cholesterol, Calc HDL Cholesterol Cholesterol/HDL Ratio Beta-Hydroxybutyric Acd TSH Urine Color Urine Clarity Urine pH Ur Specific Ponce Urine Protein Urine Glucose (UA) Urine Ketones Urine Occult Blood Urine Nitrate Urine Bilirubin Urine Urobilinogen Ur Leukocyte Esterase Urine RBC Urine WBC Ur Squamous Epith Cells Amorphous Sediment Urine Bacteria Hyaline Casts Urine Mucus Micro UA Comment Urine Culture Comments Urine Eosinophils Nasal Screen MRSA (PCR) Blood Type Antibody Screen MTS Gel Crossmatch 05/04/18 05/04/18 05/04/18 19:39 19:57 20:35 WBC RBC Hgb Hct MCV MCH MCHC RDW Plt Count MPV Prelim Diff (Auto) Neut % (Auto) Lymph % (Auto) Banner % (Auto) Eos % (Auto) Baso % (Auto) Neut # (Auto) Lymph # (Auto) Banner # (Auto) Eos # (Auto) Baso # (Auto) WBC Differential Diff Scan Differential Comment PT INR APTT Puncture Site Patient Temperature O2 Saturation ABG pH ABG pCO2 ABG pO2 ABG HCO3 ABG O2 Content ABG Base Excess ABG Methemoglobin Yannick Test Hemoglobin Carboxyhemoglobin O2 Delivery Device Liter Flow Vent Setting Inspired O2 Critical Value Sodium 137 Potassium 4.6 Chloride 104 Carbon Dioxide 18.4 L Anion Gap 15 BUN 79 H Creatinine 3.33 H Estimated GFR 18 L POC Glucose 422 H 385 H Random Glucose 362 H Hemoglobin A1c Lactic Acid Calcium 8.5 Prot Corrected Calcium Phosphorus Magnesium Total Bilirubin 1.0 AST 147 H ALT 58 Alkaline Phosphatase 93 Ammonia Total Creatine Kinase CK-MB (CK-2) CK-MB (CK-2) % Troponin I B-Natriuretic Peptide Total Protein 6.1 L Albumin 2.2 L Triglycerides Cholesterol LDL Cholesterol, Calc HDL Cholesterol Cholesterol/HDL Ratio Beta-Hydroxybutyric Acd TSH Urine Color Urine Clarity Urine pH Ur Specific Ponce Urine Protein Urine Glucose (UA) Urine Ketones Urine Occult Blood Urine Nitrate Urine Bilirubin Urine Urobilinogen Ur Leukocyte Esterase Urine RBC Urine WBC Ur Squamous Epith Cells Amorphous Sediment Urine Bacteria Hyaline Casts Urine Mucus Micro UA Comment Urine Culture Comments Urine Eosinophils Nasal Screen MRSA (PCR) Blood Type Antibody Screen MTS Gel Crossmatch 05/04/18 05/04/18 05/04/18 21:33 22:34 23:36 WBC RBC Hgb Hct MCV MCH MCHC RDW Plt Count MPV Prelim Diff (Auto) Neut % (Auto) Lymph % (Auto) Banner % (Auto) Eos % (Auto) Baso % (Auto) Neut # (Auto) Lymph # (Auto) Banner # (Auto) Eos # (Auto) Baso # (Auto) WBC Differential Diff Scan Differential Comment PT INR APTT Puncture Site Patient Temperature O2 Saturation ABG pH ABG pCO2 ABG pO2 ABG HCO3 ABG O2 Content ABG Base Excess ABG Methemoglobin Yannick Test Hemoglobin Carboxyhemoglobin O2 Delivery Device Liter Flow Vent Setting Inspired O2 Critical Value Sodium Potassium Chloride Carbon Dioxide Anion Gap BUN Creatinine Estimated GFR POC Glucose 418 H 349 H 330 H Random Glucose Hemoglobin A1c Lactic Acid Calcium Prot Corrected Calcium Phosphorus Magnesium Total Bilirubin AST ALT Alkaline Phosphatase Ammonia Total Creatine Kinase CK-MB (CK-2) CK-MB (CK-2) % Troponin I B-Natriuretic Peptide Total Protein Albumin Triglycerides Cholesterol LDL Cholesterol, Calc HDL Cholesterol Cholesterol/HDL Ratio Beta-Hydroxybutyric Acd TSH Urine Color Urine Clarity Urine pH Ur Specific Ponce Urine Protein Urine Glucose (UA) Urine Ketones Urine Occult Blood Urine Nitrate Urine Bilirubin Urine Urobilinogen Ur Leukocyte Esterase Urine RBC Urine WBC Ur Squamous Epith Cells Amorphous Sediment Urine Bacteria Hyaline Casts Urine Mucus Micro UA Comment Urine Culture Comments Urine Eosinophils Nasal Screen MRSA (PCR) Blood Type Antibody Screen MTS Gel Crossmatch 05/05/18 05/05/18 05/05/18 00:36 01:45 02:37 WBC RBC Hgb Hct MCV MCH MCHC RDW Plt Count MPV Prelim Diff (Auto) Neut % (Auto) Lymph % (Auto) Banner % (Auto) Eos % (Auto) Baso % (Auto) Neut # (Auto) Lymph # (Auto) Banner # (Auto) Eos # (Auto) Baso # (Auto) WBC Differential Diff Scan Differential Comment PT INR APTT Puncture Site Patient Temperature O2 Saturation ABG pH ABG pCO2 ABG pO2 ABG HCO3 ABG O2 Content ABG Base Excess ABG Methemoglobin Yannick Test Hemoglobin Carboxyhemoglobin O2 Delivery Device Liter Flow Vent Setting Inspired O2 Critical Value Sodium Potassium Chloride Carbon Dioxide Anion Gap BUN Creatinine Estimated GFR POC Glucose 276 H 280 H 253 H Random Glucose Hemoglobin A1c Lactic Acid Calcium Prot Corrected Calcium Phosphorus Magnesium Total Bilirubin AST ALT Alkaline Phosphatase Ammonia Total Creatine Kinase CK-MB (CK-2) CK-MB (CK-2) % Troponin I B-Natriuretic Peptide Total Protein Albumin Triglycerides Cholesterol LDL Cholesterol, Calc HDL Cholesterol Cholesterol/HDL Ratio Beta-Hydroxybutyric Acd TSH Urine Color Urine Clarity Urine pH Ur Specific Ponce Urine Protein Urine Glucose (UA) Urine Ketones Urine Occult Blood Urine Nitrate Urine Bilirubin Urine Urobilinogen Ur Leukocyte Esterase Urine RBC Urine WBC Ur Squamous Epith Cells Amorphous Sediment Urine Bacteria Hyaline Casts Urine Mucus Micro UA Comment Urine Culture Comments Urine Eosinophils Nasal Screen MRSA (PCR) Blood Type Antibody Screen MTS Gel Crossmatch 05/05/18 05/05/18 05/05/18 03:33 04:15 04:15 WBC 12.8 H RBC 2.41 L Hgb 7.6 L Hct 22.3 L MCV 92.5 MCH 31.3 MCHC 33.9 RDW 12.9 Plt Count 312 MPV 7.1 Prelim Diff (Auto) Neut % (Auto) 89.0 H Lymph % (Auto) 4.6 L Banner % (Auto) 6.0 Eos % (Auto) 0.3 Baso % (Auto) 0.1 Neut # (Auto) 11.4 H Lymph # (Auto) 0.6 L Banner # (Auto) 0.8 Eos # (Auto) 0.0 Baso # (Auto) 0.0 WBC Differential . Diff Scan Differential Comment Auto diff final PT INR APTT Puncture Site Patient Temperature O2 Saturation ABG pH ABG pCO2 ABG pO2 ABG HCO3 ABG O2 Content ABG Base Excess ABG Methemoglobin Yannick Test Hemoglobin Carboxyhemoglobin O2 Delivery Device Liter Flow Vent Setting Inspired O2 Critical Value Sodium 147 H D Potassium 2.8 L* D Chloride 120 H D Carbon Dioxide 13.3 L Anion Gap 14 BUN 63 H Creatinine 2.33 H Estimated GFR 27 L POC Glucose 260 H Random Glucose 157 H D Hemoglobin A1c Lactic Acid Calcium 5.8 L* D Prot Corrected Calcium 7.2 L* Phosphorus 2.4 L Magnesium 2.3 Total Bilirubin 0.8 AST 79 H ALT 34 Alkaline Phosphatase 56 Ammonia Total Creatine Kinase CK-MB (CK-2) CK-MB (CK-2) % Troponin I B-Natriuretic Peptide Total Protein 4.1 L D Albumin 1.7 L Triglycerides Cholesterol LDL Cholesterol, Calc HDL Cholesterol Cholesterol/HDL Ratio Beta-Hydroxybutyric Acd TSH Urine Color Urine Clarity Urine pH Ur Specific Ponce Urine Protein Urine Glucose (UA) Urine Ketones Urine Occult Blood Urine Nitrate Urine Bilirubin Urine Urobilinogen Ur Leukocyte Esterase Urine RBC Urine WBC Ur Squamous Epith Cells Amorphous Sediment Urine Bacteria Hyaline Casts Urine Mucus Micro UA Comment Urine Culture Comments Urine Eosinophils Nasal Screen MRSA (PCR) Blood Type Antibody Screen MTS Gel Crossmatch 05/05/18 05/05/18 05/05/18 04:15 04:39 05:43 WBC RBC Hgb Hct MCV MCH MCHC RDW Plt Count MPV Prelim Diff (Auto) Neut % (Auto) Lymph % (Auto) Banner % (Auto) Eos % (Auto) Baso % (Auto) Neut # (Auto) Lymph # (Auto) Banner # (Auto) Eos # (Auto) Baso # (Auto) WBC Differential Diff Scan Differential Comment PT INR APTT Puncture Site Patient Temperature O2 Saturation ABG pH ABG pCO2 ABG pO2 ABG HCO3 ABG O2 Content ABG Base Excess ABG Methemoglobin Yannick Test Hemoglobin Carboxyhemoglobin O2 Delivery Device Liter Flow Vent Setting Inspired O2 Critical Value Sodium Potassium Chloride Carbon Dioxide Anion Gap BUN Creatinine Estimated GFR POC Glucose 255 H 239 H Random Glucose Hemoglobin A1c Lactic Acid 1.8 Calcium Prot Corrected Calcium Phosphorus Magnesium Total Bilirubin AST ALT Alkaline Phosphatase Ammonia Total Creatine Kinase CK-MB (CK-2) CK-MB (CK-2) % Troponin I B-Natriuretic Peptide Total Protein Albumin Triglycerides Cholesterol LDL Cholesterol, Calc HDL Cholesterol Cholesterol/HDL Ratio Beta-Hydroxybutyric Acd TSH Urine Color Urine Clarity Urine pH Ur Specific Ponce Urine Protein Urine Glucose (UA) Urine Ketones Urine Occult Blood Urine Nitrate Urine Bilirubin Urine Urobilinogen Ur Leukocyte Esterase Urine RBC Urine WBC Ur Squamous Epith Cells Amorphous Sediment Urine Bacteria Hyaline Casts Urine Mucus Micro UA Comment Urine Culture Comments Urine Eosinophils Nasal Screen MRSA (PCR) Blood Type Antibody Screen MTS Gel Crossmatch 05/05/18 05/05/18 05/05/18 06:25 07:31 08:28 WBC RBC Hgb Hct MCV MCH MCHC RDW Plt Count MPV Prelim Diff (Auto) Neut % (Auto) Lymph % (Auto) Banner % (Auto) Eos % (Auto) Baso % (Auto) Neut # (Auto) Lymph # (Auto) Banner # (Auto) Eos # (Auto) Baso # (Auto) WBC Differential Diff Scan Differential Comment PT INR APTT Puncture Site Patient Temperature O2 Saturation ABG pH ABG pCO2 ABG pO2 ABG HCO3 ABG O2 Content ABG Base Excess ABG Methemoglobin Yannick Test Hemoglobin Carboxyhemoglobin O2 Delivery Device Liter Flow Vent Setting Inspired O2 Critical Value Sodium Potassium Chloride Carbon Dioxide Anion Gap BUN Creatinine Estimated GFR POC Glucose 241 H 223 H 247 H Random Glucose Hemoglobin A1c Lactic Acid Calcium Prot Corrected Calcium Phosphorus Magnesium Total Bilirubin AST ALT Alkaline Phosphatase Ammonia Total Creatine Kinase CK-MB (CK-2) CK-MB (CK-2) % Troponin I B-Natriuretic Peptide Total Protein Albumin Triglycerides Cholesterol LDL Cholesterol, Calc HDL Cholesterol Cholesterol/HDL Ratio Beta-Hydroxybutyric Acd TSH Urine Color Urine Clarity Urine pH Ur Specific Ponce Urine Protein Urine Glucose (UA) Urine Ketones Urine Occult Blood Urine Nitrate Urine Bilirubin Urine Urobilinogen Ur Leukocyte Esterase Urine RBC Urine WBC Ur Squamous Epith Cells Amorphous Sediment Urine Bacteria Hyaline Casts Urine Mucus Micro UA Comment Urine Culture Comments Urine Eosinophils Nasal Screen MRSA (PCR) Blood Type Antibody Screen MTS Gel Crossmatch 05/05/18 05/05/18 05/05/18 09:10 09:45 10:52 WBC RBC Hgb Hct MCV MCH MCHC RDW Plt Count MPV Prelim Diff (Auto) Neut % (Auto) Lymph % (Auto) Banner % (Auto) Eos % (Auto) Baso % (Auto) Neut # (Auto) Lymph # (Auto) Banner # (Auto) Eos # (Auto) Baso # (Auto) WBC Differential Diff Scan Differential Comment PT INR APTT Puncture Site Patient Temperature O2 Saturation ABG pH ABG pCO2 ABG pO2 ABG HCO3 ABG O2 Content ABG Base Excess ABG Methemoglobin Yannick Test Hemoglobin Carboxyhemoglobin O2 Delivery Device Liter Flow Vent Setting Inspired O2 Critical Value Sodium Potassium Chloride Carbon Dioxide Anion Gap BUN Creatinine Estimated GFR POC Glucose 210 H 204 H Random Glucose Hemoglobin A1c Lactic Acid 2.5 H Calcium Prot Corrected Calcium Phosphorus Magnesium Total Bilirubin AST ALT Alkaline Phosphatase Ammonia Total Creatine Kinase CK-MB (CK-2) CK-MB (CK-2) % Troponin I B-Natriuretic Peptide Total Protein Albumin Triglycerides Cholesterol LDL Cholesterol, Calc HDL Cholesterol Cholesterol/HDL Ratio Beta-Hydroxybutyric Acd TSH Urine Color Urine Clarity Urine pH Ur Specific Ponce Urine Protein Urine Glucose (UA) Urine Ketones Urine Occult Blood Urine Nitrate Urine Bilirubin Urine Urobilinogen Ur Leukocyte Esterase Urine RBC Urine WBC Ur Squamous Epith Cells Amorphous Sediment Urine Bacteria Hyaline Casts Urine Mucus Micro UA Comment Urine Culture Comments Urine Eosinophils Nasal Screen MRSA (PCR) Blood Type Antibody Screen MTS Gel Crossmatch 05/05/18 05/05/18 05/05/18 11:15 11:15 12:17 WBC RBC Hgb Hct MCV MCH MCHC RDW Plt Count MPV Prelim Diff (Auto) Neut % (Auto) Lymph % (Auto) Banner % (Auto) Eos % (Auto) Baso % (Auto) Neut # (Auto) Lymph # (Auto) Banner # (Auto) Eos # (Auto) Baso # (Auto) WBC Differential Diff Scan Differential Comment PT INR APTT Puncture Site Patient Temperature O2 Saturation ABG pH ABG pCO2 ABG pO2 ABG HCO3 ABG O2 Content ABG Base Excess ABG Methemoglobin Yannick Test Hemoglobin Carboxyhemoglobin O2 Delivery Device Liter Flow Vent Setting Inspired O2 Critical Value Sodium Potassium Chloride Carbon Dioxide Anion Gap BUN Creatinine Estimated GFR POC Glucose 199 H Random Glucose Hemoglobin A1c 9.5 H Lactic Acid Calcium Prot Corrected Calcium Phosphorus Magnesium Total Bilirubin AST ALT Alkaline Phosphatase Ammonia Total Creatine Kinase CK-MB (CK-2) CK-MB (CK-2) % Troponin I B-Natriuretic Peptide Total Protein Albumin Triglycerides 140 Cholesterol 84 L LDL Cholesterol, Calc 37 HDL Cholesterol 19.0 L Cholesterol/HDL Ratio 4.42 Beta-Hydroxybutyric Acd TSH Urine Color Urine Clarity Urine pH Ur Specific Ponce Urine Protein Urine Glucose (UA) Urine Ketones Urine Occult Blood Urine Nitrate Urine Bilirubin Urine Urobilinogen Ur Leukocyte Esterase Urine RBC Urine WBC Ur Squamous Epith Cells Amorphous Sediment Urine Bacteria Hyaline Casts Urine Mucus Micro UA Comment Urine Culture Comments Urine Eosinophils Nasal Screen MRSA (PCR) Blood Type Antibody Screen MTS Gel Crossmatch 05/05/18 05/05/18 05/05/18 13:25 14:30 14:42 WBC RBC Hgb Hct MCV MCH MCHC RDW Plt Count MPV Prelim Diff (Auto) Neut % (Auto) Lymph % (Auto) Banner % (Auto) Eos % (Auto) Baso % (Auto) Neut # (Auto) Lymph # (Auto) Banner # (Auto) Eos # (Auto) Baso # (Auto) WBC Differential Diff Scan Differential Comment PT INR APTT Puncture Site Patient Temperature O2 Saturation ABG pH ABG pCO2 ABG pO2 ABG HCO3 ABG O2 Content ABG Base Excess ABG Methemoglobin Yannick Test Hemoglobin Carboxyhemoglobin O2 Delivery Device Liter Flow Vent Setting Inspired O2 Critical Value Sodium Potassium Chloride Carbon Dioxide Anion Gap BUN Creatinine Estimated GFR POC Glucose 200 H 199 H Random Glucose Hemoglobin A1c Lactic Acid Calcium Prot Corrected Calcium Phosphorus Magnesium Total Bilirubin AST ALT Alkaline Phosphatase Ammonia Total Creatine Kinase CK-MB (CK-2) CK-MB (CK-2) % Troponin I B-Natriuretic Peptide Total Protein Albumin Triglycerides Cholesterol LDL Cholesterol, Calc HDL Cholesterol Cholesterol/HDL Ratio Beta-Hydroxybutyric Acd TSH Urine Color Urine Clarity Urine pH Ur Specific Ponce Urine Protein Urine Glucose (UA) Urine Ketones Urine Occult Blood Urine Nitrate Urine Bilirubin Urine Urobilinogen Ur Leukocyte Esterase Urine RBC Urine WBC Ur Squamous Epith Cells Amorphous Sediment Urine Bacteria Hyaline Casts Urine Mucus Micro UA Comment Urine Culture Comments Urine Eosinophils 0-2 H Nasal Screen MRSA (PCR) Blood Type Antibody Screen MTS Gel Crossmatch 05/05/18 05/05/18 05/05/18 14:45 15:44 16:21 WBC RBC Hgb Hct MCV MCH MCHC RDW Plt Count MPV Prelim Diff (Auto) Neut % (Auto) Lymph % (Auto) Banner % (Auto) Eos % (Auto) Baso % (Auto) Neut # (Auto) Lymph # (Auto) Banner # (Auto) Eos # (Auto) Baso # (Auto) WBC Differential Diff Scan Differential Comment PT INR APTT Puncture Site Patient Temperature O2 Saturation ABG pH ABG pCO2 ABG pO2 ABG HCO3 ABG O2 Content ABG Base Excess ABG Methemoglobin Yannick Test Hemoglobin Carboxyhemoglobin O2 Delivery Device Liter Flow Vent Setting Inspired O2 Critical Value Sodium Potassium 4.3 D Chloride Carbon Dioxide Anion Gap BUN Creatinine Estimated GFR POC Glucose 221 H 210 H Random Glucose Hemoglobin A1c Lactic Acid Calcium Prot Corrected Calcium Phosphorus Magnesium Total Bilirubin AST ALT Alkaline Phosphatase Ammonia Total Creatine Kinase CK-MB (CK-2) CK-MB (CK-2) % Troponin I B-Natriuretic Peptide Total Protein Albumin Triglycerides Cholesterol LDL Cholesterol, Calc HDL Cholesterol Cholesterol/HDL Ratio Beta-Hydroxybutyric Acd TSH Urine Color Urine Clarity Urine pH Ur Specific Ponce Urine Protein Urine Glucose (UA) Urine Ketones Urine Occult Blood Urine Nitrate Urine Bilirubin Urine Urobilinogen Ur Leukocyte Esterase Urine RBC Urine WBC Ur Squamous Epith Cells Amorphous Sediment Urine Bacteria Hyaline Casts Urine Mucus Micro UA Comment Urine Culture Comments Urine Eosinophils Nasal Screen MRSA (PCR) Blood Type Antibody Screen MTS Gel Crossmatch 05/05/18 05/05/18 05/05/18 17:03 18:10 19:23 WBC RBC Hgb Hct MCV MCH MCHC RDW Plt Count MPV Prelim Diff (Auto) Neut % (Auto) Lymph % (Auto) Banner % (Auto) Eos % (Auto) Baso % (Auto) Neut # (Auto) Lymph # (Auto) Banner # (Auto) Eos # (Auto) Baso # (Auto) WBC Differential Diff Scan Differential Comment PT INR APTT Puncture Site Patient Temperature O2 Saturation ABG pH ABG pCO2 ABG pO2 ABG HCO3 ABG O2 Content ABG Base Excess ABG Methemoglobin Yannick Test Hemoglobin Carboxyhemoglobin O2 Delivery Device Liter Flow Vent Setting Inspired O2 Critical Value Sodium Potassium Chloride Carbon Dioxide Anion Gap BUN Creatinine Estimated GFR POC Glucose 219 H 214 H 232 H Random Glucose Hemoglobin A1c Lactic Acid Calcium Prot Corrected Calcium Phosphorus Magnesium Total Bilirubin AST ALT Alkaline Phosphatase Ammonia Total Creatine Kinase CK-MB (CK-2) CK-MB (CK-2) % Troponin I B-Natriuretic Peptide Total Protein Albumin Triglycerides Cholesterol LDL Cholesterol, Calc HDL Cholesterol Cholesterol/HDL Ratio Beta-Hydroxybutyric Acd TSH Urine Color Urine Clarity Urine pH Ur Specific Ponce Urine Protein Urine Glucose (UA) Urine Ketones Urine Occult Blood Urine Nitrate Urine Bilirubin Urine Urobilinogen Ur Leukocyte Esterase Urine RBC Urine WBC Ur Squamous Epith Cells Amorphous Sediment Urine Bacteria Hyaline Casts Urine Mucus Micro UA Comment Urine Culture Comments Urine Eosinophils Nasal Screen MRSA (PCR) Blood Type Antibody Screen MTS Gel Crossmatch 05/05/18 05/05/18 05/05/18 19:58 21:17 23:09 WBC RBC Hgb Hct MCV MCH MCHC RDW Plt Count MPV Prelim Diff (Auto) Neut % (Auto) Lymph % (Auto) Banner % (Auto) Eos % (Auto) Baso % (Auto) Neut # (Auto) Lymph # (Auto) Banner # (Auto) Eos # (Auto) Baso # (Auto) WBC Differential Diff Scan Differential Comment PT INR APTT Puncture Site Patient Temperature O2 Saturation ABG pH ABG pCO2 ABG pO2 ABG HCO3 ABG O2 Content ABG Base Excess ABG Methemoglobin Yannick Test Hemoglobin Carboxyhemoglobin O2 Delivery Device Liter Flow Vent Setting Inspired O2 Critical Value Sodium Potassium Chloride Carbon Dioxide Anion Gap BUN Creatinine Estimated GFR POC Glucose 240 H 251 H 246 H Random Glucose Hemoglobin A1c Lactic Acid Calcium Prot Corrected Calcium Phosphorus Magnesium Total Bilirubin AST ALT Alkaline Phosphatase Ammonia Total Creatine Kinase CK-MB (CK-2) CK-MB (CK-2) % Troponin I B-Natriuretic Peptide Total Protein Albumin Triglycerides Cholesterol LDL Cholesterol, Calc HDL Cholesterol Cholesterol/HDL Ratio Beta-Hydroxybutyric Acd TSH Urine Color Urine Clarity Urine pH Ur Specific Ponce Urine Protein Urine Glucose (UA) Urine Ketones Urine Occult Blood Urine Nitrate Urine Bilirubin Urine Urobilinogen Ur Leukocyte Esterase Urine RBC Urine WBC Ur Squamous Epith Cells Amorphous Sediment Urine Bacteria Hyaline Casts Urine Mucus Micro UA Comment Urine Culture Comments Urine Eosinophils Nasal Screen MRSA (PCR) Blood Type Antibody Screen MTS Gel Crossmatch 05/06/18 05/06/18 05/06/18 00:31 03:40 03:40 WBC 11.0 RBC 2.10 L Hgb 6.6 L* Hct 20.1 L* MCV 95.6 MCH 31.4 MCHC 32.8 RDW 13.7 Plt Count 243 MPV 7.8 Prelim Diff (Auto) Slide review pending Neut % (Auto) 88.5 H Lymph % (Auto) 5.4 L Banner % (Auto) 5.6 Eos % (Auto) 0.3 Baso % (Auto) 0.2 Neut # (Auto) 9.8 H Lymph # (Auto) 0.6 L Banner # (Auto) 0.6 Eos # (Auto) 0.0 Baso # (Auto) 0.0 WBC Differential . Diff Scan Auto diff confirmed Differential Comment . PT INR APTT Puncture Site Patient Temperature O2 Saturation ABG pH ABG pCO2 ABG pO2 ABG HCO3 ABG O2 Content ABG Base Excess ABG Methemoglobin Yannick Test Hemoglobin Carboxyhemoglobin O2 Delivery Device Liter Flow Vent Setting Inspired O2 Critical Value Sodium 139 Potassium 5.0 Chloride 107 D Carbon Dioxide 13.2 L Anion Gap 19 H BUN 84 H Creatinine 3.82 H Estimated GFR 15 L POC Glucose 252 H Random Glucose 272 H D Hemoglobin A1c Lactic Acid Calcium 7.5 L D Prot Corrected Calcium Phosphorus 5.4 H D Magnesium 3.1 H D Total Bilirubin 1.7 H AST 97 H ALT 50 Alkaline Phosphatase 78 Ammonia Total Creatine Kinase CK-MB (CK-2) CK-MB (CK-2) % Troponin I B-Natriuretic Peptide Total Protein 5.9 L D Albumin 2.6 L D Triglycerides Cholesterol LDL Cholesterol, Calc HDL Cholesterol Cholesterol/HDL Ratio Beta-Hydroxybutyric Acd TSH 3.520 Urine Color Urine Clarity Urine pH Ur Specific Ponce Urine Protein Urine Glucose (UA) Urine Ketones Urine Occult Blood Urine Nitrate Urine Bilirubin Urine Urobilinogen Ur Leukocyte Esterase Urine RBC Urine WBC Ur Squamous Epith Cells Amorphous Sediment Urine Bacteria Hyaline Casts Urine Mucus Micro UA Comment Urine Culture Comments Urine Eosinophils Nasal Screen MRSA (PCR) Blood Type Antibody Screen MTS Gel Crossmatch 05/06/18 05/06/18 05/06/18 03:40 03:50 04:56 WBC RBC Hgb Hct MCV MCH MCHC RDW Plt Count MPV Prelim Diff (Auto) Neut % (Auto) Lymph % (Auto) Banner % (Auto) Eos % (Auto) Baso % (Auto) Neut # (Auto) Lymph # (Auto) Banner # (Auto) Eos # (Auto) Baso # (Auto) WBC Differential Diff Scan Differential Comment PT INR APTT Puncture Site Patient Temperature O2 Saturation ABG pH ABG pCO2 ABG pO2 ABG HCO3 ABG O2 Content ABG Base Excess ABG Methemoglobin Yannick Test Hemoglobin Carboxyhemoglobin O2 Delivery Device Liter Flow Vent Setting Inspired O2 Critical Value Sodium Potassium Chloride Carbon Dioxide Anion Gap BUN Creatinine Estimated GFR POC Glucose 306 H Random Glucose Hemoglobin A1c Lactic Acid Calcium Prot Corrected Calcium Phosphorus Magnesium Total Bilirubin AST ALT Alkaline Phosphatase Ammonia 45 H Total Creatine Kinase CK-MB (CK-2) CK-MB (CK-2) % Troponin I B-Natriuretic Peptide Total Protein Albumin Triglycerides Cholesterol LDL Cholesterol, Calc HDL Cholesterol Cholesterol/HDL Ratio Beta-Hydroxybutyric Acd TSH Urine Color Urine Clarity Urine pH Ur Specific Ponce Urine Protein Urine Glucose (UA) Urine Ketones Urine Occult Blood Urine Nitrate Urine Bilirubin Urine Urobilinogen Ur Leukocyte Esterase Urine RBC Urine WBC Ur Squamous Epith Cells Amorphous Sediment Urine Bacteria Hyaline Casts Urine Mucus Micro UA Comment Urine Culture Comments Urine Eosinophils Nasal Screen MRSA (PCR) Blood Type Antibody Screen MTS Gel Crossmatch See Detail 05/06/18 05/06/18 05/06/18 05:30 07:06 07:35 WBC RBC Hgb Hct MCV MCH MCHC RDW Plt Count MPV Prelim Diff (Auto) Neut % (Auto) Lymph % (Auto) Banner % (Auto) Eos % (Auto) Baso % (Auto) Neut # (Auto) Lymph # (Auto) Banner # (Auto) Eos # (Auto) Baso # (Auto) WBC Differential Diff Scan Differential Comment PT INR APTT Puncture Site Art line Patient Temperature 98.6 O2 Saturation 94 ABG pH 7.19 L* ABG pCO2 29 L ABG pO2 105 ABG HCO3 11 L* ABG O2 Content 12.6 ABG Base Excess -15.8 L ABG Methemoglobin 1.3 Yannick Test Present Hemoglobin 9.4 L Carboxyhemoglobin 1.1 O2 Delivery Device Ventilator Liter Flow Vent Setting See comments Inspired O2 40 Critical Value Yes Sodium Potassium Chloride Carbon Dioxide Anion Gap BUN Creatinine Estimated GFR POC Glucose 310 H Random Glucose Hemoglobin A1c Lactic Acid Calcium Prot Corrected Calcium Phosphorus Magnesium Total Bilirubin AST ALT Alkaline Phosphatase Ammonia Total Creatine Kinase CK-MB (CK-2) CK-MB (CK-2) % Troponin I B-Natriuretic Peptide Total Protein Albumin Triglycerides Cholesterol LDL Cholesterol, Calc HDL Cholesterol Cholesterol/HDL Ratio Beta-Hydroxybutyric Acd TSH Urine Color Urine Clarity Urine pH Ur Specific Ponce Urine Protein Urine Glucose (UA) Urine Ketones Urine Occult Blood Urine Nitrate Urine Bilirubin Urine Urobilinogen Ur Leukocyte Esterase Urine RBC Urine WBC Ur Squamous Epith Cells Amorphous Sediment Urine Bacteria Hyaline Casts Urine Mucus Micro UA Comment Urine Culture Comments Urine Eosinophils Nasal Screen MRSA (PCR) Blood Type Antibody Screen MTS Gel Crossmatch See Detail 05/06/18 07:57 WBC RBC Hgb Hct MCV MCH MCHC RDW Plt Count MPV Prelim Diff (Auto) Neut % (Auto) Lymph % (Auto) Banner % (Auto) Eos % (Auto) Baso % (Auto) Neut # (Auto) Lymph # (Auto) Banner # (Auto) Eos # (Auto) Baso # (Auto) WBC Differential Diff Scan Differential Comment PT INR APTT Puncture Site Patient Temperature O2 Saturation ABG pH ABG pCO2 ABG pO2 ABG HCO3 ABG O2 Content ABG Base Excess ABG Methemoglobin Yannick Test Hemoglobin Carboxyhemoglobin O2 Delivery Device Liter Flow Vent Setting Inspired O2 Critical Value Sodium Potassium Chloride Carbon Dioxide Anion Gap BUN Creatinine Estimated GFR POC Glucose Random Glucose Hemoglobin A1c Lactic Acid 4.6 H* Calcium Prot Corrected Calcium Phosphorus Magnesium Total Bilirubin AST ALT Alkaline Phosphatase Ammonia Total Creatine Kinase CK-MB (CK-2) CK-MB (CK-2) % Troponin I B-Natriuretic Peptide Total Protein Albumin Triglycerides Cholesterol LDL Cholesterol, Calc HDL Cholesterol Cholesterol/HDL Ratio Beta-Hydroxybutyric Acd TSH Urine Color Urine Clarity Urine pH Ur Specific Ponce Urine Protein Urine Glucose (UA) Urine Ketones Urine Occult Blood Urine Nitrate Urine Bilirubin Urine Urobilinogen Ur Leukocyte Esterase Urine RBC Urine WBC Ur Squamous Epith Cells Amorphous Sediment Urine Bacteria Hyaline Casts Urine Mucus Micro UA Comment Urine Culture Comments Urine Eosinophils Nasal Screen MRSA (PCR) Blood Type Antibody Screen MTS Gel Crossmatch Result Diagrams: 05/06/18 03:40 05/06/18 03:40 Microbiology: Microbiology 05/04/18 11:35 Urine Culture - Final Catheterized Urine No growth in 48 hours 05/04/18 12:45 Gram Stain - Final Sputum - Endotracheal Sputum Culture - Preliminary Heavy growth normal respiratory lee at 24 hours 05/04/18 07:55 Aerobic Blood Culture - Preliminary Blood - Peripheral No growth in 1 day Anaerobic Blood Culture - Preliminary No growth in 1 day 05/04/18 07:40 Aerobic Blood Culture - Preliminary Blood - Peripheral No growth in 1 day Anaerobic Blood Culture - Preliminary No growth in 1 day Patient/Family Conference Issues Discussed: * Palliative care role, purpose, approach * Additional medical, psychosocial, and spiritual history * Patients general health, functional status, and cognitive changes in the months leading up to the current hospitalization * Patient/family understanding of the current medical problems * Patient/family understanding of prognosis * Patients goals of care as best understood from advance directives and/or conversations and/or values * Current medical treatment options and benefits/burdens of those options * Likely scenarios comparing ongoing aggressive care with a transition to comfort measures only * Questions answered to the best of my ability * Palliative care contact information provided Assessment and Plan Pertinent Non-Medical Issues: Psychosocial: Spiritual: Legal: Ethical issues impacting care: Appreciation Thank you for the opportunity to participate in the care of Damir Jerome.
[2018-05-06] MEDS: Hydrocortisone Sod Succinate 100 MG Vial IV.PUSH SCH ×3 (12:01→23:41)
--- NOTE | 2018-05-06 13:43 | P.CONNP ---
History of Present Illness Service: Nephrology Consult date: 05/06/18 Requesting Physician: Kayla Goncalves Reason for Consult: STIVEN Primary Care Provider: Diogo Carr MD Family Provider: Diogo Carr MD Chief Complaint: Shortness of breath, lethargic History of Present Illness: The patient is an 82 yo [place] male who was brought to this facility via [facility] on 09/11 from [facility] for AMS, SOB, and hypotension. He was intubated in the ED so all information is obtained from previous notes and his son who is present in room. He was admitted here 04/26/18 through 04/29/18 after sustaining a hip fracture requiring internal fixation. During his admission, his renal functions appeared to be at his baseline SCr of 1.7 (appears baseline since 2017). On arrival in ED, his SCr was 2.99. Had some improvement on 05/05 to 2.33, but worsened again to 3.82 at time of consultation. He is in shock requiring inotropic support. Remains intubated. UOP has been decreasing. He is profoundly acidotic, but is improving somewhat with bicarb drip. We have been consulted regarding renal failure. His family has had consultation with palliative care. His son says that he has 2 sisters living in [place], one of which is the POA. Review of Systems unobtainable due to endotracheal tube, unobtainable due to mental condition PMFSH - History History Provided By: Family Member - Medical / Surgical Hx Neg / Unobtainable Medical Problems Denied: Unable to Obtain - Medical History Medical History: Medical History (Last Updated 05/06/18 @ 15:06 by Emilia Ochoa MD) Right femoral fracture (Acute) Anemia Chronic kidney disease Stroke Diabetes - Surgical History Surgical History: Surgical History (Last Reviewed 04/27/18 @ 09:14 by Craig Smith) Amputated toe of left foot - Family History Family History: Family History (Last Updated 04/27/18 @ 00:44 by ОЛЕГ Ding) Father Prostate cancer - Tobacco History Second Hand Smoke Exposure: Yes Tobacco Use In Past 30 Days: Yes Smoking Status: Current every day smoker Tobacco Type: Cigarettes Cigarettes Per Day: 2 - Alcohol History How Often Do You Have a Drink Containing Alcohol: Never - Substance Use History Substance History: No History of Abuse - Travel History Recent Travel in the [place] Within the Last 8 Weeks: No Recent Travel Out of the Country Within the Last 8 Weeks: No - Immunization History Tetanus Immunization: Unsure Hx Influenza Vaccine This Season: Yes Medications and Allergies Active Medications: Active Medications Acetaminophen (Tylenol Liq) 650 mg PO Q6H PRN PRN Reason: FEVER Al Hydroxide/Mg Hydroxide (Milk Of Magnesia Liq) 30 ml PO Q12H PRN PRN Reason: Mild Constipation Albuterol (Albuterol Neb (Prn)) 2.5 mg NEB Q2HR NEB PRN PRN Reason: SHORTNESS OF BREATH/WHEEZING Albuterol (Duoneb Neb (Sohail)) 1 ampul NEB Q4HR NEB [facility] Last Admin: 05/06/18 12:48 Dose: 1 ampul Artificial Tears (Genteal Severe Dry Eye Relief 0.3% Opth Gel) 1 drops EACH EYE Q8H [facility] Last Admin: 05/06/18 11:26 Dose: 1 drops Aspirin (Aspirin Chew) 81 mg PO BID [facility] Last Admin: 05/06/18 08:53 Dose: 81 mg Atorvastatin Calcium (Lipitor) 40 mg PO HS [facility] Last Admin: 05/05/18 20:52 Dose: 40 mg Chlorhexidine Gluconate (Chlorhexidine 2% Cloth) 3 pack TOPICAL DAILY@0400 [facility] Stop: 05/10/18 03:59 Last Admin: 05/06/18 04:00 Dose: 3 pack Chlorhexidine Gluconate (Chlorhexidine 2% Cloth) 1 pack TOPICAL DAILY@0400 PRN PRN Reason: Extra cloth needed Stop: 05/10/18 03:59 Chlorhexidine Gluconate (Peridex 0.12% Oral Kit) 15 ml OROPHARYNG BID@0800, 2000 [facility] Last Admin: 05/06/18 07:31 Dose: Not Given Dextrose (D50w Vial) 50 ml IV.PUSH UNSCH PRN PRN Reason: PER HYPOGLYCEMIA PROTOCOL Glucagon (Glucagon Inj) 1 mg OTHER PRN PRN PRN Reason: for Hypoglycemia Protocol Hydrocortisone Sodium Succinate (Solucortef Inj) 50 mg IV.PUSH Q6HR [facility] Last Admin: 05/06/18 12:01 Dose: 50 mg Heparin Sodium/Dextrose (Heparin/D5w 25,000 U/250 Ml) 25,000 unit in 250 mls @ 10 mls/hr IV.CONT TITRATE PRN; Protocol PRN Reason: Per Protocol Midazolam HCl (Versed Inj) 50 mg in 50 mls @ 2 mls/hr IV.CONT TITRATE PRN; Protocol PRN Reason: Per Protocol Last Titration: 05/06/18 09:03 Dose: Infused Norepinephrine Bitartrate 4 mg (/ Sodium Chloride) 250 mls @ 7.5 mls/hr IV.SIG TITRATE PRN; Protocol PRN Reason: Per Protocol Last Admin: 05/06/18 10:19 Dose: 10 mcg/min, 37.5 mls/hr Fentanyl (Fentanyl 10 Mcg/Ml Premix Drip) 2,500 mcg in 250 mls @ 5 mls/hr IV.SIG TITRATE PRN; Protocol PRN Reason: Per Protocol Last Admin: 05/06/18 09:07 Dose: 50 mcg/hr, 5 mls/hr Piperacillin/Tazobactam/Dextrose (Zosyn 3.375 Gm Premix) 50 mls @ 100 mls/hr IV.SIG Q6H [facility] Last Infusion: 05/06/18 12:31 Dose: Infused Pharmacy Profile Note (Vancomycin Consult Pharmacy) 0 mls @ 0 mls/hr OTHER UNSCH [facility] Vasopressin 40 unit/ Dextrose 100 mls @ 6 mls/hr IV.CONT CONT [facility]; Protocol Dobutamine HCl 500 mg/ (Dextrose) 250 mls @ 7.12 mls/hr IV.CONT .Q24H [facility] Last Admin: 05/06/18 07:25 Dose: Not Given Amiodarone HCl 450 mg/ Sodium (Chloride) 250 mls @ 33.33 mls/hr IV.CONT .Q7H31M [facility]; Protocol Last Admin: 05/06/18 10:18 Dose: 1 mg/min, 33.33 mls/hr Sodium Bicarbonate 150 meq/ (Sterile Water) 1,150 mls @ 150 mls/hr IV.SIG CONT [facility] Last Admin: 05/06/18 09:02 Dose: 150 mls/hr Phenylephrine HCl 160 mg/ (Dextrose) 500 mls @ 7.5 mls/hr IV.CONT TITRATE PRN; Protocol PRN Reason: Per Protocol Last Admin: 05/06/18 09:02 Dose: 40 mcg/min, 7.5 mls/hr Insulin Aspart (Novolog Insulin Suppl Scale Inj) 0 unit SQ Q4HR [facility]; Protocol Last Admin: 05/06/18 12:00 Dose: 10 unit Insulin Detemir (Levemir Inj) 10 unit SQ BID [facility] Last Admin: 05/06/18 08:54 Dose: 10 unit Lactulose (Lactulose Liq) 30 ml PO DAILY PRN PRN Reason: SEVERE CONSITIPATION Lansoprazole (Prevacid Solutab) 30 mg NG/OG DAILY [facility] Last Admin: 05/06/18 08:53 Dose: 30 mg Senna/Docusate Sodium (Roxy-Colace) 1 tab PO BID [facility] Last Admin: 05/06/18 08:53 Dose: 1 tab Sodium Chloride (Ns Flush) 2 ml IV.FLUSH BID [facility] Last Admin: 05/06/18 10:50 Dose: 2 ml Sodium Chloride (Ns Flush) 2 ml IV.FLUSH PRN PRN PRN Reason: FLUSH AFTER USING IV ACCESS Tamsulosin HCl (Flomax) 0.4 mg PO DAILY [facility] Last Admin: 05/06/18 08:53 Dose: 0.4 mg Terbutaline Sulfate (Brethine Inj) 1 mg SQ UNSCH PRN PRN Reason: For Extravasation Allergies Allergy/AdvReac Type Severity Reaction Status Date / Time No Known Allergies Allergy Unverified 05/04/18 09:31 Home Medications Medication Instructions Recorded Confirmed Type glipizide 5 mg PO BID 04/26/18 05/04/18 History acetaminophen 650 mg PO Q4H PRN 05/04/18 05/04/18 History aspirin 81 mg PO BID 05/04/18 05/04/18 History hydrocodone-acetaminophen 1 tab PO Q6H PRN 05/04/18 05/04/18 History insulin aspart U-100 [Novolog 20 unit SUB-Q ONCE 05/04/18 05/04/18 History U-100 Insulin aspart] magnesium hydroxide [Milk of 30 ml PO DAILY PRN 05/04/18 05/04/18 History Magnesia] sennosides 17.2 mg PO DAILY 05/04/18 05/04/18 History Exam Vital signs: Vital Signs 05/05/18 16:00 05/05/18 16:10 05/05/18 19:09 Temperature 99.4 F Pulse Rate 115 H 111 H Respiratory Rate 16 28 H 23 Blood Pressure 93/51 L Pulse Oximetry 98 99 100 05/05/18 20:00 05/05/18 23:43 05/06/18 00:00 Temperature 99.9 F H 99.3 F Pulse Rate 116 H 113 H 111 H Respiratory Rate 26 H 23 25 H Blood Pressure 83/52 L 80/53 L Pulse Oximetry 100 100 100 05/06/18 03:46 05/06/18 04:00 05/06/18 07:37 Temperature 99.6 F Pulse Rate 105 H 124 H 120 H Respiratory Rate 26 H 26 H 26 H Blood Pressure 69/38 L Pulse Oximetry 98 05/06/18 07:38 05/06/18 08:00 05/06/18 09:00 Temperature 98.1 F Pulse Rate 118 H 109 H Respiratory Rate 25 H 22 Blood Pressure 76/60 L Pulse Oximetry 97 05/06/18 09:54 05/06/18 12:00 05/06/18 12:43 Temperature 97.9 F 99.2 F Pulse Rate 106 H 95 H Respiratory Rate 24 20 25 H Blood Pressure 100/56 L 93/60 L Pulse Oximetry 96 97 98 05/06/18 12:49 Temperature Pulse Rate 93 H Respiratory Rate 26 H Blood Pressure Pulse Oximetry Intake & Output 05/05/18 05/06/18 05/06/18 18:59 06:59 18:59 Intake Total 650 / 650 969 / 969 1150 / 1150 Output Total 275 / 275 5 / 5 Balance 375 / 375 964 / 964 1150 / 1150 Weight 98 kg Intake: IV 650 / 650 800 / 800 350 / 350 NovoLIN R (IV Infusion) 100 100 / 100 UNIT In NS Inj 99 ML @ Per Protocol IV.CONT TITRATE PRN Rx #:[id number] Versed Inj 50 mg In 50 ml @ 2 100 / 100 50 / 50 50 / 50 MG/HR 2 mls/hr IV.CONT TITRATE PRN Rx#:[id number] Flexbumin 25% Inj 100 ML @ 60 200 / 200 mls/hr IV.SIG Q12H [facility] Rx#: [id number] Levophed Inj 4 MG In NS Inj 246 250 / 250 500 / 500 250 / 250 ML @ 2 MCG/MIN 7.5 mls/hr IV. SIG TITRATE PRN Rx#:[id number] Zosyn 3.375 GM Premix 50 ML @ 100 / 100 150 / 150 50 / 50 100 mls/hr IV.SIG Q6H [facility] Rx#: [id number] Tube Feeding 89 / 89 Tube Irrigant 80 / 80 Intake (Blood Product) Amt 0 / 0 800 / 800 Rbc As-3 Leukoreduced Unit 400 / 400 [id number] Rbc As-3 Leukoreduced Unit 0 / 0 400 / 400 [id number] Output: Urine Amount (Catheter) 275 / 275 5 / 5 Indwelling Urethral Catheter 275 / 275 5 / 5 Other: Date of Last Bowel Movement 05/05/18 05/05/18 05/05/18 - Constitutional Comments: Intubated, sedated, elderly appearing gentleman. - Routine HEENT Exam Head: Present: normocephalic, atraumatic - Routine Neck Exam Present: supple - Routine Respiratory Exam Present: patient mechanically ventilated, decreased breath sounds - Routine Cardiovascular Exam Present: RRR, S1, S2 - Routine Abdominal Exam Present: soft - Routine Extremities Exam Present: edema (1-2+ pitting edema in extremities) - Routine Skin Exam Present: intact Results - Lab Results 05/06/18 03:40 05/06/18 13:40 Most recent lab results ABG pH 7.37 (7.380-7.420) L 05/06/18 10:00 ABG pCO2 23 mmHg (38-42) L* 05/06/18 10:00 ABG pO2 80 mmHG (61-120) 05/06/18 10:00 ABG HCO3 13 mmol/L (22-26) L* 05/06/18 10:00 Calcium 7.5 mg/dL (8.5-10.1) L D 05/06/18 03:40 Phosphorus 5.4 mg/dL (2.5-4.9) H D 05/06/18 03:40 Magnesium 3.1 mg/dL (1.5-2.5) H D 05/06/18 03:40 - Image Kidney/bladder ultrasound: report reviewed Assessment and Plan - Assessment (1) Acute renal failure (ARF) Code(s): N17.9 - Acute kidney failure, unspecified Status: Acute Plan: The patient is in renal failure from apparent shock. Etiology of shock potentially cardiogenic? BCx have been negative x48h. He has a known EF of 35- 40%. He is critically ill, intubated, and on inotropic support. He is significantly acidotic and oliguric. Azotemia is unfortunately worsening. Had long discussion with the patient's son regarding his condition. He will likely require dialytic support within the next 24h. States that he will have to speak with his sisters regarding long-term goals and aggressiveness of treatment. Per son, the patient has been going down hill for some time and showing some signs of dementia. Sustained recent fracture and has been at [facility]. As above, no urgency for dialysis today, but decision will have to be made by the AM. If dialysis is pursued, will require CRRT given his hemodynamic instability. Will follow in the AM. (2) Shock Code(s): R57.9 - Shock, unspecified Status: Acute (1) Acute renal failure (ARF) Qualifiers: Acute renal failure type: unspecified Qualified Code(s): N17.9 - Acute kidney failure, unspecified
[2018-05-06 14:25] LABS: Calcium 7.6 mg/dL (8.5-10.1); Carbon Dioxide 16.6 meq/L (21.0-32.0); Potassium 4.7 meq/L (3.5-5.1)
--- NOTE | 2018-05-06 15:25 | P.CONPAL ---
Consult Service: Palliative Care Reason for Consult: a. To assist with evaluation and management of symptoms including: dyspnea, pain. b. To assist medical decision maker(s) with: better understanding of current medical conditions; weighing benefits/burdens of medical treatment options; making medical treatment decisions. Primary Care Provider: Diogo Carr MD History of Present Illness History of Present Illness: Mr. Jerome is an 82 year old male with past medical history of type II diabetes, hyperlipidemia, oxygen dependent COPD (4LPM), chronic kidney disease, BPH and hypothyroidism. Patient was living at home, had a right hip fracture post surgery underwent a nailing procedure at [facility], and DC to [facility] rehab on May 03, 2018. Patient presented to [facility] emergency department from [facility] on 05/04/18 for evaluation of hyperglycemia, hypoxia and hypotension. Upon EMS arrival to the facility the patient was found to have an oxygen saturation in the 80's required oxygen via non-rebreather to maintain sats. Initial emergency room evaluation revealed: * VS: temp 100.2, pulse 110, blood pressure 88/55 * WBC 14.6, hemoglobin 7.9, hematocrit 23.9, platelets 298 * Sodium 136, potassium 5.1, chloride 106, carbon dioxide 17.2, BUN 77, creatinine 2.99, GFR 20, glucose 348 * Total bilirubin 0.9, AST 92, ALT 30, alk phos 98 * Total creatine kinase 596, CK-MB 21.3, troponin 5.01 * BNP greater than 2300 * Chest x-ray with perihilar infiltrate Cultures were obtained, antibiotics and resuscitation were initiated. The patient's respiratory status worsened and he was INTUBATED in the emergency department. He developed shock and was placed on Levophed and transferred to the [facility]. An echocardiogram on in reports an ejection fraction of 35-40%. On 05/05/18, renal ultrasound was unremarkable. CT head scan revealed a small old lacunar infarct (and the patient had a history of ischemic stroke May 2017), and an EEG revealed moderate slowing, moderate encephalopathy. His creatinine had improved slightly to 2.33. Blood cultures have shown no growth in 2 days. However, on 05/06/18, the date of this consultation, the creatinine had worsened considerably, now 3.82. His hemoglobin had dropped to 6.6 and he was being transfused. The chest x-ray may be slightly better. With the multiorgan system failure and advanced age predicting a poor prognosis , Palliative Care was consulted to assist with symptom management, and to enter into discussion with the patient's family regarding his current illnesses, the prognosis, and the benefits and burdens of the various treatment choices. Function/Cognitive Trajectory: The patient has been declining slowly over the last couple years, he was still living independently prior to his fall and hip fracture on 04/26/18, but had started using a cane and his gait was somewhat unsteady. 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 Review of Systems other (History from family and medical record) Constitutional: Reports fatigue, Reports weight loss Eyes: Denies discharge Ears, Nose, Mouth, and Throat: Denies neck lump, Denies neck pain Cardiovascular: Reports shortness of breath, Denies chest pain Respiratory: Reports chest congestion, Reports cough, Denies coughing up blood Gastrointestinal: Denies abdominal pain, Denies black, tarry stools, Denies vomiting blood Genitourinary: Denies blood in urine Musculoskeletal: Reports abnormal walking (Gait was somewhat unsteady the past year or so), Denies joint swelling Skin/Breast: Denies bleeding lesions, Denies rash Neurologic: Denies seizure-like activity Psychiatric: Reports confusion (With this acute illness) Endocrine: Denies flushing Hematologic/Lymphatic: Denies easy bruising Allergic/Immunologic: Denies hives PMFSH - History History Provided By: Family Member (Primarily son, but also all 3 daughters) - Medical / Surgical Hx Neg / Unobtainable Medical Problems Denied: Unable to Obtain - Medical History Medical History: Medical History (Last Updated 05/06/18 @ 15:06 by Emilia Ochoa MD) Right femoral fracture (Acute) Anemia Chronic kidney disease Stroke Diabetes - Surgical History Surgical History: Surgical History (Last Reviewed 04/27/18 @ 09:14 by Craig Smith) Amputated toe of left foot - Family History Family History: Family History (Last Updated 04/27/18 @ 00:44 by ОЛЕГ Ding) Father Prostate cancer - Tobacco History Second Hand Smoke Exposure: Yes Tobacco Use In Past 30 Days: Yes Smoking Status: Current every day smoker Tobacco Type: Cigarettes Cigarettes Per Day: 10 - Alcohol History How Often Do You Have a Drink Containing Alcohol: Never - Substance Use History Substance History: No History of Abuse - Travel History Recent Travel in the [place] Within the Last 8 Weeks: No Recent Travel Out of the Country Within the Last 8 Weeks: No - Immunization History Tetanus Immunization: Unsure Hx Influenza Vaccine This Season: Yes Medications and Allergies Active Medications: Active Medications Acetaminophen (Tylenol Liq) 650 mg PO Q6H PRN PRN Reason: FEVER Al Hydroxide/Mg Hydroxide (Milk Of Magnesia Liq) 30 ml PO Q12H PRN PRN Reason: Mild Constipation Albuterol (Albuterol Neb (Prn)) 2.5 mg NEB Q2HR NEB PRN PRN Reason: SHORTNESS OF BREATH/WHEEZING Albuterol (Duoneb Neb (Sohail)) 1 ampul NEB Q4HR NEB [facility] Last Admin: 05/06/18 12:48 Dose: 1 ampul Artificial Tears (Genteal Severe Dry Eye Relief 0.3% Opth Gel) 1 drops EACH EYE Q8H [facility] Last Admin: 05/06/18 11:26 Dose: 1 drops Aspirin (Aspirin Chew) 81 mg PO BID [facility] Last Admin: 05/06/18 08:53 Dose: 81 mg Atorvastatin Calcium (Lipitor) 40 mg PO HS [facility] Last Admin: 05/05/18 20:52 Dose: 40 mg Chlorhexidine Gluconate (Chlorhexidine 2% Cloth) 3 pack TOPICAL DAILY@0400 [facility] Stop: 05/10/18 03:59 Last Admin: 05/06/18 04:00 Dose: 3 pack Chlorhexidine Gluconate (Chlorhexidine 2% Cloth) 1 pack TOPICAL DAILY@0400 PRN PRN Reason: Extra cloth needed Stop: 05/10/18 03:59 Chlorhexidine Gluconate (Peridex 0.12% Oral Kit) 15 ml OROPHARYNG BID@0800, 2000 [facility] Last Admin: 05/06/18 07:31 Dose: Not Given Dextrose (D50w Vial) 50 ml IV.PUSH UNSCH PRN PRN Reason: PER HYPOGLYCEMIA PROTOCOL Glucagon (Glucagon Inj) 1 mg OTHER PRN PRN PRN Reason: for Hypoglycemia Protocol Hydrocortisone Sodium Succinate (Solucortef Inj) 50 mg IV.PUSH Q6HR [facility] Last Admin: 05/06/18 12:01 Dose: 50 mg Heparin Sodium/Dextrose (Heparin/D5w 25,000 U/250 Ml) 25,000 unit in 250 mls @ 10 mls/hr IV.CONT TITRATE PRN; Protocol PRN Reason: Per Protocol Midazolam HCl (Versed Inj) 50 mg in 50 mls @ 2 mls/hr IV.CONT TITRATE PRN; Protocol PRN Reason: Per Protocol Last Titration: 05/06/18 09:03 Dose: Infused Norepinephrine Bitartrate 4 mg (/ Sodium Chloride) 250 mls @ 7.5 mls/hr IV.SIG TITRATE PRN; Protocol PRN Reason: Per Protocol Last Admin: 05/06/18 10:19 Dose: 10 mcg/min, 37.5 mls/hr Fentanyl (Fentanyl 10 Mcg/Ml Premix Drip) 2,500 mcg in 250 mls @ 5 mls/hr IV.SIG TITRATE PRN; Protocol PRN Reason: Per Protocol Last Admin: 05/06/18 09:07 Dose: 50 mcg/hr, 5 mls/hr Piperacillin/Tazobactam/Dextrose (Zosyn 3.375 Gm Premix) 50 mls @ 100 mls/hr IV.SIG Q6H [facility] Last Infusion: 05/06/18 12:31 Dose: Infused Pharmacy Profile Note (Vancomycin Consult Pharmacy) 0 mls @ 0 mls/hr OTHER UNSCH [facility] Vasopressin 40 unit/ Dextrose 100 mls @ 6 mls/hr IV.CONT CONT SOHAIL; Protocol Dobutamine HCl 500 mg/ (Dextrose) 250 mls @ 7.12 mls/hr IV.CONT .Q24H [facility] Last Admin: 05/06/18 07:25 Dose: Not Given Amiodarone HCl 450 mg/ Sodium (Chloride) 250 mls @ 33.33 mls/hr IV.CONT .Q7H31M [facility]; Protocol Last Admin: 05/06/18 10:18 Dose: 1 mg/min, 33.33 mls/hr Sodium Bicarbonate 150 meq/ (Sterile Water) 1,150 mls @ 150 mls/hr IV.SIG CONT [facility] Last Admin: 05/06/18 09:02 Dose: 150 mls/hr Phenylephrine HCl 160 mg/ (Dextrose) 500 mls @ 7.5 mls/hr IV.CONT TITRATE PRN; Protocol PRN Reason: Per Protocol Last Admin: 05/06/18 09:02 Dose: 40 mcg/min, 7.5 mls/hr Insulin Aspart (Novolog Insulin Suppl Scale Inj) 0 unit SQ Q4HR [facility]; Protocol Last Admin: 05/06/18 12:00 Dose: 10 unit Insulin Detemir (Levemir Inj) 10 unit SQ BID [facility] Last Admin: 05/06/18 08:54 Dose: 10 unit Lactulose (Lactulose Liq) 30 ml PO DAILY PRN PRN Reason: SEVERE CONSITIPATION Lansoprazole (Prevacid Solutab) 30 mg NG/OG DAILY [facility] Last Admin: 05/06/18 08:53 Dose: 30 mg Senna/Docusate Sodium (Roxy-Colace) 1 tab PO BID [facility] Last Admin: 05/06/18 08:53 Dose: 1 tab Sodium Chloride (Ns Flush) 2 ml IV.FLUSH BID [facility] Last Admin: 05/06/18 10:50 Dose: 2 ml Sodium Chloride (Ns Flush) 2 ml IV.FLUSH PRN PRN PRN Reason: FLUSH AFTER USING IV ACCESS Tamsulosin HCl (Flomax) 0.4 mg PO DAILY [facility] Last Admin: 05/06/18 08:53 Dose: 0.4 mg Terbutaline Sulfate (Brethine Inj) 1 mg SQ UNSCH PRN PRN Reason: For Extravasation Allergies Allergy/AdvReac Type Severity Reaction Status Date / Time No Known Allergies Allergy Unverified 05/04/18 09:31 Home Medications Medication Instructions Recorded Confirmed Type glipizide 5 mg PO BID 04/26/18 05/04/18 History acetaminophen 650 mg PO Q4H PRN 05/04/18 05/04/18 History aspirin 81 mg PO BID 05/04/18 05/04/18 History hydrocodone-acetaminophen 1 tab PO Q6H PRN 05/04/18 05/04/18 History insulin aspart U-100 [Novolog 20 unit SUB-Q ONCE 05/04/18 05/04/18 History U-100 Insulin aspart] magnesium hydroxide [Milk of 30 ml PO DAILY PRN 05/04/18 05/04/18 History Magnesia] sennosides 17.2 mg PO DAILY 05/04/18 05/04/18 History Advance Directives Living Will: No Healthcare Surrogate: No Family/friends goals: I met in the consult room with the patient's son Vishal, and then telephoned each of his 3 daughters, Divina, Nancy, and Julita. I updated all of them on the patient's condition and prognosis. They all agree that they want to change to Alternate CODE STATUS, intubation only. They are aware that he is at high risk for , and they are aware that a decision regarding "how long we will want to keep doing all these things to him" may be forthcoming in the upcoming hours or days. Ethical and Legal Issues: The patient is unable to make decisions at this time. The patient lacks capacity for decision-making, and it is unclear whether he will regain that. In the absence of a spouse and any written advanced directives, decision making falls to the majority of his 4 children, all of whom are available and willing to participate in the decision-making. All have agreed that son Vishal Jerome will be the point of crack off person for those involved in his healthcare here. Physical Exam Vital Signs: Vital Signs - 24 hr 05/05/18 16:00 05/05/18 16:10 05/05/18 19:09 Temperature 99.4 F Pulse Rate 115 H 111 H Respiratory Rate 16 28 H 23 Blood Pressure 93/51 L Pulse Oximetry 98 99 100 05/05/18 20:00 05/05/18 23:43 05/06/18 00:00 Temperature 99.9 F H 99.3 F Pulse Rate 116 H 113 H 111 H Respiratory Rate 26 H 23 25 H Blood Pressure 83/52 L 80/53 L Pulse Oximetry 100 100 100 05/06/18 03:46 05/06/18 04:00 05/06/18 07:37 Temperature 99.6 F Pulse Rate 105 H 124 H 120 H Respiratory Rate 26 H 26 H 26 H Blood Pressure 69/38 L Pulse Oximetry 98 05/06/18 07:38 05/06/18 08:00 05/06/18 09:00 Temperature 98.1 F Pulse Rate 118 H 109 H Respiratory Rate 25 H 22 Blood Pressure 76/60 L Pulse Oximetry 97 05/06/18 09:54 05/06/18 12:00 05/06/18 12:43 Temperature 97.9 F 99.2 F Pulse Rate 106 H 95 H Respiratory Rate 24 20 25 H Blood Pressure 100/56 L 93/60 L Pulse Oximetry 96 97 98 05/06/18 12:49 Temperature Pulse Rate 93 H Respiratory Rate 26 H Blood Pressure Pulse Oximetry I&O: Intake & Output 05/04/18 05/05/18 05/06/18 05/07/18 06:59 06:59 06:59 06:59 Intake Total 1150 / 1150 1619 / 1619 1150 / 1150 Output Total 275 / 275 280 / 280 Balance 875 / 875 1339 / 1339 1150 / 1150 Weight 95 kg 98 kg Physical Exam: CONSTITUTIONAL/GENERAL: This is an elderly, unresponsive, mechanically ventilated, sedated patient, in no apparent distress. TUBES/LINES/DRAINS: ET tube, IV access, Jean, SCDs SKIN: No jaundice, rashes, or lesions. Ecchymoses on upper extremities. No wounds seen anteriorly. Skin temperature with cool hands and toes. Not diaphoretic. HEAD: Atraumatic. Normocephalic. EYES: Pupils equal and round. No scleral icterus. No injection or drainage. Fundi not examined. ENT: Nose without bleeding or purulent drainage. NECK: Trachea midline. Supple, nontender. No palpable thyroid enlargement or nodularity. CARDIOVASCULAR: Regular rate and rhythm without murmurs, gallops, or rubs. No JVD. Peripheral pulses: Unable to detect DP or PT pulses. RESPIRATORY/CHEST: Symmetric, unlabored respirations on the ventilator. Scattered rales and a few rhonchi. GASTROINTESTINAL: Abdomen soft, non-tender, nondistended. No hepato-splenomegaly , or palpable masses. No guarding. Bowel sounds present. GENITOURINARY: Without palpable bladder distension. Jean catheter in place. MUSCULOSKELETAL: Extremities without clubbing, cyanosis, or edema. No joint tenderness or effusion noted. No calf tenderness. No mottling or clubbing. LYMPHATICS: No palpable cervical or supraclavicular adenopathy. NEUROLOGICAL: Does not respond to voice or touch. PSYCHIATRIC: Unable to assess due to clinical condition. Diagnostic Tests Laboratory: Laboratory Results - last 72 hr 05/04/18 05/04/18 05/04/18 07:34 07:40 07:40 WBC RBC Hgb Hct MCV MCH MCHC RDW Plt Count MPV Prelim Diff (Auto) Neut % (Auto) Lymph % (Auto) Reagan % (Auto) Eos % (Auto) Baso % (Auto) Neut # (Auto) Lymph # (Auto) Reagan # (Auto) Eos # (Auto) Baso # (Auto) WBC Differential Diff Scan Differential Comment PT INR APTT Puncture Site Patient Temperature O2 Saturation ABG pH ABG pCO2 ABG pO2 ABG HCO3 ABG O2 Content ABG Base Excess ABG Methemoglobin Yannick Test Hemoglobin Carboxyhemoglobin O2 Delivery Device Liter Flow Vent Setting Inspired O2 Critical Value Sodium 136 Potassium 5.1 Chloride 106 Carbon Dioxide 17.2 L Anion Gap 13 BUN 77 H Creatinine 2.99 H Estimated GFR 20 L POC Glucose 348 H Random Glucose 341 H Hemoglobin A1c Lactic Acid Calcium 8.4 L Prot Corrected Calcium Phosphorus Magnesium Total Bilirubin 0.9 AST 92 H ALT 30 Alkaline Phosphatase 98 Ammonia Total Creatine Kinase 596 H CK-MB (CK-2) 21.3 H CK-MB (CK-2) % 3.6 Troponin I 5.01 H* B-Natriuretic Peptide Total Protein 5.8 L Albumin 2.1 L Triglycerides Cholesterol LDL Cholesterol, Calc HDL Cholesterol Cholesterol/HDL Ratio Beta-Hydroxybutyric Acd TSH Urine Color Urine Clarity Urine pH Ur Specific [place] Urine Protein Urine Glucose (UA) Urine Ketones Urine Occult Blood Urine Nitrate Urine Bilirubin Urine Urobilinogen Ur Leukocyte Esterase Urine RBC Urine WBC Ur Squamous Epith Cells Amorphous Sediment Urine Bacteria Hyaline Casts Urine Mucus Micro UA Comment Urine Culture Comments Urine Eosinophils Nasal Screen MRSA (PCR) Blood Type Antibody Screen MTS Gel Crossmatch 05/04/18 05/04/18 05/04/18 07:40 08:30 08:30 WBC 14.6 H RBC 2.53 L Hgb 7.9 L Hct 23.9 L MCV 94.4 MCH 31.2 MCHC 33.1 RDW 13.0 Plt Count 298 MPV 7.9 Prelim Diff (Auto) Neut % (Auto) 85.0 H Lymph % (Auto) 6.6 L Reagan % (Auto) 8.0 Eos % (Auto) 0.1 Baso % (Auto) 0.3 Neut # (Auto) 12.4 H Lymph # (Auto) 1.0 Reagan # (Auto) 1.2 H Eos # (Auto) 0.0 Baso # (Auto) 0.0 WBC Differential . Diff Scan Differential Comment Auto diff final PT 10.7 INR 1.1 APTT 24.3 Puncture Site Patient Temperature O2 Saturation ABG pH ABG pCO2 ABG pO2 ABG HCO3 ABG O2 Content ABG Base Excess ABG Methemoglobin Yannick Test Hemoglobin Carboxyhemoglobin O2 Delivery Device Liter Flow Vent Setting Inspired O2 Critical Value Sodium Potassium Chloride Carbon Dioxide Anion Gap BUN Creatinine Estimated GFR POC Glucose Random Glucose Hemoglobin A1c Lactic Acid 2.7 H Calcium Prot Corrected Calcium Phosphorus Magnesium Total Bilirubin AST ALT Alkaline Phosphatase Ammonia Total Creatine Kinase CK-MB (CK-2) CK-MB (CK-2) % Troponin I B-Natriuretic Peptide Total Protein Albumin Triglycerides Cholesterol LDL Cholesterol, Calc HDL Cholesterol Cholesterol/HDL Ratio Beta-Hydroxybutyric Acd TSH Urine Color Urine Clarity Urine pH Ur Specific [place] Urine Protein Urine Glucose (UA) Urine Ketones Urine Occult Blood Urine Nitrate Urine Bilirubin Urine Urobilinogen Ur Leukocyte Esterase Urine RBC Urine WBC Ur Squamous Epith Cells Amorphous Sediment Urine Bacteria Hyaline Casts Urine Mucus Micro UA Comment Urine Culture Comments Urine Eosinophils Nasal Screen MRSA (PCR) Blood Type Antibody Screen MTS Gel Crossmatch 05/04/18 05/04/18 05/04/18 08:30 08:48 10:30 WBC RBC Hgb Hct MCV MCH MCHC RDW Plt Count MPV Prelim Diff (Auto) Neut % (Auto) Lymph % (Auto) Reagan % (Auto) Eos % (Auto) Baso % (Auto) Neut # (Auto) Lymph # (Auto) Reagan # (Auto) Eos # (Auto) Baso # (Auto) WBC Differential Diff Scan Differential Comment PT INR APTT Puncture Site Right radial Patient Temperature 98.6 O2 Saturation 88 L* ABG pH 7.29 L* ABG pCO2 33 L ABG pO2 68 ABG HCO3 15 L* ABG O2 Content 10.2 L ABG Base Excess -10.2 L ABG Methemoglobin 0.8 Yannick Test Present Hemoglobin 8.2 L Carboxyhemoglobin 1.9 O2 Delivery Device Simple mask Liter Flow 6.00 Vent Setting Not Reportable Inspired O2 Critical Value Yes Sodium Potassium Chloride Carbon Dioxide Anion Gap BUN Creatinine Estimated GFR POC Glucose Random Glucose Hemoglobin A1c Lactic Acid Calcium Prot Corrected Calcium Phosphorus Magnesium Total Bilirubin AST ALT Alkaline Phosphatase Ammonia Total Creatine Kinase CK-MB (CK-2) CK-MB (CK-2) % Troponin I B-Natriuretic Peptide 2359 H Total Protein Albumin Triglycerides Cholesterol LDL Cholesterol, Calc HDL Cholesterol Cholesterol/HDL Ratio Beta-Hydroxybutyric Acd TSH Urine Color Urine Clarity Urine pH Ur Specific [place] Urine Protein Urine Glucose (UA) Urine Ketones Urine Occult Blood Urine Nitrate Urine Bilirubin Urine Urobilinogen Ur Leukocyte Esterase Urine RBC Urine WBC Ur Squamous Epith Cells Amorphous Sediment Urine Bacteria Hyaline Casts Urine Mucus Micro UA Comment Urine Culture Comments Urine Eosinophils Nasal Screen MRSA (PCR) Blood Type A Positive Antibody Screen Negative MTS Gel Crossmatch 05/04/18 05/04/18 05/04/18 10:31 11:35 11:48 WBC RBC Hgb Hct MCV MCH MCHC RDW Plt Count MPV Prelim Diff (Auto) Neut % (Auto) Lymph % (Auto) Reagan % (Auto) Eos % (Auto) Baso % (Auto) Neut # (Auto) Lymph # (Auto) Reagan # (Auto) Eos # (Auto) Baso # (Auto) WBC Differential Diff Scan Differential Comment PT INR APTT Puncture Site Right radial Patient Temperature 98.6 O2 Saturation 89 L* ABG pH 7.12 L* ABG pCO2 49 H ABG pO2 81 ABG HCO3 15 L* ABG O2 Content 10.8 L ABG Base Excess -12.6 L ABG Methemoglobin 0.6 Yannick Test Present Hemoglobin 8.5 L Carboxyhemoglobin 1.3 O2 Delivery Device Vent Liter Flow Vent Setting [id number]/500/[id number] Inspired O2 100 Critical Value Yes Sodium Potassium Chloride Carbon Dioxide Anion Gap BUN Creatinine Estimated GFR POC Glucose 341 H Random Glucose Hemoglobin A1c Lactic Acid Calcium Prot Corrected Calcium Phosphorus Magnesium Total Bilirubin AST ALT Alkaline Phosphatase Ammonia Total Creatine Kinase CK-MB (CK-2) CK-MB (CK-2) % Troponin I B-Natriuretic Peptide Total Protein Albumin Triglycerides Cholesterol LDL Cholesterol, Calc HDL Cholesterol Cholesterol/HDL Ratio Beta-Hydroxybutyric Acd TSH Urine Color Kelsey Urine Clarity Hazy H Urine pH 5.0 Ur Specific [place] 1.020 Urine Protein 30 H Urine Glucose (UA) 50 Urine Ketones Negative Urine Occult Blood Negative Urine Nitrate Negative Urine Bilirubin Negative Urine Urobilinogen Less than 2 Ur Leukocyte Esterase Negative Urine RBC Less than 1 Urine WBC 2 Ur Squamous Epith Cells <1 Amorphous Sediment Rare H Urine Bacteria Rare H Hyaline Casts 25 Urine Mucus Few H Micro UA Comment Cath-culture ind Urine Culture Comments Cath-cult indicated Urine Eosinophils Nasal Screen MRSA (PCR) Blood Type Antibody Screen MTS Gel Crossmatch 05/04/18 05/04/18 05/04/18 12:15 12:35 12:35 WBC RBC Hgb Hct MCV MCH MCHC RDW Plt Count MPV Prelim Diff (Auto) Neut % (Auto) Lymph % (Auto) Reagan % (Auto) Eos % (Auto) Baso % (Auto) Neut # (Auto) Lymph # (Auto) Reagan # (Auto) Eos # (Auto) Baso # (Auto) WBC Differential Diff Scan Differential Comment PT 10.9 INR 1.1 APTT 25.3 Puncture Site Patient Temperature O2 Saturation ABG pH ABG pCO2 ABG pO2 ABG HCO3 ABG O2 Content ABG Base Excess ABG Methemoglobin Yannick Test Hemoglobin Carboxyhemoglobin O2 Delivery Device Liter Flow Vent Setting Inspired O2 Critical Value Sodium Potassium Chloride Carbon Dioxide Anion Gap BUN Creatinine Estimated GFR POC Glucose Random Glucose Hemoglobin A1c Lactic Acid 4.3 H* Calcium Prot Corrected Calcium Phosphorus Magnesium Total Bilirubin AST ALT Alkaline Phosphatase Ammonia Total Creatine Kinase CK-MB (CK-2) CK-MB (CK-2) % Troponin I 5.76 H* B-Natriuretic Peptide Total Protein Albumin Triglycerides Cholesterol LDL Cholesterol, Calc HDL Cholesterol Cholesterol/HDL Ratio Beta-Hydroxybutyric Acd TSH Urine Color Urine Clarity Urine pH Ur Specific [place] Urine Protein Urine Glucose (UA) Urine Ketones Urine Occult Blood Urine Nitrate Urine Bilirubin Urine Urobilinogen Ur Leukocyte Esterase Urine RBC Urine WBC Ur Squamous Epith Cells Amorphous Sediment Urine Bacteria Hyaline Casts Urine Mucus Micro UA Comment Urine Culture Comments Urine Eosinophils Nasal Screen MRSA (PCR) Blood Type Antibody Screen MTS Gel Crossmatch 05/04/18 05/04/18 05/04/18 12:35 14:40 14:58 WBC RBC Hgb Hct MCV MCH MCHC RDW Plt Count MPV Prelim Diff (Auto) Neut % (Auto) Lymph % (Auto) Reagan % (Auto) Eos % (Auto) Baso % (Auto) Neut # (Auto) Lymph # (Auto) Reagan # (Auto) Eos # (Auto) Baso # (Auto) WBC Differential Diff Scan Differential Comment PT INR APTT Puncture Site Right radial Patient Temperature 98.6 O2 Saturation 96 ABG pH 7.23 L* ABG pCO2 37 L ABG pO2 123 H ABG HCO3 15 L* ABG O2 Content 11.6 L ABG Base Excess -10.9 L ABG Methemoglobin 0.7 Yannick Test Present Hemoglobin 8.4 L Carboxyhemoglobin 1.4 O2 Delivery Device Vent Liter Flow Vent Setting [id number] Inspired O2 100 Critical Value Yes Sodium Potassium Chloride Carbon Dioxide Anion Gap BUN Creatinine Estimated GFR POC Glucose Random Glucose Hemoglobin A1c Lactic Acid Calcium Prot Corrected Calcium Phosphorus Magnesium Total Bilirubin AST ALT Alkaline Phosphatase Ammonia Total Creatine Kinase CK-MB (CK-2) CK-MB (CK-2) % Troponin I 5.87 H* B-Natriuretic Peptide Total Protein Albumin Triglycerides Cholesterol LDL Cholesterol, Calc HDL Cholesterol Cholesterol/HDL Ratio Beta-Hydroxybutyric Acd 0.79 H TSH Urine Color Urine Clarity Urine pH Ur Specific [place] Urine Protein Urine Glucose (UA) Urine Ketones Urine Occult Blood Urine Nitrate Urine Bilirubin Urine Urobilinogen Ur Leukocyte Esterase Urine RBC Urine WBC Ur Squamous Epith Cells Amorphous Sediment Urine Bacteria Hyaline Casts Urine Mucus Micro UA Comment Urine Culture Comments Urine Eosinophils Nasal Screen MRSA (PCR) Blood Type Antibody Screen MTS Gel Crossmatch 05/04/18 05/04/18 05/04/18 14:58 14:58 15:35 WBC 16.6 H RBC 2.73 L Hgb 8.4 L Hct 25.8 L MCV 94.7 MCH 30.9 MCHC 32.6 RDW 13.1 Plt Count 329 MPV 7.6 Prelim Diff (Auto) Neut % (Auto) Lymph % (Auto) Reagan % (Auto) Eos % (Auto) Baso % (Auto) Neut # (Auto) Lymph # (Auto) Reagan # (Auto) Eos # (Auto) Baso # (Auto) WBC Differential Diff Scan Differential Comment PT INR APTT 25.4 Puncture Site Patient Temperature O2 Saturation ABG pH ABG pCO2 ABG pO2 ABG HCO3 ABG O2 Content ABG Base Excess ABG Methemoglobin Yannick Test Hemoglobin Carboxyhemoglobin O2 Delivery Device Liter Flow Vent Setting Inspired O2 Critical Value Sodium Potassium Chloride Carbon Dioxide Anion Gap BUN Creatinine Estimated GFR POC Glucose Random Glucose Hemoglobin A1c Lactic Acid Calcium Prot Corrected Calcium Phosphorus Magnesium Total Bilirubin AST ALT Alkaline Phosphatase Ammonia Total Creatine Kinase CK-MB (CK-2) CK-MB (CK-2) % Troponin I B-Natriuretic Peptide Total Protein Albumin Triglycerides Cholesterol LDL Cholesterol, Calc HDL Cholesterol Cholesterol/HDL Ratio Beta-Hydroxybutyric Acd TSH Urine Color Urine Clarity Urine pH Ur Specific [place] Urine Protein Urine Glucose (UA) Urine Ketones Urine Occult Blood Urine Nitrate Urine Bilirubin Urine Urobilinogen Ur Leukocyte Esterase Urine RBC Urine WBC Ur Squamous Epith Cells Amorphous Sediment Urine Bacteria Hyaline Casts Urine Mucus Micro UA Comment Urine Culture Comments Urine Eosinophils Nasal Screen MRSA (PCR) Mrsa detected Blood Type Antibody Screen MTS Gel Crossmatch 05/04/18 05/04/1805/04/18 15:43 16:55 18:49 WBC RBC Hgb Hct MCV MCH MCHC RDW Plt Count MPV Prelim Diff (Auto) Neut % (Auto) Lymph % (Auto) Reagan % (Auto) Eos % (Auto) Baso % (Auto) Neut # (Auto) Lymph # (Auto) Reagan # (Auto) Eos # (Auto) Baso # (Auto) WBC Differential Diff Scan Differential Comment PT INR APTT Puncture Site Art line Patient Temperature 98.6 O2 Saturation 97 ABG pH 7.32 L ABG pCO2 35 L ABG pO2 240 H ABG HCO3 17 L ABG O2 Content 11.5 L ABG Base Excess -7.8 L ABG Methemoglobin 1.4 Yannick Test Present Hemoglobin 8.0 L Carboxyhemoglobin 1.1 O2 Delivery Device Ventilator Liter Flow Vent Setting 550/18/8peep Inspired O2 100 Critical Value No Sodium Potassium Chloride Carbon Dioxide Anion Gap BUN Creatinine Estimated GFR POC Glucose 398 H 428 H Random Glucose Hemoglobin A1c Lactic Acid Calcium Prot Corrected Calcium Phosphorus Magnesium Total Bilirubin AST ALT Alkaline Phosphatase Ammonia Total Creatine Kinase CK-MB (CK-2) CK-MB (CK-2) % Troponin I B-Natriuretic Peptide Total Protein Albumin Triglycerides Cholesterol LDL Cholesterol, Calc HDL Cholesterol Cholesterol/HDL Ratio Beta-Hydroxybutyric Acd TSH Urine Color Urine Clarity Urine pH Ur Specific [place] Urine Protein Urine Glucose (UA) Urine Ketones Urine Occult Blood Urine Nitrate Urine Bilirubin Urine Urobilinogen Ur Leukocyte Esterase Urine RBC Urine WBC Ur Squamous Epith Cells Amorphous Sediment Urine Bacteria Hyaline Casts Urine Mucus Micro UA Comment Urine Culture Comments Urine Eosinophils Nasal Screen MRSA (PCR) Blood Type Antibody Screen MTS Gel Crossmatch 05/04/18 05/04/18 05/04/18 19:39 19:57 20:35 WBC RBC Hgb Hct MCV MCH MCHC RDW Plt Count MPV Prelim Diff (Auto) Neut % (Auto) Lymph % (Auto) Reagan % (Auto) Eos % (Auto) Baso % (Auto) Neut # (Auto) Lymph # (Auto) Reagan # (Auto) Eos # (Auto) Baso # (Auto) WBC Differential Diff Scan Differential Comment PT INR APTT Puncture Site Patient Temperature O2 Saturation ABG pH ABG pCO2 ABG pO2 ABG HCO3 ABG O2 Content ABG Base Excess ABG Methemoglobin Yannick Test Hemoglobin Carboxyhemoglobin O2 Delivery Device Liter Flow Vent Setting Inspired O2 Critical Value Sodium 137 Potassium 4.6 Chloride 104 Carbon Dioxide 18.4 L Anion Gap 15 BUN 79 H Creatinine 3.33 H Estimated GFR 18 L POC Glucose 422 H 385 H Random Glucose 362 H Hemoglobin A1c Lactic Acid Calcium 8.5 Prot Corrected Calcium Phosphorus Magnesium Total Bilirubin 1.0 AST 147 H ALT 58 Alkaline Phosphatase 93 Ammonia Total Creatine Kinase CK-MB (CK-2) CK-MB (CK-2) % Troponin I B-Natriuretic Peptide Total Protein 6.1 L Albumin 2.2 L Triglycerides Cholesterol LDL Cholesterol, Calc HDL Cholesterol Cholesterol/HDL Ratio Beta-Hydroxybutyric Acd TSH Urine Color Urine Clarity Urine pH Ur Specific [place] Urine Protein Urine Glucose (UA) Urine Ketones Urine Occult Blood Urine Nitrate Urine Bilirubin Urine Urobilinogen Ur Leukocyte Esterase Urine RBC Urine WBC Ur Squamous Epith Cells Amorphous Sediment Urine Bacteria Hyaline Casts Urine Mucus Micro UA Comment Urine Culture Comments Urine Eosinophils Nasal Screen MRSA (PCR) Blood Type Antibody Screen MTS Gel Crossmatch 05/04/18 05/04/18 05/04/18 21:33 22:34 23:36 WBC RBC Hgb Hct MCV MCH MCHC RDW Plt Count MPV Prelim Diff (Auto) Neut % (Auto) Lymph % (Auto) Reagan % (Auto) Eos % (Auto) Baso % (Auto) Neut # (Auto) Lymph # (Auto) Reagan # (Auto) Eos # (Auto) Baso # (Auto) WBC Differential Diff Scan Differential Comment PT INR APTT Puncture Site Patient Temperature O2 Saturation ABG pH ABG pCO2 ABG pO2 ABG HCO3 ABG O2 Content ABG Base Excess ABG Methemoglobin Yannick Test Hemoglobin Carboxyhemoglobin O2 Delivery Device Liter Flow Vent Setting Inspired O2 Critical Value Sodium Potassium Chloride Carbon Dioxide Anion Gap BUN Creatinine Estimated GFR POC Glucose 418 H 349 H 330 H Random Glucose Hemoglobin A1c Lactic Acid Calcium Prot Corrected Calcium Phosphorus Magnesium Total Bilirubin AST ALT Alkaline Phosphatase Ammonia Total Creatine Kinase CK-MB (CK-2) CK-MB (CK-2) % Troponin I B-Natriuretic Peptide Total Protein Albumin Triglycerides Cholesterol LDL Cholesterol, Calc HDL Cholesterol Cholesterol/HDL Ratio Beta-Hydroxybutyric Acd TSH Urine Color Urine Clarity Urine pH Ur Specific [place] Urine Protein Urine Glucose (UA) Urine Ketones Urine Occult Blood Urine Nitrate Urine Bilirubin Urine Urobilinogen Ur Leukocyte Esterase Urine RBC Urine WBC Ur Squamous Epith Cells Amorphous Sediment Urine Bacteria Hyaline Casts Urine Mucus Micro UA Comment Urine Culture Comments Urine Eosinophils Nasal Screen MRSA (PCR) Blood Type Antibody Screen MTS Gel Crossmatch 05/05/18 05/05/18 05/05/18 00:36 01:45 02:37 WBC RBC Hgb Hct MCV MCH MCHC RDW Plt Count MPV Prelim Diff (Auto) Neut % (Auto) Lymph % (Auto) Reagan % (Auto) Eos % (Auto) Baso % (Auto) Neut # (Auto) Lymph # (Auto) Reagan # (Auto) Eos # (Auto) Baso # (Auto) WBC Differential Diff Scan Differential Comment PT INR APTT Puncture Site Patient Temperature O2 Saturation ABG pH ABG pCO2 ABG pO2 ABG HCO3 ABG O2 Content ABG Base Excess ABG Methemoglobin Yannick Test Hemoglobin Carboxyhemoglobin O2 Delivery Device Liter Flow Vent Setting Inspired O2 Critical Value Sodium Potassium Chloride Carbon Dioxide Anion Gap BUN Creatinine Estimated GFR POC Glucose 276 H 280 H 253 H Random Glucose Hemoglobin A1c Lactic Acid Calcium Prot Corrected Calcium Phosphorus Magnesium Total Bilirubin AST ALT Alkaline Phosphatase Ammonia Total Creatine Kinase CK-MB (CK-2) CK-MB (CK-2) % Troponin I B-Natriuretic Peptide Total Protein Albumin Triglycerides Cholesterol LDL Cholesterol, Calc HDL Cholesterol Cholesterol/HDL Ratio Beta-Hydroxybutyric Acd TSH Urine Color Urine Clarity Urine pH Ur Specific [place] Urine Protein Urine Glucose (UA) Urine Ketones Urine Occult Blood Urine Nitrate Urine Bilirubin Urine Urobilinogen Ur Leukocyte Esterase Urine RBC Urine WBC Ur Squamous Epith Cells Amorphous Sediment Urine Bacteria Hyaline Casts Urine Mucus Micro UA Comment Urine Culture Comments Urine Eosinophils Nasal Screen MRSA (PCR) Blood Type Antibody Screen MTS Gel Crossmatch 05/05/18 05/05/18 05/05/18 03:33 04:15 04:15 WBC 12.8 H RBC 2.41 L Hgb 7.6 L Hct 22.3 L MCV 92.5 MCH 31.3 MCHC 33.9 RDW 12.9 Plt Count 312 MPV 7.1 Prelim Diff (Auto) Neut % (Auto) 89.0 H Lymph % (Auto) 4.6 L Reagan % (Auto) 6.0 Eos % (Auto) 0.3 Baso % (Auto) 0.1 Neut # (Auto) 11.4 H Lymph # (Auto) 0.6 L Reagan # (Auto) 0.8 Eos # (Auto) 0.0 Baso # (Auto) 0.0 WBC Differential . Diff Scan Differential Comment Auto diff final PT INR APTT Puncture Site Patient Temperature O2 Saturation ABG pH ABG pCO2 ABG pO2 ABG HCO3 ABG O2 Content ABG Base Excess ABG Methemoglobin Yannick Test Hemoglobin Carboxyhemoglobin O2 Delivery Device Liter Flow Vent Setting Inspired O2 Critical Value Sodium 147 H D Potassium 2.8 L* D Chloride 120 H D Carbon Dioxide 13.3 L Anion Gap 14 BUN 63 H Creatinine 2.33 H Estimated GFR 27 L POC Glucose 260 H Random Glucose 157 H D Hemoglobin A1c Lactic Acid Calcium 5.8 L* D Prot Corrected Calcium 7.2 L* Phosphorus 2.4 L Magnesium 2.3 Total Bilirubin 0.8 AST 79 H ALT 34 Alkaline Phosphatase 56 Ammonia Total Creatine Kinase CK-MB (CK-2) CK-MB (CK-2) % Troponin I B-Natriuretic Peptide Total Protein 4.1 L D Albumin 1.7 L Triglycerides Cholesterol LDL Cholesterol, Calc HDL Cholesterol Cholesterol/HDL Ratio Beta-Hydroxybutyric Acd TSH Urine Color Urine Clarity Urine pH Ur Specific [place] Urine Protein Urine Glucose (UA) Urine Ketones Urine Occult Blood Urine Nitrate Urine Bilirubin Urine Urobilinogen Ur Leukocyte Esterase Urine RBC Urine WBC Ur Squamous Epith Cells Amorphous Sediment Urine Bacteria Hyaline Casts Urine Mucus Micro UA Comment Urine Culture Comments Urine Eosinophils Nasal Screen MRSA (PCR) Blood Type Antibody Screen MTS Gel Crossmatch 05/05/18 05/05/18 05/05/18 04:15 04:39 05:43 WBC RBC Hgb Hct MCV MCH MCHC RDW Plt Count MPV Prelim Diff (Auto) Neut % (Auto) Lymph % (Auto) Reagan % (Auto) Eos % (Auto) Baso % (Auto) Neut # (Auto) Lymph # (Auto) Reagan # (Auto) Eos # (Auto) Baso # (Auto) WBC Differential Diff Scan Differential Comment PT INR APTT Puncture Site Patient Temperature O2 Saturation ABG pH ABG pCO2 ABG pO2 ABG HCO3 ABG O2 Content ABG Base Excess ABG Methemoglobin Yannick Test Hemoglobin Carboxyhemoglobin O2 Delivery Device Liter Flow Vent Setting Inspired O2 Critical Value Sodium Potassium Chloride Carbon Dioxide Anion Gap BUN Creatinine Estimated GFR POC Glucose 255 H 239 H Random Glucose Hemoglobin A1c Lactic Acid 1.8 Calcium Prot Corrected Calcium Phosphorus Magnesium Total Bilirubin AST ALT Alkaline Phosphatase Ammonia Total Creatine Kinase CK-MB (CK-2) CK-MB (CK-2) % Troponin I B-Natriuretic Peptide Total Protein Albumin Triglycerides Cholesterol LDL Cholesterol, Calc HDL Cholesterol Cholesterol/HDL Ratio Beta-Hydroxybutyric Acd TSH Urine Color Urine Clarity Urine pH Ur Specific [place] Urine Protein Urine Glucose (UA) Urine Ketones Urine Occult Blood Urine Nitrate Urine Bilirubin Urine Urobilinogen Ur Leukocyte Esterase Urine RBC Urine WBC Ur Squamous Epith Cells Amorphous Sediment Urine Bacteria Hyaline Casts Urine Mucus Micro UA Comment Urine Culture Comments Urine Eosinophils Nasal Screen MRSA (PCR) Blood Type Antibody Screen MTS Gel Crossmatch 05/05/18 05/05/18 05/05/18 06:25 07:31 08:28 WBC RBC Hgb Hct MCV MCH MCHC RDW Plt Count MPV Prelim Diff (Auto) Neut % (Auto) Lymph % (Auto) Reagan % (Auto) Eos % (Auto) Baso % (Auto) Neut # (Auto) Lymph # (Auto) Reagan # (Auto) Eos # (Auto) Baso # (Auto) WBC Differential Diff Scan Differential Comment PT INR APTT Puncture Site Patient Temperature O2 Saturation ABG pH ABG pCO2 ABG pO2 ABG HCO3 ABG O2 Content ABG Base Excess ABG Methemoglobin Yannick Test Hemoglobin Carboxyhemoglobin O2 Delivery Device Liter Flow Vent Setting Inspired O2 Critical Value Sodium Potassium Chloride Carbon Dioxide Anion Gap BUN Creatinine Estimated GFR POC Glucose 241 H 223 H 247 H Random Glucose Hemoglobin A1c Lactic Acid Calcium Prot Corrected Calcium Phosphorus Magnesium Total Bilirubin AST ALT Alkaline Phosphatase Ammonia Total Creatine Kinase CK-MB (CK-2) CK-MB (CK-2) % Troponin I B-Natriuretic Peptide Total Protein Albumin Triglycerides Cholesterol LDL Cholesterol, Calc HDL Cholesterol Cholesterol/HDL Ratio Beta-Hydroxybutyric Acd TSH Urine Color Urine Clarity Urine pH Ur Specific [place] Urine Protein Urine Glucose (UA) Urine Ketones Urine Occult Blood Urine Nitrate Urine Bilirubin Urine Urobilinogen Ur Leukocyte Esterase Urine RBC Urine WBC Ur Squamous Epith Cells Amorphous Sediment Urine Bacteria Hyaline Casts Urine Mucus Micro UA Comment Urine Culture Comments Urine Eosinophils Nasal Screen MRSA (PCR) Blood Type Antibody Screen MTS Gel Crossmatch 05/05/18 05/05/18 05/05/18 09:10 09:45 10:52 WBC RBC Hgb Hct MCV MCH MCHC RDW Plt Count MPV Prelim Diff (Auto) Neut % (Auto) Lymph % (Auto) Reagan % (Auto) Eos % (Auto) Baso % (Auto) Neut # (Auto) Lymph # (Auto) Reagan # (Auto) Eos # (Auto) Baso # (Auto) WBC Differential Diff Scan Differential Comment PT INR APTT Puncture Site Patient Temperature O2 Saturation ABG pH ABG pCO2 ABG pO2 ABG HCO3 ABG O2 Content ABG Base Excess ABG Methemoglobin Yannick Test Hemoglobin Carboxyhemoglobin O2 Delivery Device Liter Flow Vent Setting Inspired O2 Critical Value Sodium Potassium Chloride Carbon Dioxide Anion Gap BUN Creatinine Estimated GFR POC Glucose 210 H 204 H Random Glucose Hemoglobin A1c Lactic Acid 2.5 H Calcium Prot Corrected Calcium Phosphorus Magnesium Total Bilirubin AST ALT Alkaline Phosphatase Ammonia Total Creatine Kinase CK-MB (CK-2) CK-MB (CK-2) % Troponin I B-Natriuretic Peptide Total Protein Albumin Triglycerides Cholesterol LDL Cholesterol, Calc HDL Cholesterol Cholesterol/HDL Ratio Beta-Hydroxybutyric Acd TSH Urine Color Urine Clarity Urine pH Ur Specific [place] Urine Protein Urine Glucose (UA) Urine Ketones Urine Occult Blood Urine Nitrate Urine Bilirubin Urine Urobilinogen Ur Leukocyte Esterase Urine RBC Urine WBC Ur Squamous Epith Cells Amorphous Sediment Urine Bacteria Hyaline Casts Urine Mucus Micro UA Comment Urine Culture Comments Urine Eosinophils Nasal Screen MRSA (PCR) Blood Type Antibody Screen MTS Gel Crossmatch 05/05/18 05/05/18 05/05/18 11:15 11:15 12:17 WBC RBC Hgb Hct MCV MCH MCHC RDW Plt Count MPV Prelim Diff (Auto) Neut % (Auto) Lymph % (Auto) Reagan % (Auto) Eos % (Auto) Baso % (Auto) Neut # (Auto) Lymph # (Auto) Reagan # (Auto) Eos # (Auto) Baso # (Auto) WBC Differential Diff Scan Differential Comment PT INR APTT Puncture Site Patient Temperature O2 Saturation ABG pH ABG pCO2 ABG pO2 ABG HCO3 ABG O2 Content ABG Base Excess ABG Methemoglobin Yannick Test Hemoglobin Carboxyhemoglobin O2 Delivery Device Liter Flow Vent Setting Inspired O2 Critical Value Sodium Potassium Chloride Carbon Dioxide Anion Gap BUN Creatinine Estimated GFR POC Glucose 199 H Random Glucose Hemoglobin A1c 9.5 H Lactic Acid Calcium Prot Corrected Calcium Phosphorus Magnesium Total Bilirubin AST ALT Alkaline Phosphatase Ammonia Total Creatine Kinase CK-MB (CK-2) CK-MB (CK-2) % Troponin I B-Natriuretic Peptide Total Protein Albumin Triglycerides 140 Cholesterol 84 L LDL Cholesterol, Calc 37 HDL Cholesterol 19.0 L Cholesterol/HDL Ratio 4.42 Beta-Hydroxybutyric Acd TSH Urine Color Urine Clarity Urine pH Ur Specific [place] Urine Protein Urine Glucose (UA) Urine Ketones Urine Occult Blood Urine Nitrate Urine Bilirubin Urine Urobilinogen Ur Leukocyte Esterase Urine RBC Urine WBC Ur Squamous Epith Cells Amorphous Sediment Urine Bacteria Hyaline Casts Urine Mucus Micro UA Comment Urine Culture Comments Urine Eosinophils Nasal Screen MRSA (PCR) Blood Type Antibody Screen MTS Gel Crossmatch 05/05/18 05/05/18 05/05/18 13:25 14:30 14:42 WBC RBC Hgb Hct MCV MCH MCHC RDW Plt Count MPV Prelim Diff (Auto) Neut % (Auto) Lymph % (Auto) Reagan % (Auto) Eos % (Auto) Baso % (Auto) Neut # (Auto) Lymph # (Auto) Reagan # (Auto) Eos # (Auto) Baso # (Auto) WBC Differential Diff Scan Differential Comment PT INR APTT Puncture Site Patient Temperature O2 Saturation ABG pH ABG pCO2 ABG pO2 ABG HCO3 ABG O2 Content ABG Base Excess ABG Methemoglobin Yannick Test Hemoglobin Carboxyhemoglobin O2 Delivery Device Liter Flow Vent Setting Inspired O2 Critical Value Sodium Potassium Chloride Carbon Dioxide Anion Gap BUN Creatinine Estimated GFR POC Glucose 200 H 199 H Random Glucose Hemoglobin A1c Lactic Acid Calcium Prot Corrected Calcium Phosphorus Magnesium Total Bilirubin AST ALT Alkaline Phosphatase Ammonia Total Creatine Kinase CK-MB (CK-2) CK-MB (CK-2) % Troponin I B-Natriuretic Peptide Total Protein Albumin Triglycerides Cholesterol LDL Cholesterol, Calc HDL Cholesterol Cholesterol/HDL Ratio Beta-Hydroxybutyric Acd TSH Urine Color Urine Clarity Urine pH Ur Specific [place] Urine Protein Urine Glucose (UA) Urine Ketones Urine Occult Blood Urine Nitrate Urine Bilirubin Urine Urobilinogen Ur Leukocyte Esterase Urine RBC Urine WBC Ur Squamous Epith Cells Amorphous Sediment Urine Bacteria Hyaline Casts Urine Mucus Micro UA Comment Urine Culture Comments Urine Eosinophils 0-2 H Nasal Screen MRSA (PCR) Blood Type Antibody Screen MTS Gel Crossmatch 05/05/18 05/05/18 05/05/18 14:45 15:44 16:21 WBC RBC Hgb Hct MCV MCH MCHC RDW Plt Count MPV Prelim Diff (Auto) Neut % (Auto) Lymph % (Auto) Reagan % (Auto) Eos % (Auto) Baso % (Auto) Neut # (Auto) Lymph # (Auto) Reagan # (Auto) Eos # (Auto) Baso # (Auto) WBC Differential Diff Scan Differential Comment PT INR APTT Puncture Site Patient Temperature O2 Saturation ABG pH ABG pCO2 ABG pO2 ABG HCO3 ABG O2 Content ABG Base Excess ABG Methemoglobin Yannick Test Hemoglobin Carboxyhemoglobin O2 Delivery Device Liter Flow Vent Setting Inspired O2 Critical Value Sodium Potassium 4.3 D Chloride Carbon Dioxide Anion Gap BUN Creatinine Estimated GFR POC Glucose 221 H 210 H Random Glucose Hemoglobin A1c Lactic Acid Calcium Prot Corrected Calcium Phosphorus Magnesium Total Bilirubin AST ALT Alkaline Phosphatase Ammonia Total Creatine Kinase CK-MB (CK-2) CK-MB (CK-2) % Troponin I B-Natriuretic Peptide Total Protein Albumin Triglycerides Cholesterol LDL Cholesterol, Calc HDL Cholesterol Cholesterol/HDL Ratio Beta-Hydroxybutyric Acd TSH Urine Color Urine Clarity Urine pH Ur Specific [place] Urine Protein Urine Glucose (UA) Urine Ketones Urine Occult Blood Urine Nitrate Urine Bilirubin Urine Urobilinogen Ur Leukocyte Esterase Urine RBC Urine WBC Ur Squamous Epith Cells Amorphous Sediment Urine Bacteria Hyaline Casts Urine Mucus Micro UA Comment Urine Culture Comments Urine Eosinophils Nasal Screen MRSA (PCR) Blood Type Antibody Screen [facility] Gel Crossmatch 05/05/18 05/05/18 05/05/18 17:03 18:10 19:23 WBC RBC Hgb Hct MCV MCH MCHC RDW Plt Count MPV Prelim Diff (Auto) Neut % (Auto) Lymph % (Auto) Reagan % (Auto) Eos % (Auto) Baso % (Auto) Neut # (Auto) Lymph # (Auto) Reagan # (Auto) Eos # (Auto) Baso # (Auto) WBC Differential Diff Scan Differential Comment PT INR APTT Puncture Site Patient Temperature O2 Saturation ABG pH ABG pCO2 ABG pO2 ABG HCO3 ABG O2 Content ABG Base Excess ABG Methemoglobin Yannick Test Hemoglobin Carboxyhemoglobin O2 Delivery Device Liter Flow Vent Setting Inspired O2 Critical Value Sodium Potassium Chloride Carbon Dioxide Anion Gap BUN Creatinine Estimated GFR POC Glucose 219 H 214 H 232 H Random Glucose Hemoglobin A1c Lactic Acid Calcium Prot Corrected Calcium Phosphorus Magnesium Total Bilirubin AST ALT Alkaline Phosphatase Ammonia Total Creatine Kinase CK-MB (CK-2) CK-MB (CK-2) % Troponin I B-Natriuretic Peptide Total Protein Albumin Triglycerides Cholesterol LDL Cholesterol, Calc HDL Cholesterol Cholesterol/HDL Ratio Beta-Hydroxybutyric Acd TSH Urine Color Urine Clarity Urine pH Ur Specific [place] Urine Protein Urine Glucose (UA) Urine Ketones Urine Occult Blood Urine Nitrate Urine Bilirubin Urine Urobilinogen Ur Leukocyte Esterase Urine RBC Urine WBC Ur Squamous Epith Cells Amorphous Sediment Urine Bacteria Hyaline Casts Urine Mucus Micro UA Comment Urine Culture Comments Urine Eosinophils Nasal Screen MRSA (PCR) Blood Type Antibody Screen MTS Gel Crossmatch 05/05/18 05/05/18 05/05/18 19:58 21:17 23:09 WBC RBC Hgb Hct MCV MCH MCHC RDW Plt Count MPV Prelim Diff (Auto) Neut % (Auto) Lymph % (Auto) Reagan % (Auto) Eos % (Auto) Baso % (Auto) Neut # (Auto) Lymph # (Auto) Reagan # (Auto) Eos # (Auto) Baso # (Auto) WBC Differential Diff Scan Differential Comment PT INR APTT Puncture Site Patient Temperature O2 Saturation ABG pH ABG pCO2 ABG pO2 ABG HCO3 ABG O2 Content ABG Base Excess ABG Methemoglobin Ynanick Test Hemoglobin Carboxyhemoglobin O2 Delivery Device Liter Flow Vent Setting Inspired O2 Critical Value Sodium Potassium Chloride Carbon Dioxide Anion Gap BUN Creatinine Estimated GFR POC Glucose 240 H 251 H 246 H Random Glucose Hemoglobin A1c Lactic Acid Calcium Prot Corrected Calcium Phosphorus Magnesium Total Bilirubin AST ALT Alkaline Phosphatase Ammonia Total Creatine Kinase CK-MB (CK-2) CK-MB (CK-2) % Troponin I B-Natriuretic Peptide Total Protein Albumin Triglycerides Cholesterol LDL Cholesterol, Calc HDL Cholesterol Cholesterol/HDL Ratio Beta-Hydroxybutyric Acd TSH Urine Color Urine Clarity Urine pH Ur Specific [place] Urine Protein Urine Glucose (UA) Urine Ketones Urine Occult Blood Urine Nitrate Urine Bilirubin Urine Urobilinogen Ur Leukocyte Esterase Urine RBC Urine WBC Ur Squamous Epith Cells Amorphous Sediment Urine Bacteria Hyaline Casts Urine Mucus Micro UA Comment Urine Culture Comments Urine Eosinophils Nasal Screen MRSA (PCR) Blood Type Antibody Screen MTS Gel Crossmatch 05/06/18 05/06/18 05/06/18 00:31 03:40 03:40 WBC 11.0 RBC 2.10 L Hgb 6.6 L* Hct 20.1 L* MCV 95.6 MCH 31.4 MCHC 32.8 RDW 13.7 Plt Count 243 MPV 7.8 Prelim Diff (Auto) Slide review pending Neut % (Auto) 88.5 H Lymph % (Auto) 5.4 L Reagan % (Auto) 5.6 Eos % (Auto) 0.3 Baso % (Auto) 0.2 Neut # (Auto) 9.8 H Lymph # (Auto) 0.6 L Reagan # (Auto) 0.6 Eos # (Auto) 0.0 Baso # (Auto) 0.0 WBC Differential . Diff Scan Auto diff confirmed Differential Comment . PT INR APTT Puncture Site Patient Temperature O2 Saturation ABG pH ABG pCO2 ABG pO2 ABG HCO3 ABG O2 Content ABG Base Excess ABG Methemoglobin Yannick Test Hemoglobin Carboxyhemoglobin O2 Delivery Device Liter Flow Vent Setting Inspired O2 Critical Value Sodium 139 Potassium 5.0 Chloride 107 D Carbon Dioxide 13.2 L Anion Gap 19 H BUN 84 H Creatinine 3.82 H Estimated GFR 15 L POC Glucose 252 H Random Glucose 272 H D Hemoglobin A1c Lactic Acid Calcium 7.5 L D Prot Corrected Calcium Phosphorus 5.4 H D Magnesium 3.1 H D Total Bilirubin 1.7 H AST 97 H ALT 50 Alkaline Phosphatase 78 Ammonia Total Creatine Kinase CK-MB (CK-2) CK-MB (CK-2) % Troponin I B-Natriuretic Peptide Total Protein 5.9 L D Albumin 2.6 L D Triglycerides Cholesterol LDL Cholesterol, Calc HDL Cholesterol Cholesterol/HDL Ratio Beta-Hydroxybutyric Acd TSH 3.520 Urine Color Urine Clarity Urine pH Ur Specific [place] Urine Protein Urine Glucose (UA) Urine Ketones Urine Occult Blood Urine Nitrate Urine Bilirubin Urine Urobilinogen Ur Leukocyte Esterase Urine RBC Urine WBC Ur Squamous Epith Cells Amorphous Sediment Urine Bacteria Hyaline Casts Urine Mucus Micro UA Comment Urine Culture Comments Urine Eosinophils Nasal Screen MRSA (PCR) Blood Type Antibody Screen MTS Gel Crossmatch 05/06/18 05/06/18 05/06/18 03:40 03:50 04:56 WBC RBC Hgb Hct MCV MCH MCHC RDW Plt Count MPV Prelim Diff (Auto) Neut % (Auto) Lymph % (Auto) Reagan % (Auto) Eos % (Auto) Baso % (Auto) Neut # (Auto) Lymph # (Auto) Reagan # (Auto) Eos # (Auto) Baso # (Auto) WBC Differential Diff Scan Differential Comment PT INR APTT Puncture Site Patient Temperature O2 Saturation ABG pH ABG pCO2 ABG pO2 ABG HCO3 ABG O2 Content ABG Base Excess ABG Methemoglobin Yannick Test Hemoglobin Carboxyhemoglobin O2 Delivery Device Liter Flow Vent Setting Inspired O2 Critical Value Sodium Potassium Chloride Carbon Dioxide Anion Gap BUN Creatinine Estimated GFR POC Glucose 306 H Random Glucose Hemoglobin A1c Lactic Acid Calcium Prot Corrected Calcium Phosphorus Magnesium Total Bilirubin AST ALT Alkaline Phosphatase Ammonia 45 H Total Creatine Kinase CK-MB (CK-2) CK-MB (CK-2) % Troponin I B-Natriuretic Peptide Total Protein Albumin Triglycerides Cholesterol LDL Cholesterol, Calc HDL Cholesterol Cholesterol/HDL Ratio Beta-Hydroxybutyric Acd TSH Urine Color Urine Clarity Urine pH Ur Specific [place] Urine Protein Urine Glucose (UA) Urine Ketones Urine Occult Blood Urine Nitrate Urine Bilirubin Urine Urobilinogen Ur Leukocyte Esterase Urine RBC Urine WBC Ur Squamous Epith Cells Amorphous Sediment Urine Bacteria Hyaline Casts Urine Mucus Micro UA Comment Urine Culture Comments Urine Eosinophils Nasal Screen MRSA (PCR) Blood Type Antibody Screen MTS Gel Crossmatch See Detail 05/06/18 05/06/18 05/06/18 05:30 07:06 07:35 WBC RBC Hgb Hct MCV MCH MCHC RDW Plt Count MPV Prelim Diff (Auto) Neut % (Auto) Lymph % (Auto) Reagan % (Auto) Eos % (Auto) Baso % (Auto) Neut # (Auto) Lymph # (Auto) Reagan # (Auto) Eos # (Auto) Baso # (Auto) WBC Differential Diff Scan Differential Comment PT INR APTT Puncture Site Art line Patient Temperature 98.6 O2 Saturation 94 ABG pH 7.19 L* ABG pCO2 29 L ABG pO2 105 ABG HCO3 11 L* ABG O2 Content 12.6 ABG Base Excess -15.8 L ABG Methemoglobin 1.3 Yannick Test Present Hemoglobin 9.4 L Carboxyhemoglobin 1.1 O2 Delivery Device Ventilator Liter Flow Vent Setting See comments Inspired O2 40 Critical Value Yes Sodium Potassium Chloride Carbon Dioxide Anion Gap BUN Creatinine Estimated GFR POC Glucose 310 H Random Glucose Hemoglobin A1c Lactic Acid Calcium Prot Corrected Calcium Phosphorus Magnesium Total Bilirubin AST ALT Alkaline Phosphatase Ammonia Total Creatine Kinase CK-MB (CK-2) CK-MB (CK-2) % Troponin I B-Natriuretic Peptide Total Protein Albumin Triglycerides Cholesterol LDL Cholesterol, Calc HDL Cholesterol Cholesterol/HDL Ratio Beta-Hydroxybutyric Acd TSH Urine Color Urine Clarity Urine pH Ur Specific [place] Urine Protein Urine Glucose (UA) Urine Ketones Urine Occult Blood Urine Nitrate Urine Bilirubin Urine Urobilinogen Ur Leukocyte Esterase Urine RBC Urine WBC Ur Squamous Epith Cells Amorphous Sediment Urine Bacteria Hyaline Casts Urine Mucus Micro UA Comment Urine Culture Comments Urine Eosinophils Nasal Screen MRSA (PCR) Blood Type Antibody Screen MTS Gel Crossmatch See Detail 05/06/18 05/06/18 05/06/18 07:57 10:00 11:41 WBC RBC Hgb Hct MCV MCH MCHC RDW Plt Count MPV Prelim Diff (Auto) Neut % (Auto) Lymph % (Auto) Reagan % (Auto) Eos % (Auto) Baso % (Auto) Neut # (Auto) Lymph # (Auto) Reagan # (Auto) Eos # (Auto) Baso # (Auto) WBC Differential Diff Scan Differential Comment PT INR APTT Puncture Site Right radial Patient Temperature 98.6 O2 Saturation 93 ABG pH 7.37 L ABG pCO2 23 L* ABG pO2 80 ABG HCO3 13 L* ABG O2 Content 14.8 ABG Base Excess -11.0 L ABG Methemoglobin 1.4 Yannick Test Present Hemoglobin 11.2 L Carboxyhemoglobin 1.4 O2 Delivery Device Ventilator Liter Flow Vent Setting Inspired O2 40 Critical Value Yes Sodium Potassium Chloride Carbon Dioxide Anion Gap BUN Creatinine Estimated GFR POC Glucose 332 H Random Glucose Hemoglobin A1c Lactic Acid 4.6 H* Calcium Prot Corrected Calcium Phosphorus Magnesium Total Bilirubin AST ALT Alkaline Phosphatase Ammonia Total Creatine Kinase CK-MB (CK-2) CK-MB (CK-2) % Troponin I B-Natriuretic Peptide Total Protein Albumin Triglycerides Cholesterol LDL Cholesterol, Calc HDL Cholesterol Cholesterol/HDL Ratio Beta-Hydroxybutyric Acd TSH Urine Color Urine Clarity Urine pH Ur Specific [place] Urine Protein Urine Glucose (UA) Urine Ketones Urine Occult Blood Urine Nitrate Urine Bilirubin Urine Urobilinogen Ur Leukocyte Esterase Urine RBC Urine WBC Ur Squamous Epith Cells Amorphous Sediment Urine Bacteria Hyaline Casts Urine Mucus Micro UA Comment Urine Culture Comments Urine Eosinophils Nasal Screen MRSA (PCR) Blood Type Antibody Screen MTS Gel Crossmatch 05/06/18 13:40 WBC RBC Hgb Hct MCV MCH MCHC RDW Plt Count MPV Prelim Diff (Auto) Neut % (Auto) Lymph % (Auto) Reagan % (Auto) Eos % (Auto) Baso % (Auto) Neut # (Auto) Lymph # (Auto) Reagan # (Auto) Eos # (Auto) Baso # (Auto) WBC Differential Diff Scan Differential Comment PT INR APTT Puncture Site Patient Temperature O2 Saturation ABG pH ABG pCO2 ABG pO2 ABG HCO3 ABG O2 Content ABG Base Excess ABG Methemoglobin Yannick Test Hemoglobin Carboxyhemoglobin O2 Delivery Device Liter Flow Vent Setting Inspired O2 Critical Value Sodium 141 Potassium 4.7 Chloride 104 Carbon Dioxide 16.6 L Anion Gap 20 H BUN 85 H Creatinine 4.19 H Estimated GFR 14 L POC Glucose Random Glucose 303 H Hemoglobin A1c Lactic Acid Calcium 7.6 L Prot Corrected Calcium Phosphorus Magnesium Total Bilirubin AST ALT Alkaline Phosphatase Ammonia Total Creatine Kinase CK-MB (CK-2) CK-MB (CK-2) % Troponin I B-Natriuretic Peptide Total Protein Albumin Triglycerides Cholesterol LDL Cholesterol, Calc HDL Cholesterol Cholesterol/HDL Ratio Beta-Hydroxybutyric Acd TSH Urine Color Urine Clarity Urine pH Ur Specific [place] Urine Protein Urine Glucose (UA) Urine Ketones Urine Occult Blood Urine Nitrate Urine Bilirubin Urine Urobilinogen Ur Leukocyte Esterase Urine RBC Urine WBC Ur Squamous Epith Cells Amorphous Sediment Urine Bacteria Hyaline Casts Urine Mucus Micro UA Comment Urine Culture Comments Urine Eosinophils Nasal Screen MRSA (PCR) Blood Type Antibody Screen MTS Gel Crossmatch Result Diagrams: 05/06/18 03:40 05/06/18 13:40 Microbiology: Microbiology 05/04/18 07:55 Aerobic Blood Culture - Preliminary Blood - Peripheral No growth in 2 days Anaerobic Blood Culture - Preliminary No growth in 2 days 05/04/18 07:40 Aerobic Blood Culture - Preliminary Blood - Peripheral No growth in 2 days Anaerobic Blood Culture - Preliminary No growth in 2 days 05/04/18 12:45 Gram Stain - Final Sputum - Endotracheal Sputum Culture - Final Heavy growth normal respiratory lee 05/04/18 11:35 Urine Culture - Final Catheterized Urine No growth in 48 hours Imaging: Abdomen/Bladder Ultrasound 05/05/18 00:00 CONCLUSION: 1. Kidneys are slightly echogenic which can be seen with medical renal disease. 2. Minimal ascites. Head CT 05/05/18 00:00 CONCLUSION: 1. Large hypodense area in the right cerebellum characteristic of an infarct. Age is uncertain. MRI should be considered for further evaluation. 2. No evidence of supratentorial acute infarct, hemorrhage, mass or edema. 3. 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 Chest X-Ray 05/06/18 06:00 CONCLUSION: Slight improvement of bilateral patchy airspace disease. Procedures: INTUBATION Patient/Family Conference Present at Family Conference: Son Vishal present in person, then daughters Divina, and Nancy, and Julita conferenced by telephone individually. Family Conference Time: 66 Family Conference Location: Consult Room, Telephone Issues Discussed: * Palliative care role, purpose, approach * Additional medical, psychosocial, and spiritual history * Patients general health, functional status, and cognitive changes in the months leading up to the current hospitalization * Patient/family understanding of the current medical problems * Patient/family understanding of prognosis * Patients goals of care as best understood from advance directives and/or conversations and/or values * Current medical treatment options and benefits/burdens of those options * Likely scenarios comparing ongoing aggressive care with a transition to comfort measures only * Questions answered to the best of my ability * Palliative care contact information provided Assessment and Plan - Disease Oriented Problem List (1) Respiratory failure (2) Cardiogenic shock (3) Renal failure (4) Severe sepsis (5) Closed fracture of right hip (6) Diabetes mellitus (7) Congestive heart failure (8) Acute renal failure (ARF) (9) Paroxysmal atrial fibrillation - Symptom Scale (1) Dyspnea 0-10 Scale: Unable to quantify (2) Pain 0-10 Scale: Unable to quantify Pertinent Non-Medical Issues: Psychosocial: Born in [place] but moved to [place] about 45 years ago. Was living independently and still driving until his fall and hip fracture on . He has been for 45 years, and has 1 son and 3 daughters. He was a professional airplane pilot commercial. Spiritual: Jainism background, and spirituality has been very important for him over the years. The son believes he would like a rn bone marrow transplant visit. Legal: The patient lacks capacity for decision-making, and it is unclear whether he will regain that. In the absence of a spouse and any written advanced directives, decision making falls to the majority of his 4 children, all of whom are available and willing to participate in the decision-making. All have agreed that son Vishal Jerome will be the point of crack off person for those involved in his healthcare here. Ethical issues impacting care: The patient is unable to make his own decisions at this time Important Contacts: Son: Vishal Jerome (the primary point of contact for the family): [phone] Daughter: Divina Alvares: [phone] Daughter: Nancy Tejada [phone] Daughter: Julita Jagdeep: [phone] Code Status: Alternative Code (Intubation only) Plan: * ALTERNATE CODE, intubation only; per request of all 4 of the patient's children 05/06/18 * DECISION-MAKING: The patient lacks capacity for decision-making, and it is unclear whether he will regain that. In the absence of a spouse and any written advanced directives, decision making falls to the majority of his 4 children, all of whom are available and willing to participate in the decision- making. All have agreed that son Vishal Jerome will be the point of crack off person for those involved in his healthcare here. (I telephoned both [facility] and [facility], where the patient had been admitted last summer with his stroke, to inquire as to any advanced directives, and there were none; the patient's daughter Divina confirmed that the patient had no healthcare surrogate completed.) * GOALS: I met in the consult room with the patient's son Vishal, and then telephoned each of his 3 daughters, Divina, Nancy, and Julita. I updated all of them on the patient's condition and prognosis. They all agree that they want to change to Alternate CODE STATUS, intubation only. They are aware that he is at high risk for , and they are aware that a decision regarding "how long we will want to keep doing all these things to him" may be forthcoming in the upcoming hours or days. * SYMPTOMS: The patient remains mechanically ventilated and sedated. His dyspnea and any discomfort is being managed via the dedicated regional driver. I have no further medication recommendations at this time. * Material Control Clerk consult placed. * The family is aware that the patient's renal failure is reaching a significant point, that the patient has multisystem organ failure, and the questions of dialysis and further aggressive care versus a transition to comfort measures and possible withdrawal of life support may all be faced by them in the upcoming day or 2. * Palliative Care will continue to follow the patient during this hospitalization. Time Spent Total Floor Time (mins): 96 Face to Face Time (mins): 20 >50% Time in Counseling or Coordination of Care: Yes (d/w Dr. Swift and with RN) Appreciation Thank you for the opportunity to participate in the care of Damir Jerome.
--- NOTE | 2018-05-06 17:55 | MB ---
cc: Brenda Braun MD, Dalia MD DATE: 05/06/2018 REASON FOR CONSULTATION: Change in mental status, history of stroke. HISTORY OF PRESENT ILLNESS: This is an 82-year-old gentleman with a history of COPD on home O2, diabetes, chronic renal disease discharged apparently on 05/03 after right hip replacement, brought to the ER, the date of admission 05/04/2018 from a senior care for hyperglycemia, worsening shortness of breath and hypotension. Sats were in the 80s. Placed on nonrebreather, given some fluids for hypotension, given aspirin rectally. Chest x-ray showing pulmonary edema. He was started on IV heparin. Cardiology was consulted. He became hypoxic and on a nonrebreather, apparently was intubated. The patient is currently sedated on Versed, Levophed, vasopressin, given bicarbonate overnight. Worsening renal creatinine. He also received 1 unit PRBCs for hemoglobin of 6.6. PHYSICAL EXAMINATION: Temperature is 97.5 axillary, pulse 85, respiratory rate 20. It is variable. Blood pressure 89/55, saturating at 95%. He is intubated ventilated, sedated, overbreathing the ventilator. Pupils are 1 mm to 0.5. No gaze deviation. Does not follow. Has a basically comatose exam. Sedated exam. Does not withdraw to painful stimuli. LABORATORY DATA: Reviewed. His hemoglobin earlier this morning was 6.6, platelets are 243,000, white count 11. Coag panel unremarkable. Chemistry: Creatinine is 4.19, GFR is 14, glucose 315. Lactic acid 5.4. TSH was normal. Albumin 2.6. Urine reviewed. IMAGING STUDIES: CT was showing a large right cerebellar infarct, age is indeterminate. However, after verification I believe it is old. There may be a basal ganglionic old infarct on the right as well. His echo shows an ejection fraction of 35-40%. Please refer to report. His last electroencephalogram showed slowing consistent with encephalopathy. No epileptic activity. IMPRESSION: Ongoing encephalopathy in an 82-year-old male with sepsis, renal insufficiency, history of stroke. Agree to obtain an MRI. Unfortunately cannot give him antiplatelets due to his gastrointestinal issues. MRI can be done when he is stable to see if he has had any new infarcts. However, at this point in time given his other medical problems, his prognosis is poor. Further recommendations will be made if needed. Please call me with any questions and/or concerns. MD TU Quijano/ , 05:29 PM , 05:53 PM
[2018-05-06 18:58] LABS: Hematocrit 27.3 % (39.0-51.0); Hemoglobin 9.1 gm/dL (13.0-17.0)
[2018-05-06] MEDS: Vasopressin Inj 40 UNIT in Dextrose 5% in Water Inj 98 ML IV.CONT SCH ×2 (21:24)
[2018-05-07] MEDS: Norepinephrine Inj 4 MG in Sodium Chlor 0.9% Inj 246 ML IV.SIG PRN ×2 (00:56→08:10)
[2018-05-07] MEDS: Piperacil/Tazo 3.375 GM Premix 50 ML IV.SIG SCH ×3 (02:32→12:22)
[2018-05-07] MEDS: Hypromellose 0.3% Opth Gel 10 GM Bottle EACH EYE SCH ×3 (02:35→17:08)
[2018-05-07] MEDS: WATER FOR INJ IV.SIG SCH ×3 (02:55→18:26)
[2018-05-07] MEDS: STERILE IV.SIG SCH ×3 (02:55→18:26)
[2018-05-07] MEDS: SODIUM BICARBONATE IV.SIG SCH ×3 (02:55→18:26)
[2018-05-07] MEDS: Chlorhexidine Gluconate 2% 1 Pack (2 Cloths) TOPICAL SCH (04:44)
[2018-05-07] MEDS: Oral Hygiene Kit OROPHARYNG SCH ×4 (04:44→15:56)
[2018-05-07] MEDS: Insulin NovoLOG Aspart Correctional Sugar Inj SQ SCH ×3 (04:44→12:22)
[2018-05-07 05:34] LABS: Baso % (Auto) 0.2 % (0.0-2.0); Eos % (Auto) 0.1 % (0.0-4.0); Hematocrit 31.7 % (39.0-51.0); Hemoglobin 10.5 gm/dL (13.0-17.0); Lymph # (Auto) 0.4 th/mm3 (1.0-4.8); Lymph % (Auto) 1.9 % (9.0-44.0); Mean Corpuscular HGB Conc 33.2 % (32.0-36.0); Mean Corpuscular Hemoglobin 30.2 pg (27.0-34.0); Mean Corpuscular Volume 91.1 fL (80.0-100.0); Mean Platelet Volume 8.3 fL (7.0-11.0); Mono # (Auto) 0.9 th/mm3 (0.0-0.9); Mono % (Auto) 4.4 % (0.0-8.0); Neut # (Auto) 20.3 th/mm3 (1.8-7.7); Neut % (Auto) 93.4 % (16.0-70.0); Platelet Count 326 th/mm3 (150-450); Red Blood Count 3.47 mil/mm3 (4.50-5.90); White Blood Count 21.7 th/mm3 (4.0-11.0)
[2018-05-07] MEDS: Hydrocortisone Sod Succinate 100 MG Vial IV.PUSH SCH ×3 (06:06→17:07)
[2018-05-07 07:19] LABS: Calcium 7.4 mg/dL (8.5-10.1); Carbon Dioxide 15.3 meq/L (21.0-32.0); Phosphorus 7.2 mg/dL (2.5-4.9); Potassium 4.4 meq/L (3.5-5.1); Total Protein 5.5 g/dL (6.4-8.2); Vancomycin,Random 13.3 Comment
[2018-05-07] MEDS: Amiodarone Inj 450 MG in Sodium Chlor 0.9% Inj 241 ML IV.CONT SCH (08:12)
[2018-05-07 08:20] LABS: Lymphocytes 1 % (9-44); Monocytes 6 % (0-8); Myelocytes 2 % (0-0); Tallied Nucleated RBC 3 (0-0)
[2018-05-07] MEDS: Insulin Detemir Inj 1,000 UNIT/10 ML Vial SQ SCH (08:20)
[2018-05-07 08:21] LABS: Platelet Estimate Normal (Normal); Platelet Morphology Normal (Normal)
[2018-05-07] MEDS: Senna/Docusate Sodium 8.6/50 MG Tablet PO SCH (08:21)
[2018-05-07 08:22] LABS: Acanthocytes Occ
[2018-05-07 10:56] LABS: CKMB Percent 0.8 % (0.0-4.0); Creatine Kinase MB 10.7 ng/mL (0.5-3.6)
[2018-05-07] MEDS ORDERED: Norepinephrine Inj 16 MG in Sodium Chlor 0.9% Inj 234 ML IV.CONT PRN (11:18)
[2018-05-07 12:00] LABS: Hepatitis A IgM Antibody Nonreactive (Nonreactive); Hepatitits B Surface Antigen Nonreactive (Nonreactive)
[2018-05-07] MEDS: Chlorhexidine 0.12% Oral Kit 15 ML UDC OROPHARYNG SCH (12:07)
[2018-05-07] MEDS ORDERED: Insulin Regular (For Infusion) 100 UNIT in Sodium Chlor 0.9% Inj 99 ML IV.CONT PRN (12:38)
[2018-05-07] MEDS ORDERED: Dextrose 50% in Water 50 ML Vial IV.PUSH PRN (12:38)
[2018-05-07] MEDS ORDERED: Vancomycin Inj 2,000 MG in Sodium Chlor 0.9% Inj 500 ML IV.SIG ONE (13:00)
--- NOTE | 2018-05-07 13:24 | P.PNNP ---
Subjective Interval history: Pt remains intubated, sedated, and on multiple pressor support. Son present in room. Physical Exam Vital signs: Vital Signs 05/06/18 15:26 05/06/18 15:27 05/06/18 16:00 Temperature 97.5 F L Pulse Rate 97 H 85 Respiratory Rate 21 20 20 Blood Pressure 89/55 L Pulse Oximetry 95 05/06/18 19:47 05/06/18 20:00 05/06/18 23:45 Temperature 98.1 F Pulse Rate 78 78 76 Respiratory Rate 20 20 22 Blood Pressure 94/67 L Pulse Oximetry 97 97 05/07/18 00:00 05/07/18 01:12 05/07/18 03:36 Temperature 98.4 F Pulse Rate 74 101 H Respiratory Rate 20 21 21 Blood Pressure 98/55 L Pulse Oximetry 98 97 05/07/18 04:00 05/07/18 04:19 05/07/18 08:00 Temperature 98.3 F Pulse Rate 101 H Respiratory Rate 20 21 Blood Pressure 113/69 Pulse Oximetry 96 95 95 05/07/18 09:00 05/07/18 09:11 05/07/18 10:49 Temperature Pulse Rate 74 75 Respiratory Rate 20 20 Blood Pressure Pulse Oximetry 95 97 05/07/18 12:54 Temperature Pulse Rate Respiratory Rate 20 Blood Pressure Pulse Oximetry 97 Intake & Output 05/06/18 05/07/18 05/07/18 18:59 06:59 18:59 Intake Total 2910 / 2910 1993 1500 / 1500 Output Total 100 / 100 Balance 2810 / 2810 1993 1500 / 1500 Weight 105 kg Intake: IV 1999 1850 / 1850 1500 / 1500 Cordarone Inj 450 MG In NS Inj 250 / 250 250 / 250 241 ML @ 1 MG/MIN 33.33 mls/hr IV.CONT .[id number] [facility] Rx#: [id number] Versed Inj 50 mg In 50 ml @ 2 50 / 50 MG/HR 2 mls/hr IV.CONT TITRATE PRN Rx#:[id number] Cordarone Inj 150 MG In D5W Inj 100 / 100 97 ML @ 100 mls/hr IV.SIG ONCE ONE Rx#:[id number] Levophed Inj 4 MG In NS Inj 246 500 / 500 250 / 250 250 / 250 ML @ 2 MCG/MIN 7.5 mls/hr IV. SIG TITRATE PRN Rx#:[id number] Zosyn 3.375 GM Premix 50 ML @ 50 / 50 150 / 150 100 mls/hr IV.SIG Q6H TAMMY Rx#: [id number] Sodium Bicarbonate 8.4% Inj 150 1150 / 1150 1150 / 1150 1000 / 1000 MEQ In Sterile Water for Inj 1 ,000 ML @ 150 mls/hr IV.SIG CONT TAMMY Rx#:[id number] Tube Feeding 110 / 110 64 / 64 Tube Irrigant 80 / 80 Intake (Blood Product) Amt 800 / 800 Rbc As-3 Leukoreduced Unit 400 / 400 [id number] Rbc As-3 Leukoreduced Unit 400 / 400 [id number] Output: Urine Amount (Catheter) 100 / 100 Indwelling Urethral Catheter 100 / 100 Other: Date of Last Bowel Movement 05/05/18 05/07/18 05/07/18 # Incontinent Bowel Movements 1 - Constitutional no acute distress - Routine Respiratory Exam Present: CTA bilaterally - Routine Cardiovascular Exam Present: RRR - Routine Abdominal Exam Present: soft - Urinary Catheter Management Indwelling Urethral Catheter Cath placed during this visit: yes Reason for continuing: Acute urinary retention Insertion date: 05/04/18 Insertion time: 11:35 Assessment and Plan - Assessment (1) Acute renal failure (ARF) Code(s): N17.9 - Acute kidney failure, unspecified Status: Acute Qualifiers: Acute renal failure type: unspecified Qualified Code(s): N17.9 - Acute kidney failure, unspecified Plan: Remains in shock with multi-organ failure. At this point, his prognosis is grim and initiation of dialysis would not improve his outcome. The patient's son has discussed with his sisters and have decided to withdraw support this afternoon when they all arrive from [place]. Will sign off. (2) Shock Code(s): R57.9 - Shock, unspecified Status: Acute
[2018-05-07] MEDS: Vasopressin Inj 40 UNIT in Dextrose 5% in Water Inj 98 ML IV.CONT SCH ×2 (13:28)
--- NOTE | 2018-05-07 15:41 | P.PNCC ---
Subjective Subjective Remarks/Hospital Course: The patient is a 82-year-old male with past medical history significant for COPD on home oxygen, type 2 diabetes, chronic kidney disease ( history is limited by the fact that patient is oriented 1 and in severe respiratory distress) who was discharged yesterday from [place] after right hip replacement by Dr. Weaver. He was brought to the emergency department today from the longterm for hyperglycemia, worsening shortness of breath and hypotension. EMS noted that the patient's O2 saturation on room air was in the 80s and placed on nonrebreather. In the ED patient was hypotensive and was administered 1 L of IV fluids. ABG showed 7.29/33/68, BE -10 and this was on simple mask. Lab work showed Troponin was elevated, at 5, BNP at 2599. The patient was administered aspirin 300 mg rectally. Chest x-ray showed pulmonary edema. The patient's BUN/creatinine was elevated, at 77/2.9. Patient has chronic kidney disease with baseline creatinine 1.5-1.7 per previous records. Patient also received broad-spectrum antibiotics in the ED. After reviewing the troponin and EKG, I have started the patient on IV heparin will continue aspirin, consult cardiology Dr. Douglass, due to hypotension avoid beta blockers and YUNG inhibitors at this time. I went down to the ED to evaluate the patient, on my arrival patient was in acute respiratory distress and hypoxemic 100% nonrebreather, Dr. Shrestha in the ED was getting ready to intubate the patient. Apparently patient deteriorated over the last 15 minutes, possibly aspirated. I examined the patient prior to intubation, he is quite tachypneic with bilateral rales and wheezes. It appears like congestive heart failure/pulmonary edema has worsened. Patient currently has NSTEMI and severe pulmonary edema. Patient is hypotensive with systolic blood pressure in the 80s. I have ordered stat Levophed to be started at 5 mcg/min and titrated up as needed to keep map above 65. Dr. Shrestha intubated and placed patient on vent. I have placed vent orders, due to hypoxia use PEEP 10. I will do the bedside echo after the patient arrived in ICU. If the EF is low we will attempt low-dose dobutamine. Ordered to receive IV heparin, continued aspirin, IV Lasix 40 mg every 12 hours along with IV albumin. I will also place an arterial line once the patient is ICU to start hemodynamic monitoring, Flowtrack monitoring for cardiac output cardiac index. For probable sepsis we will continue broad-spectrum antibiotics Zosyn and single dose of vancomycin 05/05: T-max 99.1. Currently 99. Tomi's midazolam drip at 8 mg and hour and fentanyl drip for sedation/analgesia. Remains on norepinephrine drip at 10 mcg/ min. 2 feeds will be initiated today. No bowel movement. 05/06 Patient is sedated with Versed 5mg/hr, on Levophed 20 mics, Vasopressin 0.04, given 4amps bicarb overnight. Renal function worse with Cr: 3.82 from 2.33 Receiving 1u PRBC for Hgb 6.6 SUBJECTIVE: 05/07: Afebrile. Resting in bed in no acute distress. Phenylephrine drip is been discontinued. Currently on vasopressin and norepinephrine. Creatinine continues to worsen. Objective Vital Signs / I&O: Vital Signs 05/06/18 16:00 05/06/18 19:47 05/06/18 20:00 Temperature 97.5 F L 98.1 F Pulse Rate 85 78 78 Respiratory Rate 20 20 20 Blood Pressure 89/55 L 94/67 L Pulse Oximetry 95 97 97 05/06/18 23:45 05/07/18 00:00 05/07/18 01:12 Temperature 98.4 F Pulse Rate 76 74 Respiratory Rate 22 20 21 Blood Pressure 98/55 L Pulse Oximetry 98 97 05/07/18 03:36 05/07/18 04:00 05/07/18 04:19 Temperature 98.3 F Pulse Rate 101 H 101 H Respiratory Rate 21 20 21 Blood Pressure 113/69 Pulse Oximetry 96 95 05/07/18 08:00 05/07/18 09:00 05/07/18 09:11 Temperature 98.8 F Pulse Rate 77 74 75 Respiratory Rate 20 20 Blood Pressure 108/59 L Pulse Oximetry 95 95 05/07/18 10:49 05/07/18 12:00 05/07/18 12:54 Temperature 97.8 F Pulse Rate 79 Respiratory Rate 20 20 20 Blood Pressure 108/53 L Pulse Oximetry 97 96 97 05/07/18 13:50 Temperature Pulse Rate 96 H Respiratory Rate Blood Pressure Pulse Oximetry Intake & Output 05/06/18 05/07/18 05/07/18 18:59 06:59 18:59 Intake Total 2910 / 2910 1993 1650 / 1650 Output Total 100 / 100 Balance 2810 / 2810 1993 1650 / 1650 Weight 105 kg Intake: IV 1999 1850 / 1850 1650 / 1650 Cordarone Inj 450 MG In NS Inj 250 / 250 250 / 250 241 ML @ 1 MG/MIN 33.33 mls/hr IV.CONT .Q7H31M [facility] Rx#: [id number] Versed Inj 50 mg In 50 ml @ 2 50 / 50 MG/HR 2 mls/hr IV.CONT TITRATE PRN Rx#:[id number] Pitressin Inj 40 UNIT In D5W 100 / 100 Inj 98 ML @ 0.04 UNITS/MIN 6 mls/hr IV.CONT CONT [facility] Rx#: [id number] Cordarone Inj 150 MG In D5W Inj 100 / 100 97 ML @ 100 mls/hr IV.SIG ONCE ONE Rx#:[id number] Levophed Inj 4 MG In NS Inj 246 500 / 500 250 / 250 250 / 250 ML @ 2 MCG/MIN 7.5 mls/hr IV. SIG TITRATE PRN Rx#:[id number] Zosyn 3.375 GM Premix 50 ML @ 50 / 50 150 / 150 50 / 50 100 mls/hr IV.SIG Q6H [facility] Rx#: [id number] Sodium Bicarbonate 8.4% Inj 150 1150 / 1150 1150 / 1150 1000 / 1000 MEQ In Sterile Water for Inj 1 ,000 ML @ 150 mls/hr IV.SIG CONT [facility] Rx#:[id number] Tube Feeding 110 / 110 64 / 64 Tube Irrigant 80 / 80 Intake (Blood Product) Amt 800 / 800 Rbc As-3 Leukoreduced Unit 400 / 400 [id number] Rbc As-3 Leukoreduced Unit 400 / 400 [id number] Output: Urine Amount (Catheter) 100 / 100 Indwelling Urethral Catheter 100 / 100 Other: Date of Last Bowel Movement 05/05/18 05/07/18 05/07/18 # Incontinent Bowel Movements 1 Result Diagrams: 05/07/18 04:24 05/07/18 04:24 Other Results: Microbiology 05/04/18 07:55 Blood - Peripheral Aerobic Blood Culture - Preliminary No growth in 3 days 05/04/18 07:55 Blood - Peripheral Anaerobic Blood Culture - Preliminary No growth in 3 days 05/04/18 07:40 Blood - Peripheral Aerobic Blood Culture - Preliminary No growth in 3 days 05/04/18 07:40 Blood - Peripheral Anaerobic Blood Culture - Preliminary No growth in 3 days 05/04/18 12:45 Sputum - Endotracheal Gram Stain - Final 05/04/18 12:45 Sputum - Endotracheal Sputum Culture - Final Heavy growth normal respiratory lee 05/04/18 11:35 Catheterized Urine Urine Culture - Final No growth in 48 hours Imaging: Chest X-Ray 05/04/18 07:48 CONCLUSION: Marked deterioration appearance of the chest from comparison study. Significant perihilar infiltrate evident. Chest X-Ray 05/04/18 11:41 CONCLUSION: Left central line tip in superior vena cava without pneumothorax. Abdomen/Bladder Ultrasound 05/05/18 00:00 CONCLUSION: 1. Kidneys are slightly echogenic which can be seen with medical renal disease. 2. Minimal ascites. Head CT 05/05/18 00:00 CONCLUSION: 1. Large hypodense area in the right cerebellum characteristic of an infarct. Age is uncertain. MRI should be considered for further evaluation. 2. No evidence of supratentorial acute infarct, hemorrhage, mass or edema. 3. 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 Chest X-Ray 05/06/18 06:00 CONCLUSION: Slight improvement of bilateral patchy airspace disease. Objective Remarks: GENERAL: 82-year-old male currently orotracheally intubated in place SKIN: Warm and dry. Small abrasion over right knee without active bleeding HEAD: Atraumatic. Normocephalic. EYES: Pupils equal and round. No scleral icterus. No injection or drainage. ENT: No nasal bleeding or discharge. Mucous membranes pink and moist. NECK: Trachea midline. No JVD. CARDIOVASCULAR: Tachycardic, RR. S1, S2 no S4. Without murmur RESPIRATORY: Coarse rhonchorous breath sounds appreciated anteriorly and posteriorly. No wheezing. Breath sounds equal bilaterally. GASTROINTESTINAL: Abdomen soft, non-tender, nondistended. Hypoactive bowel sounds appreciated MUSCULOSKELETAL: Extremities with trace bilateral lower extremity edema. NEUROLOGICAL: Sedated and intubated. Positive gag and cough. Does not withdraw to pain. 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 Age is uncertain. No evidence of supratentorial acute infarct, hemorrhage, mass or edema. 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 MRI brain ordered patient is however unstable for MRI brain EEG 05/05: Moderate encephalopathy, no epileptiform features Goal of RA SS of -2 Acetaminophen 650 mg by tube every 6 hours. As needed fever RESP: Acute hypoxemic respiratory failure COPD with exacerbation Pulmonary edema Probable healthcare associated pneumonia -PRVC/AC 20600/1.10/29/39 Albuterol/ipratropium aerosols every 4 hours with albuterol aerosols every 2 hours as needed for dyspnea Ventilator bundle Spontaneous breathing trials when clinically indicated Follow-up chest x-ray in a.m. 05/08 with ABG CV: NSTEMI Cardiogenic/Septic shock Pulmonary edema Acute systolic heart failure -Flowtrack monitoring of cardiac index and output. -Continue with pressors (norepinephrine 9 mcg/min, Vasopressin 0.04 U/min)keep MAP> 65mmHg Stress dose steroids hydrocortisone 50 mg IV every 6 hours -2D echocardiogram left ventricular systolic function is probably moderate-to- severly reduced with an estimated ejection fraction in the range of 35-40%. There is severe hypokinesis of the mid to distal septal, mid to distal anterior and apical garcia. Normal left ventricular size. Wall thickness is normal -Received aspirin in the ED, continue aspirin 81 mg twice daily -no beta blockers or YUNG inhibitors due to cardiogenic/septic shock Discontinue atorvastatin 40 mg daily secondary to elevated LFTs with lipid panel ordered Discontinue amiodarone drip due to elevated transaminases GI: Hypoalbuminemia Elevated transaminases Due to intolerance holding tube feeding Nepro with goal rate 40ml/hr Lansoprazole for GI prophylaxis Docusate sodium senna 1 tablet twice daily for bowel regimen CPK slightly elevated at 1300. Liver ultrasound pending. 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 Hold diuretics given worsening renal function. Currently on sterile water with 3 ampules of sodium bicarbonate 50 cc an hour ID: Severe sepsis Probable HCAP -Continue with abx (vancomycin/piperacillin/tazobactam), monitor for signs of infections ( Fever, WBC) Pertinent cultures 05/04 -blood cultures 2 -NGTD 05/04 -UA -pending 05/04 -sputum -nl resp lee HEME: Leukocytosis Normocytic anemia -Monitor CBC, CMP -Transfuse 2u PRBC for Hgb 6.6 ENDO: Hyperglycemia/uncontrolled diabetes -SSI medium scale and insulin detemir discontinued. Currently on insulin drip at 4 units an hour to maintain euglycemia with accuchecks Q4 MSK: Recent right IM hip nailing by Dr. Bryan Weaver 05/11 Physical therapy evaluate and treat PROPH: -Bilateral lower extremity SCDs. Heparin subcu, lansoprazole LINES: Left subclavian central line placed 05/04/2018. Level 3 follow-up
[2018-05-07] MEDS ORDERED: Piperacil/Tazo 2.25 GM Premix 50 ML IV.SIG SCH (18:00)
[2018-05-07] MEDS ORDERED: Hyoscyamine Liq Drops 0.125 MG/ML 15 ML Bottle SL ONE (18:29)
[2018-05-07] MEDS ORDERED: Bisacodyl 10 MG Supp RECTAL PRN (18:29)
[2018-05-07] MEDS ORDERED: Acetaminophen 650 MG Supp RECTAL PRN (18:29)
[2018-05-07] MEDS ORDERED: HYDROmorphone PF Inj 1 MG/ML Ampul IV.PUSH PRN (18:29)
[2018-05-07] MEDS ORDERED: HYDROmorphone PF Inj 1 MG/ML Ampul IV.PUSH ONE ×2 (18:29)
[2018-05-07] MEDS ORDERED: HYDROmorphone PF Inj 2 MG/ML Vial IV.PUSH PRN (19:14)
[2018-05-07] MEDS ORDERED: HYDROmorphone PF Inj 2 MG/ML Vial IV.PUSH ONE ×3 (19:30)
[2018-05-07] MEDS ORDERED: Heparin - SQ 10,000 UNITS/ML Vial SQ SCH (21:00)
--- NOTE | 2018-05-08 17:52 | P.DN ---
Discharge Sum: Prov - Provider Primary care physician: Diogo Carr MD Admitting clinician: Nessa Egan Attending physician on admission: Rigo Lowery Consults: 05/04/18 10:55 Consult to Cardiology Routine Consulting Provider: Get Douglass Does the patient have a Kitchen Steward who follows them?: No Preferred [employer] Home Demonstration Agent:: Bow Maker Machine Tender Physician Reason for Consultation: NSTEMI Notified:: Office Spoke with:: Lisa Date Notified:: 05/04/18 Time Notified:: 11:29 Ordering Provider: MISTI 05/05/18 13:31 HUB Only Consult Order Routine Consulting Provider: Rodrigue Husain 05/06/18 07:26 Consult to Nephrology Routine Consulting Provider: Kahlil Garcia Does the patient have a Cyber Intel Planner who follows them?: No Preferred Nephrology Pattern Clerk:: Bow Maker Machine Tender Physician Reason for Consultation: ARF, metabolic acidosis Notified:: Office Spoke with:: Deanna Date Notified:: 05/06/18 Time Notified:: 07:43 Ordering Provider: BOZENA Consult to Palliative Care Routine Consulting Provider: Rachid Yee Reason for Consultation: to asses with goals of care Notified:: Office Spoke with:: David Date Notified:: 05/06/18 Time Notified:: 08:02 Comments:: Ordering Provider: BOZENA 05/06/18 07:32 Consult to Neurology Routine Consulting Provider: Brenda Braun Reason for Consultation: ? 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 Age is uncertain. No evidence of supratentorial acute infarct, hemorrhage, mass or edema. 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 MRI brain ordered patient is however unstable for MRI brain EEG 05/05: Moderate encephalopathy, no epileptiform features Goal of RA SS of -2 Acetaminophen 650 mg by tube every 6 hours. As needed fever RESP: Acute hypoxemic respiratory failure COPD with exacerbation Pulmonary edema Probable healthcare associated pneumonia -PRVC/AC 20/600/1.10/29/39 Albuterol/ipratropium aerosols every 4 hours with albuterol aerosols every 2 hours as needed for dyspnea Ventilator bundle Spontaneous breathing trials when clinically indicated Follow-up chest x-ray in a.m. 05/08 with ABG CV: NSTEMI Cardiogenic/Septic shock Pulmonary edema Acute systolic heart failure -Flowtrack monitoring of cardiac index and output. -Continue with pressors (norepinephrine 9 mcg/min, Vasopressin 0.04 U/min)keep MAP> 65mmHg Stress dose steroids hydrocortisone 50 mg IV every 6 hours -2D echocardiogram left ventricular systolic function is probably moderate-to- severly reduced with an estimated ejection fraction in the range of 35-40%. There is severe hypokinesis of the mid to distal septal, mid to distal anterior and apical garcia. Normal left ventricular size. Wall thickness is normal -Received aspirin in the ED, continue aspirin 81 mg twice daily -no beta blockers or YUNG inhibitors due to cardiogenic/septic shock Discontinue atorvastatin 40 mg daily secondary to elevated LFTs with lipid panel ordered Discontinue amiodarone drip due to elevated transaminases GI: Hypoalbuminemia Elevated transaminases Due to intolerance holding tube feeding Nepro with goal rate 40ml/hr Lansoprazole for GI prophylaxis Docusate sodium senna 1 tablet twice daily for bowel regimen CPK slightly elevated at 1300. Liver ultrasound pending. 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 Hold diuretics given worsening renal function. Currently on sterile water with 3 ampules of sodium bicarbonate 50 cc an hour ID: Severe sepsis Probable HCAP -Continue with abx (vancomycin/piperacillin/tazobactam), monitor for signs of infections ( Fever, WBC) Pertinent cultures 05/04 -blood cultures 2 -NGTD 05/04 -UA -pending 05/04 -sputum -nl resp lee HEME: Leukocytosis Normocytic anemia -Monitor CBC, CMP -Transfuse 2u PRBC for Hgb 6.6 ENDO: Hyperglycemia/uncontrolled diabetes -SSI medium scale and insulin detemir discontinued. Currently on insulin drip at 4 units an hour to maintain euglycemia with accuchecks Q4 MSK: Recent right IM hip nailing by Dr. Bryan Weaver 05/11 Physical therapy evaluate and treat Family decided to withdraw care. Documents signed by Drs. Lowery and Don - Additional Data Attending physician: Nessa Egan MD
--- NOTE | 2018-05-09 11:03 | P.PCN ---
Date of procedure: 05/04/18 Pre-op diagnosis: Shcok Post-op diagnosis: same Procedure: Right radial arterial line placement A time-out was completed verifying correct patient, procedure, site, positioning , and special equipment if applicable. Allens test was performed to ensure adequate perfusion. The patients right wrist was prepped and draped in sterile fashion. 1% Lidocaine was used to anesthetize the area. After establishing access to the right radial artery with introducer needle, and placing a guidewire a 20G arterial line was introduced into the radial artery using Seldinger technique and the guidewire was removed. There was appropriate pulsatile blood return. The catheter was then sutured in place to the skin and a sterile dressing applied. Perfusion to the extremity distal to the point of catheter insertion was checked and found to be adequate. Anesthesia: local Surgeon: Nessa Egan Estimated blood loss (mL): 1 Pathology: none sent Condition: critical Disposition: ICU
== END 2018-05-07 20:13 | disposition expired ==
LOC: NEPE 07:16 → NEDA 11:00 → HIMC 15:24
PROVIDERS: ADMIT Internal Medicine; ATTEND Internal Medicine